=== PATIENT | male | born 1995 | race African-American/Black ===

== ENCOUNTER → 2017-01-27 | Outpatient (CLI) | payer MEDICAID ==
[~2017-01-27] MED LIST: ALBU8I INH; CLOZ100 PO; CLOZ100T3 PO; CLOZ200T PO; DEPA500T3 PO; DIVA250T PO; DIVA500 PO; FLOV44AE IN; PALI234P IM; VENTAER INH
--- NOTE | 2017-01-27 13:49 | EKG ---
Date Performed: 01/27/2017 Time Performed: 13:16:06 PTAGE: 21 years EKG: Normal Sinus rhythm Normal EKG Compared to the PREVIOUS TRACING rate has decreased. PREVIOUS TRACIN09/20/2015 12.04 DOCTOR: Roderick Diehl Interpretating Date/Time 01/27/2017 13:48:35
== END ==
LOC: HCAV 13:01 → EDBD 13:01
PROVIDERS: ATTEND Psychiatry & Neurology Child & Adolescent Psychiatry
DX: F20.3 Undifferentiated schizophrenia (principal)
CPT/HCPCS: 93005

== ENCOUNTER 2017-02-27 02:04 | Emergency (ER) | payer MEDICAID, OTHER ==
[~2017-02-27] VITALS: Ht 170.2 cm; Wt 72.7 kg
[~2017-02-27 02:04] MED LIST changes: -CLOZ200T PO; -DIVA250T PO
[2017-02-27 02:13] VITALS: BP 140/78; PULSE 112; RESP 20; O2SAT 98
[2017-02-27] MEDS ORDERED: LORazepam 2 MG/ML VIAL IM ONE (02:30)
[2017-02-27] MEDS ORDERED: HALOPERIDOL LACTATE 5 MG/ML AMP IM ONE (02:30)
--- NOTE | 2017-02-27 02:35 | PD ---
HPI Chief Complaint: Psychiatric Symptoms Time Seen by Provider: 02:31 Travel History International Travel<30 days: No Contact w/Intl Traveler<30days: No Traveled to known affect area: No History of Present Illness HPI 22-year-old black male presents to emergency department under [place] act by PD. Family had called police notifying them that he had been leaving the house and they were concerned that he had been doing drugs and he has been noncompliant with his medications. He has a history of developmental delay. They state that he has the intelligence of a 10-year-old. The patient here denies any suicidal or homicidal ideation. Patient babbles incoherently at times. PFSH Past Medical History Medical History: Unable to Obtain ADHD: No Asthma: Yes Anxiety: Yes Depression: Yes Cancer: No (See EMR) Cardiovascular Problems: No (See EMR) Diabetes: No (See EMR) Diminished Hearing: No Headaches: No (See EMR) Neurologic: No Psychiatric: Yes Respiratory: Yes (ASTHMA) Immunizations Current: Yes Migraines: No Schizophrenia: Yes Seizures: No (See EMR) Thyroid Disease: No Ulcer: No Tetanus Vaccination: Unknown Influenza Vaccination: No PNEUMOCCOCAL Vaccine (Year): 1 Past Surgical History Surgical History: Unable to Obtain Social History Alcohol Use: No Tobacco Use: Yes (4 CIGS A DAY) Substance Use: Yes (PT STATES " OCCASIONAL POT") Allergies-Medications (Allergen,Severity, Reaction): Coded Allergies: aspirin (Unverified Allergy, Severe, TACHYCARDIA, 01/28/17) Reported Meds & Prescriptions Reported Meds & Active Scripts Active Review of Systems ROS Limitations: Psychotic, Poor Historian Except as stated in HPI: all other systems reviewed are Neg Physical Exam Narrative GENERAL: Well-nourished, well-developed patient. SKIN: Warm and dry. HEAD: Normocephalic and atraumatic. EYES: No scleral icterus. No injection or drainage. ENT: Positive nasal congestion noted. Mucous membranes pink. Airway patent. NECK: Supple, trachea midline. Moves head freely without obvious discomfort. CARDIOVASCULAR: Regular rate and rhythm without murmurs, gallops, or rubs. RESPIRATORY: Few rhonchi. No wheezes. GASTROINTESTINAL: Abdomen soft, non-tender, nondistended. EXTREMITIES: No cyanosis or edema. BACK: Nontender without obvious deformity. No CVA tenderness. NEURO: Patient is alert and oriented. no sensorimotor deficits. Nonfocal. Normal speech. PSYCH: Poor insight and judgment. No auditory or visual hallucinations. Babbles incoherently at times. Data Data Last Documented VS Vital Signs Date Time Temp Pulse Resp B/P (MAP) Pulse Ox O2 Delivery O2 Flow Rate FiO2 02/27/17 02:13 112 20 140/78 (98) 98 Orders Orders Complete Blood Count With Diff (02/27/17 02:17) Comprehensive Metabolic Panel (02/27/17 02:17) Valproic Acid (Depakene) (02/27/17 02:17) Psych Screen (02/27/17 02:17) Drug Screen, Random Urine (02/27/17 02:17) Haloperidol Inj (Haldol Inj) (02/27/17 02:30) Lorazepam Inj (Ativan Inj) (02/27/17 02:30) Chest, Single Ap (02/27/17 03:14) Labs Laboratory Tests Test 02/27/17 02:23 02/27/17 04:38 White Blood Count 22.1 TH/MM3 Red Blood Count 5.45 MIL/MM3 Hemoglobin 14.5 GM/DL Hematocrit 43.2 % Mean Corpuscular Volume 79.3 FL Mean Corpuscular Hemoglobin 26.7 PG Mean Corpuscular Hemoglobin Concent 33.7 % Red Cell Distribution Width 13.1 % Platelet Count 260 TH/MM3 Mean Platelet Volume 8.1 FL Neutrophils (%) (Auto) 79.2 % Lymphocytes (%) (Auto) 14.1 % Monocytes (%) (Auto) 5.4 % Eosinophils (%) (Auto) 0.6 % Basophils (%) (Auto) 0.7 % Neutrophils # (Auto) 17.5 TH/MM3 Lymphocytes # (Auto) 3.1 TH/MM3 Monocytes # (Auto) 1.2 TH/MM3 Eosinophils # (Auto) 0.1 TH/MM3 Basophils # (Auto) 0.1 TH/MM3 CBC Comment DIFF FINAL Differential Comment Blood Urea Nitrogen 12 MG/DL Creatinine 1.17 MG/DL Random Glucose 94 MG/DL Total Protein 8.2 GM/DL Albumin 4.4 GM/DL Calcium Level 8.7 MG/DL Alkaline Phosphatase 80 U/L Aspartate Amino Transf (AST/SGOT) 18 U/L Alanine Aminotransferase (ALT/SGPT) 18 U/L Total Bilirubin 0.9 MG/DL Sodium Level 138 MEQ/L Potassium Level 3.5 MEQ/L Chloride Level 107 MEQ/L Carbon Dioxide Level 20.8 MEQ/L Anion Gap 10 MEQ/L Estimat Glomerular Filtration Rate 94 ML/MIN Valproic Acid (Depakene) Level 36 MCG/ML [facility] Medical Decision Making Medical Screen Exam Complete: Yes Emergency Medical Condition: Yes Medical Record Reviewed: Yes Interpretation(s) Laboratory Tests Test 02/27/17 02:23 02/27/17 04:38 White Blood Count 22.1 TH/MM3 Red Blood Count 5.45 MIL/MM3 Hemoglobin 14.5 GM/DL Hematocrit 43.2 % Mean Corpuscular Volume 79.3 FL Mean Corpuscular Hemoglobin 26.7 PG Mean Corpuscular Hemoglobin Concent 33.7 % Red Cell Distribution Width 13.1 % Platelet Count 260 TH/MM3 Mean Platelet Volume 8.1 FL Neutrophils (%) (Auto) 79.2 % Lymphocytes (%) (Auto) 14.1 % Monocytes (%) (Auto) 5.4 % Eosinophils (%) (Auto) 0.6 % Basophils (%) (Auto) 0.7 % Neutrophils # (Auto) 17.5 TH/MM3 Lymphocytes # (Auto) 3.1 TH/MM3 Monocytes # (Auto) 1.2 TH/MM3 Eosinophils # (Auto) 0.1 TH/MM3 Basophils # (Auto) 0.1 TH/MM3 CBC Comment DIFF FINAL Differential Comment Blood Urea Nitrogen 12 MG/DL Creatinine 1.17 MG/DL Random Glucose 94 MG/DL Total Protein 8.2 GM/DL Albumin 4.4 GM/DL Calcium Level 8.7 MG/DL Alkaline Phosphatase 80 U/L Aspartate Amino Transf (AST/SGOT) 18 U/L Alanine Aminotransferase (ALT/SGPT) 18 U/L Total Bilirubin 0.9 MG/DL Sodium Level 138 MEQ/L Potassium Level 3.5 MEQ/L Chloride Level 107 MEQ/L Carbon Dioxide Level 20.8 MEQ/L Anion Gap 10 MEQ/L Estimat Glomerular Filtration Rate 94 ML/MIN Valproic Acid (Depakene) Level 36 MCG/ML Last 24 hours Impressions Chest X-Ray 02/27/17 0314 Signed Impressions: Service Date/Time: February 03:50 - CONCLUSION: No acute cardiopulmonary process. Emiliano Mata MD Differential Diagnosis MDM: High Differential diagnoses: Schizophrenia, schizoaffective disorder, bipolar, anxiety, depression, adjustment reaction, mood disorder NOS, ODD, depressive disorder NOS, dementia, dementia with agitation, psychosis NOS, substance induced mood disorder, intermittent explosive disorder, Asperger syndrome, infection,electrolyte abnormality, malingering. Narrative Course Mental health screening discussed with the patient. Psychiatric screen ordered. The patient is medicated with Haldol 5 mg and Ativan 2 mg IM for his agitation. Patient is a flight risk. He appears to be unreliable. Diagnosis Primary Impression: Medical clearance for psychiatric admission Additional Impression: Schizophrenia, paranoid type Condition: Stable Edilberto Romano Feb 27, 2017 02:35
[2017-02-27 02:50] LABS: AUTOMATED NEUTROPHIL # 17.5 TH/MM3 (1.8-7.7); BASOPHIL # 0.1 TH/MM3 (0-0.2); BASOPHIL % 0.7 % (0.0-2.0); EOSINOPHIL # 0.1 TH/MM3 (0-0.4); EOSINOPHIL % 0.6 % (0.0-4.0); HEMATOCRIT 43.2 % (39.0-51.0); HEMO FLAGS DIFF FINAL; LYMPH % 14.1 % (9.0-44.0); LYMPHOCYTE # 3.1 TH/MM3 (1.0-4.8); MEAN CELL VOLUME 79.3 FL (80.0-100.0); MEAN CORPUSCULAR HEMOGLOBIN 26.7 PG (27.0-34.0); MEAN CORPUSCULAR HGB CONC 33.7 % (32.0-36.0); MONO % 5.4 % (0.0-8.0); NEUT % 79.2 % (16.0-70.0); PLATELET COUNT 260 TH/MM3 (150-450); RED BLOOD COUNT 5.45 MIL/MM3 (4.50-5.90); RED CELL DISTRIBUTION WIDTH 13.1 % (11.6-17.2); WHITE BLOOD COUNT 22.1 TH/MM3 (4.0-11.0)
[2017-02-27 03:00] LABS: ALT (GPT) 18 U/L (12-78); ANION GAP 10 MEQ/L (5-15); AST (GOT) 18 U/L (15-37); BICARBONATE 20.8 MEQ/L (21.0-32.0); BLOOD UREA NITROGEN 12 MG/DL (7-18); CHLORIDE 107 MEQ/L (98-107); GLOMERULAR FILTRATION RATE 94 ML/MIN (>89); POTASSIUM 3.5 MEQ/L (3.5-5.1); SODIUM (NA) 138 MEQ/L (136-145)
[2017-02-27 03:02] LABS: ALKALINE PHOSPHATASE 80 U/L (45-117); TOTAL BILIRUBIN ADULT 0.9 MG/DL (0.2-1.0)
--- NOTE | 2017-02-27 04:28 | RADRPT ---
EXAM DATE/TIME: 02/27/2017 03:50 [facility] COMPARISON: No previous studies available for comparison. INDICATIONS : Congestion. Cough. MEDICAL HISTORY : None. SURGICAL HISTORY : None. ENCOUNTER: Initial ACUITY: 1 day PAIN SCORE: 6/10 LOCATION: Bilateral chest FINDINGS: A single view of the chest demonstrates the lungs to be symmetrically aerated without evidence of mas s, infiltrate or effusion. The cardiomediastinal contours are unremarkable. Osseous structures are intact. CONCLUSION: No acute cardiopulmonary process. Emiliano Mata MD on February 27, 2017 at 4:27 Board Certified Radiologist. This report was verified electronically.
[2017-02-27 08:19] VITALS: BP 124/65; PULSE 87; RESP 18; TEMP 98; O2SAT 100
[2017-02-27 17:31] VITALS: BP 134/74; PULSE 68; RESP 16; TEMP 97.8; O2SAT 98
[2017-02-27] MEDS ORDERED: cloZAPine 100 MG TAB PO ONE (17:45)
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
[2017-02-27] MEDS ORDERED: CLOZ200T PO (17:56)
== END 2017-02-27 18:35 | disposition home or self-care (01) ==
LOC: NEPD 02:04 → NEPJ 18:35
DX: F20.0 Paranoid schizophrenia (principal); J45.909 Unspecified asthma, uncomplicated; F41.9 Anxiety disorder, unspecified; F32.9 Major depressive disorder, single episode, unspecified; F17.210 Nicotine dependence, cigarettes, uncomplicated; Z88.6 Allergy status to analgesic agent
CPT/HCPCS: 71010; 80053; 80164; 80307; 85025; 96372; J1630; J2060

== ENCOUNTER 2017-03-01 14:36 | Emergency (ER) | payer MEDICAID, OTHER ==
[~2017-03-01 14:36] MED LIST changes: -ALBU8I INH; -CLOZ100 PO; -CLOZ100T3 PO; +CLOZ200T PO; -DEPA500T3 PO; -DIVA500 PO; -FLOV44AE IN; -PALI234P IM; -VENTAER INH
[2017-03-01 14:38] VITALS: BP 119/82; PULSE 97; RESP 18; TEMP 98.1; O2SAT 100
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
[2017-03-01 16:06] LABS: AUTOMATED NEUTROPHIL # 6.4 TH/MM3 (1.8-7.7); BASOPHIL # 0.1 TH/MM3 (0-0.2); BASOPHIL % 0.6 % (0.0-2.0); EOSINOPHIL # 0.2 TH/MM3 (0-0.4); EOSINOPHIL % 1.8 % (0.0-4.0); HEMATOCRIT 41.1 % (39.0-51.0); HEMO FLAGS DIFF FINAL; LYMPH % 26.5 % (9.0-44.0); LYMPHOCYTE # 2.8 TH/MM3 (1.0-4.8); MEAN CELL VOLUME 80.5 FL (80.0-100.0); MEAN CORPUSCULAR HEMOGLOBIN 26.6 PG (27.0-34.0); MONO % 10.3 % (0.0-8.0); NEUT % 60.8 % (16.0-70.0); PLATELET COUNT 228 TH/MM3 (150-450); RED BLOOD COUNT 5.11 MIL/MM3 (4.50-5.90); RED CELL DISTRIBUTION WIDTH 13.1 % (11.6-17.2); WHITE BLOOD COUNT 10.5 TH/MM3 (4.0-11.0)
[2017-03-01 16:40] LABS: BLOOD, URINE NEG (NEG); COMMENT (UR) CULT NOT INDICATED; CULTURE IF INDICATED CULT NOT INDICATED; GLUCOSE,URINE NEG (NEG); KETONE, URINE 10 mg/dL (NEG); MUCUS URINE FEW /lpf (OCC); NITRITE,URINE NEG (NEG); URINE COLOR YELLOW (YELLW/STRAW)
[2017-03-01 16:57] LABS: ALKALINE PHOSPHATASE 79 U/L (45-117); ALT (GPT) 19 U/L (12-78); ANION GAP 8 MEQ/L (5-15); AST (GOT) 22 U/L (15-37); BICARBONATE 25.2 MEQ/L (21.0-32.0); BLOOD UREA NITROGEN 11 MG/DL (7-18); CHLORIDE 105 MEQ/L (98-107); GLOMERULAR FILTRATION RATE 132 ML/MIN (>89); POTASSIUM 3.9 MEQ/L (3.5-5.1); SODIUM (NA) 138 MEQ/L (136-145); TOTAL BILIRUBIN ADULT 0.9 MG/DL (0.2-1.0)
[2017-03-05 06:20] LABS: CLOZAPINE/NORCLOZAPINE TOTAL Unable to calculate ng/mL (>450); NORCLOZAPINE <25 ng/mL
== END 2017-03-01 17:33 | disposition home or self-care (01) ==
LOC: NEPD 14:36
DX: F29 Unspecified psychosis not due to a substance or known physiological condition (principal); F39 Unspecified mood [affective] disorder; J45.909 Unspecified asthma, uncomplicated; F41.9 Anxiety disorder, unspecified; F20.9 Schizophrenia, unspecified; F17.210 Nicotine dependence, cigarettes, uncomplicated
CPT/HCPCS: 80053; 80159; 80307; 81001; 85025; 99284; G0480

== ENCOUNTER 2017-03-01 18:15 | Inpatient (IN) | payer MEDICAID, OTHER ==
[~2017-03-01] VITALS: Ht 167.6 cm; Wt 60.2 kg
[2017-03-01 18:20] VITALS: BP 137/80; PULSE 113; RESP 20; TEMP 98; O2SAT 98
[2017-03-01] MEDS ORDERED: cloZAPine 100 MG TAB PO ONE (20:00)
--- NOTE | 2017-03-01 20:06 | PD ---
HPI Chief Complaint: Psychiatric Symptoms Time Seen by Provider: 19:50 Travel History International Travel<30 days: No Contact w/Intl Traveler<30days: No Traveled to known affect area: No History of Present Illness HPI 22-year-old male with history of schizophrenia presents to emergency department acutely psychotic. Patient offers no history. He is rambling with mumbled speech. He is demonstrating very bizarre behavior. He appears without distress. PFSH Past Medical History ADHD: No Asthma: Yes Anxiety: Yes Depression: Yes Cancer: No (See EMR) Diabetes: No (See EMR) Diminished Hearing: No Neurologic: No Psychiatric: Yes Respiratory: Yes (ASTHMA) Immunizations Current: Yes Migraines: No Schizophrenia: Yes Thyroid Disease: No Ulcer: No PNEUMOCCOCAL Vaccine (Year): 1 Social History Alcohol Use: No Tobacco Use: Yes (4 CIGS A DAY) Substance Use: No Allergies-Medications (Allergen,Severity, Reaction): Coded Allergies: aspirin (Unverified Allergy, Severe, TACHYCARDIA, 01/28/17) Reported Meds & Prescriptions Reported Meds & Active Scripts Active Clozapine 200 Mg Tab 400 Mg PO DAILY 5 Days Clozapine 200 Mg Tab 200 Mg PO DAILY 5 Days Review of Systems Except as stated in HPI: all other systems reviewed are Neg Physical Exam Narrative GENERAL: Well-nourished, well-developed male patient, ambulatory, pacing, rambling but in no acute distress SKIN: Focused skin assessment warm/dry. HEAD: Normocephalic. EYES: No scleral icterus. No injection or drainage. NECK: Supple, trachea midline. No JVD or lymphadenopathy. CARDIOVASCULAR: Regular rate and rhythm without murmurs, gallops, or rubs. RESPIRATORY: Breath sounds equal bilaterally. No accessory muscle use. GASTROINTESTINAL: Abdomen soft, non-tender, nondistended. MUSCULOSKELETAL: No cyanosis, or edema. BACK: Nontender without obvious deformity. No CVA tenderness. Data Data Last Documented VS Vital Signs Date Time Temp Pulse Resp B/P (MAP) Pulse Ox O2 Delivery O2 Flow Rate FiO2 03/01/17 18:20 98.0 113 20 137/80 (99) 98 Room Air Orders Orders Clozapine (Clozaril) (03/01/17 20:00) Psych Screen (03/01/17 20:12) Admit Order (Ed Use Only) (03/01/17 22:06) Admit To Inpatient Psych (03/01/17 ) Vital Signs (Adult) [id number].Q12H.E (03/01/17 22:06) Activity Oob Ad Julissa (03/01/17 22:06) Level Of Observation (Psych) (03/01/17 22:06) Diet Regular Basic (03/02/17 Breakfast) Basic Metabolic Panel (Bmp) (03/02/17 06:00) Lipid Profile (03/02/17 06:00) Hemoglobin (Hgb) A1c (03/02/17 06:00) MDM Medical Decision Making Medical Screen Exam Complete: Yes Emergency Medical Condition: Yes Medical Record Reviewed: Yes Differential Diagnosis Acute psychosis versus mood disorder versus personality disorder discusses adjustment reaction disorder versus substance abuse Narrative Course 22-year-old male returns to the emergency department for evaluation of acute psychosis. Patient's history of schizophrenia. Patient was just discharged. Lab work will not be repeated. He is medically cleared to undergo psychiatric screening for further evaluation and disposition. Mental health screening discussed with the patient. Psychiatric screen ordered. Diagnosis Primary Impression: Acute psychosis Additional Impression: Medical clearance for psychiatric admission Condition: Kalyani Gibbs Mar 01, 2017 20:06
[2017-03-01 22:45] VITALS: BP 155/75; PULSE 98; RESP 20; O2SAT 100
[2017-03-01] MEDS ORDERED: MAGNESIUM HYDROXIDE SUSP 30 ML CUP PO PRN (23:45)
[2017-03-01] MEDS ORDERED: LORazepam 1 MG TAB PO PRN (23:45)
[2017-03-01] MEDS ORDERED: LORazepam 2 MG/ML VIAL IM PRN (23:45)
[2017-03-01] MEDS ORDERED: ALUMINUM/MAGNESIUM/SIMETH 30 ML CUP PO PRN (23:45)
[2017-03-01] MEDS ORDERED: ACETAMINOPHEN 325 MG TAB PO PRN (23:45)
[2017-03-02 05:34] VITALS: BP 112/59; PULSE 63; RESP 15; TEMP 98.6; O2SAT 96
[2017-03-02] MEDS: NICOTINE 21 MG/24 HR PATCH T-DERMAL SCH (09:00)
[2017-03-02] MEDS: OLANZapine 5 MG TAB PO SCH ×2 (11:18→20:59)
--- NOTE | 2017-03-02 11:53 | HHI.HP ---
Provisional Diagnosis Admission Date Mar 01, 2017 at 22:09 [place] I. Chronic paranoid schizophrenia [place] II. Deferred [place] III. No significant medical history [place] IV. Multiple psychiatric hospitalizations [place] V. 40 Certification of Person's Competence To Provide Express and Informed Consent I have personally examined Divine Gay , a person being served at [facility] on, Mar 02, 2017 11:34. Express and informed consent means consent voluntarily given in writing, by a competent person, after sufficient explanation and disclosure of the subject matter involved to enable the person to make a knowing and willful decision without any element of force, fraud, deceit, duress, or other form of constraint or coercion. This person is 18 years of age or older, is not now known to be incompetent to consent to treatment with a guardian advocate, and does not have a health care surrogate or proxy currently making medical treatment decisions. I have found this person to be one of the following: [] Competent to provide express and informed consent, as defined above, for voluntary admission to this facility and is competent to provide express and informed consent for treatment. He/she has the consistent capacity to make well reasoned, willful, and knowing decisions concerning his or her medical or mental health treatment. The person fully and consistently understands the purpose of the admission for examination/placement and is fully capable of personally exercising all rights assured under [place] [] Incompetent to provide express and informed consent to voluntary admission, and this is incompetent to provide express and informed consent to treatment. The person must be transferred to involuntary status and a petition for a guardian advocate filed with the Circuit Court. [x] Refusing to provide express and informed consent to voluntary admission but is competent to provide express and informed consent for treatment. The person must be discharged or transferred to involuntary status. Form shall be completed within 24 hours of a person's arrival at the receiving facility and filed in the clinical record of each person: 1. Admitted on a voluntary basis 2. Permitted to provide express and informed consent to his/her own treatment 3. Allowed to transfer from involuntary to voluntary status 4. Prior to permitting a person to consent to his or her own treatment after having been previously found incompetent to consent to treatment. History of Present Illness Capacity: Has Capacity HPI The patient is a 22-year-old man, domicile with his mother, unemployed, single, with psychiatric history of schizophrenia paranoid type, multiple psychiatric hospitalizations, last hospitalization was here at [place] in 2016, he was seen by me that 2 days ago in [place] for medication refill, but as per mother pharmacy did not fill up his medication because the patient did not have a current CBC, patient is supposed to be in Clozaril 400 mg at bedtime and 200 mg a.m., Depakote 500 g twice a day. He does not have any medical history, he was brought to the ER this time because patient has been decompensating of his psychosis. On psychiatric evaluation today patient is oppositional, not answering my questions, he keeps rambling disorganized, internally preoccupied. Collateral information from his Mother, Nadege Valencia : He has not been taking his medication for a bout three days and he had decompensated since yesterday. He ran out of medication and he could not go to psychiatrist due to [place]ric[place]. He is supposed to be taking Clozaril 200 mg am 400 mg hs, not taking int for about 3 days. Depakote 500 mg bid. When he was taking his medication he was stable. She does not have any problem taking the patient back once his is stable. She does not have any safety complaining of this moment. She reports that the patient occasionally uses marijuana. Review of Systems ROS Limitations: Uncooperative Past Psych History Violence risk - self (6 mos) Elevated Substance Abuse History Drugs/Alcohol past 12 months Patient uses marijuana occasionally Past Family Social History Coded Allergies: aspirin (Unverified Allergy, Severe, TACHYCARDIA, 01/28/17) Active Scripts Clozapine (Clozapine) 200 Mg Tab, 400 MG PO DAILY for Schizophrenia for 5 Days, #10 TAB 0 Refills Prov:Cruz,Zoraida Henny Cornell VESSEL LINER 02/27/17 Clozapine (Clozapine) 200 Mg Tab, 200 MG PO DAILY for Schizophrenia for 5 Days, #5 TAB 0 Refills Prov:Cruz,Zoraida Henny Cornell VESSEL LINER 02/27/17 Current Medications Medications (Trade) Dose Ordered Sig/Harvey Route Start Time Stop Time Status Last Admin (Ativan) 1 mg Q6H PRN PO 03/01/17 23:45 (Ativan Inj) 1 mg Q6H PRN IM 03/01/17 23:45 (Tylenol) 650 mg Q4H PRN PO 03/01/17 23:45 (Milk Of Magnesia Liq) 30 ml DAILY PRN PO 03/01/17 23:45 (Mag-Al Plus Susp Liq) 30 ml Q6H PRN PO 03/01/17 23:45 (Habitrol 21 Mg Patch.24 Hr) 1 patch DAILY T-DERMAL 03/02/17 09:00 Miscellaneous Information 1 HS T-DERMAL 03/02/17 21:00 (ZyPREXA) 5 mg BID PO 03/02/17 09:00 03/02/17 11:18 Family History No family psychiatric history Social History Patient was born and raised in [place], he lives with his mother and [facility], he is unemployed, single Patient's Strengths (min. 2) Family support Physical Exam No EPS, no tremors, no psychomotor agitation or retardation, no stiffness present Vital Signs Vital Signs Date Time Temp Pulse Resp B/P (MAP) Pulse Ox O2 Delivery O2 Flow Rate FiO2 03/02/17 05:34 98.6 63 15 112/59 (76) 96 03/01/17 18:20 Room Air Lab Results Depakote levels 36 Mental Status Examination Mental status is limited at this time due to his lack of cooperation Appearance man, [facility], fair hygiene, uncooperative, Speech: Hesitant, Other (selectively mute) Thought Process: Other (disorganized) Assessment & Plan Problem List: (1) schizophrenic disorder chronic paranoid type Status: Acute Assessment & Plan: On psychiatric evaluation today patient seems to be disorganized, refusing to cooperate, selectively mute, but definitely internally stimulated, rambling. His mother reported that he has been disorganized, not sleeping at all, talking to himself since he has been running out of his medication for about 3 days. Patient will be admitted in psychiatry for stabilization. Will start Clozaril 25 mg bid and will titrate as patient can tolerate to his outpatient stable dose. We will restart Depakote 500 mg twice a day. Monitor closely mood and behavior. We'll order olanzapine 10 mg IM every 8 hours when necessary aggressive behavior and agitation. Labs reviewed. Patient will be admitted in the 2700 unit. direct service worker intervention for psychosocial assessment and coordination of safe discharge planning. Assessment & Plan Estimated LOS: Bear Duque MD Mar 02, 2017 11:52
[2017-03-02 17:11] VITALS: BP 114/61; PULSE 86; RESP 18; TEMP 98.5; O2SAT 99
[2017-03-02] MEDS: REMOVE OLD NICOTINE PATCH T-DERMAL SCH (21:00)
[2017-03-03] MEDS ORDERED: OLANZapine IM 10 MG VIAL IM ONE (00:14)
[2017-03-03] MEDS ORDERED: OLANZapine IM 10 MG VIAL IM SCH (00:15)
[2017-03-03 06:06] VITALS: BP 124/66; PULSE 80; RESP 17; TEMP 97.7; O2SAT 100
--- NOTE | 2017-03-03 08:38 | PD.PSY.CON ---
Provisional Diagnosis Admission Date Mar 01, 2017 at 22:09 [place] I. 1. Schizophrenia, paranoid type, acute exacerbation [place] II. Deferred History of Present Illness Service Psychiatry Consult Requested By Dr. Lopez Reason for Consult Second opinion for involuntary psychiatric hospitalization Primary Care Physician Unknown HPI From Dr. Lopez's H&P: The patient is a 22-year-old man, domicile with his mother, unemployed, single, with psychiatric history of schizophrenia paranoid type, multiple psychiatric hospitalizations, last hospitalization was here at [place] in 2016, he was seen by me that 2 days ago [place] for medication refill, but as per mother pharmacy did not fill up his medication because the patient did not have a current CBC, patient is supposed to be in Clozaril 400 mg at bedtime and 200 mg a.m., Depakote 500 g twice a day. He does not have any medical history, he was brought to the ER this time because patient has been decompensating of his psychosis. On psychiatric evaluation today patient is oppositional, not answering my questions, he keeps rambling disorganized, internally preoccupied. Collateral information from his Mother, Nadege Valencia : He has not been taking his medication for a bout three days and he had decompensated since yesterday. He ran out of medication and he could not go to psychiatrist due to [place]ric[place]. He is supposed to be taking Clozaril 200 mg am 400 mg hs, not taking int for about 3 days. Depakote 500 mg bid. When he was taking his medication he was stable. She does not have any problem taking the patient back once his is stable. She does not have any safety complaining of this moment. She reports that the patient occasionally uses marijuana. On my examination today: Patient seen and examined with nurse. Chart reviewed. Case discussed with nursing staff. On my exam today, patient appears frankly internally stimulated. He is muttering to himself and displaying odd facial expressions. He is delayed with respect to his thought process and appears to be experiencing thought blocking. He cocks his head to one side suddenly and tells me that this is because a demon has stabbed him in the head. Affect is flat. He is unable to tell me whether he is suicidal or homicidal and appears unreliable to contract for safety presently. Psychiatric interview was quite limited because of his degree of thought disorder. Called by the nurse shortly after making rounds: patient agitated, yelling and hitting the wall in his room. I have ordered patient medicated with Zyprexa ETO. Unable to obtain meaningful past psychiatric, family, chemical dependency or social history from this patient because of his degree of psychiatric decompensation at present. Charge nurse has obtained a medication list from the patient's mother, and this is: Depakote 250 mg twice daily, Clozaril 100 mg in the morning and 200 mg at bedtime, and hydroxyzine 25 mg 3 times daily. Review of Systems ROS Limitations: Psychotic, Poor Historian Except as stated in HPI: all other systems reviewed are Neg Past Family Social History Coded Allergies: aspirin (Unverified Allergy, Severe, TACHYCARDIA, 01/28/17) Past Medical History See electronic medical record Active Scripts Clozapine (Clozapine) 200 Mg Tab, 400 MG PO DAILY for Schizophrenia for 5 Days, #10 TAB 0 Refills Prov:Cruz,Zoraida Henny Cornell PROJECTION TECHNICIAN 02/27/17 Clozapine (Clozapine) 200 Mg Tab, 200 MG PO DAILY for Schizophrenia for 5 Days, #5 TAB 0 Refills Prov:Cruz,Zoraida Henny Cornell PROJECTION TECHNICIAN 02/27/17 Current Medications Medications (Trade) Dose Ordered Sig/Harvey Route Start Time Stop Time Status Last Admin (Tylenol) 650 mg Q4H PRN PO 03/01/17 23:45 (Milk Of Magnesia Liq) 30 ml DAILY PRN PO 03/01/17 23:45 (Mag-Al Plus Susp Liq) 30 ml Q6H PRN PO 03/01/17 23:45 (Habitrol 21 Mg Patch.24 Hr) 1 patch DAILY T-DERMAL 03/02/17 09:00 Miscellaneous Information 1 HS T-DERMAL 03/02/17 21:00 (ZyPREXA) 5 mg BID PO 03/02/17 09:00 03/02/17 20:59 Family History Unable to obtain because of patient's degree of psychiatric decompensation Social History Unable to obtain because of patient's degree of psychiatric decompensation Patient's Strengths (min. 2) In a monitored setting. Verbally fluent. Physical Exam Physical exam completed by ED provider. On my examination today, the patient appears to be in no acute physical distress. No motor abnormalities noted. Labs and vitals reviewed: Vital Signs Vital Signs Date Time Temp Pulse Resp B/P (MAP) Pulse Ox O2 Delivery O2 Flow Rate FiO2 03/03/17 06:06 97.7 80 17 124/66 (85) 100 03/01/17 18:20 Room Air Lab Results Item Value Date Time Sodium Level 138 MEQ/L 03/03/17 1015 Potassium Level 4.1 MEQ/L 03/03/17 1015 Chloride Level 107 MEQ/L 03/03/17 1015 Carbon Dioxide Level 23.6 MEQ/L 03/03/17 1015 Blood Urea Nitrogen 10 MG/DL 03/03/17 1015 Creatinine 0.83 MG/DL 03/03/17 1015 Random Glucose 89 MG/DL 03/03/17 1015 Hemoglobin A1c is listed as in process. No CBC or LFTs obtain this admission, although they were recently obtained on and I have reviewed these. Mental Status Examination No motor abnormalities noted except for the odd facial expressions. Appearance In hospital gown. Fairly disheveled. Speech: Other (rambling, somewhat hesitant) Orientation: Person Memory: Impaired (describe) (difficult to assess, psychosis interferes) Thought Process: Other (delayed with thought blocking) Thought Content: Paranoid Language Limited sample but seems fairly unremarkable Fund of Knowledge Suspect somewhat decreased but limited sample Hallucination Type: Auditory, Visual, Tactile Attention and Concentration: Easily Distracted Suicidal Ideation: No (none voiced but unreliable to contract for safety) Homicidal Ideation: No (none voiced but unreliable to contract for safety) Insight: Poor Judgment: Poor Affect if Inappropriate: Flat Mood: Other (no reported issues with mood) Motor Activity: Normal gait Assessment & Plan Problem List: (1) Schizophrenia, paranoid type ICD Codes: F20.0 - Paranoid schizophrenia Status: Acute Assessment & Plan Given the circumstances of the patient's presentation here, and his presentation on my examination today, I concur with Dr. Lopez that the patient meets criteria for involuntary psychiatric hospitalization under the [place] act. I've completed the second opinion paperwork. I am covering for Dr. Lopez today, and this note serves as my progress note. I will check a stat CBC (needed for clozapine) and LFTs and restart patient's home meds clozapine, Depakote, and hydroxyzine at doses listed above as it appears that psychotic decompensation was driven by unintended med non-adherence. Plan to check a Depakote level after the appropriate interval. Continue to monitor on the high acuity unit in the meantime. Continue other medications and care as ordered. Discharge Planning Per Dr. Lopez Request HC Surrog/Guard Advoc?: Yes (I have additionally completed a healthcare surrogate and guardian advocate request as I desktop support engineer the patient incapacitated to consent for medications on my assessment.) Viktor Maria MD Mar 03, 2017 08:38
[2017-03-03] MEDS: OLANZapine 5 MG TAB PO SCH (09:00)
[2017-03-03] MEDS: NICOTINE 21 MG/24 HR PATCH T-DERMAL SCH (09:11)
[2017-03-03] MEDS ORDERED: OLANZapine IM 10 MG VIAL IM STA (10:06)
[2017-03-03 11:07] LABS: ANION GAP 7 MEQ/L (5-15); BICARBONATE 23.6 MEQ/L (21.0-32.0); BLOOD UREA NITROGEN 10 MG/DL (7-18); CHLORIDE 107 MEQ/L (98-107); GLOMERULAR FILTRATION RATE 139 ML/MIN (>89); POTASSIUM 4.1 MEQ/L (3.5-5.1); SODIUM (NA) 138 MEQ/L (136-145)
[2017-03-03 11:09] LABS: HDL CHOLESTEROL 48.5 MG/DL (40.0-60.0); LDL CHOLESTEROL 74 MG/DL (0-99)
[2017-03-03] MEDS: hydrOXYzine HCL 25 MG TAB PO SCH ×2 (13:00→18:06)
[2017-03-03] MEDS ORDERED: LORazepam 2 MG TAB PO PRN (13:15)
[2017-03-03] MEDS ORDERED: LORazepam 2 MG/ML VIAL IM PRN (13:15)
[2017-03-03] MEDS ORDERED: diphenhydrAMINE HCL 50 MG/ML VIAL IM PRN (13:15)
[2017-03-03] MEDS ORDERED: diphenhydrAMINE HCL 50 MG CAP PO PRN (13:15)
[2017-03-03 14:31] LABS: HEMOGLOBIN A1a 1.2 %; HEMOGLOBIN A1b 1.7 %; HEMOGLOBIN Ao 85.6 %; HEMOGLOBIN LA1C 1.9 %; HEMOGLOBIN P3 3.5 %
[2017-03-03] MEDS: DIVALPROEX SODIUM DELAYED RELEASE 250 MG TAB PO SCH (21:00)
[2017-03-03] MEDS ORDERED: cloZAPine 100 MG TAB PO SCH (21:00)
[2017-03-03] MEDS: REMOVE OLD NICOTINE PATCH T-DERMAL SCH (21:00)
[2017-03-03 23:21] LABS: INDIRECT BILIRUBIN 0.3 MG/DL (0.0-0.8); TOTAL BILIRUBIN ADULT 0.4 MG/DL (0.2-1.0)
[2017-03-04] MEDS: NICOTINE 21 MG/24 HR PATCH T-DERMAL SCH (09:00)
[2017-03-04] MEDS ORDERED: cloZAPine 100 MG TAB PO SCH (09:00)
[2017-03-04] MEDS: DIVALPROEX SODIUM DELAYED RELEASE 250 MG TAB PO SCH (09:07)
[2017-03-04] MEDS: hydrOXYzine HCL 25 MG TAB PO SCH ×2 (09:07→13:17)
[2017-03-04 09:43] LABS: AUTOMATED NEUTROPHIL # 3.2 TH/MM3 (1.8-7.7); BASOPHIL % 0.5 % (0.0-2.0); EOSINOPHIL # 0.3 TH/MM3 (0-0.4); EOSINOPHIL % 4.1 % (0.0-4.0); HEMATOCRIT 42.2 % (39.0-51.0); HEMO FLAGS DIFF FINAL; LYMPH % 40.3 % (9.0-44.0); LYMPHOCYTE # 2.8 TH/MM3 (1.0-4.8); MEAN CELL VOLUME 80.6 FL (80.0-100.0); MEAN CORPUSCULAR HEMOGLOBIN 26.9 PG (27.0-34.0); MEAN CORPUSCULAR HGB CONC 33.3 % (32.0-36.0); NEUT % 46.1 % (16.0-70.0); PLATELET COUNT 216 TH/MM3 (150-450); RED BLOOD COUNT 5.23 MIL/MM3 (4.50-5.90); RED CELL DISTRIBUTION WIDTH 13.3 % (11.6-17.2); WHITE BLOOD COUNT 6.9 TH/MM3 (4.0-11.0)
[2017-03-04] MEDS ORDERED: CLOZ200T PO (11:05)
[2017-03-04] MEDS ORDERED: DIVA250T PO (11:05)
--- NOTE | 2017-03-04 11:11 | HHI.DS ---
Psychiatry Discharge Summary Inpatient Psychiatric care?: Yes Advance Directive: No Reason Not Provided: Due to Patient Condition Mental Health AdvanceDirective: No Health Care Proxy: Yes Admission Admission Date Mar 01, 2017 at 22:09 Admission Diagnosis: (1) Schizophrenia, paranoid type ICD Code: F20.0 - Paranoid schizophrenia Brief History From Dr. Lopez's H&P: The patient is a 22-year-old man, domicile with his mother, unemployed, single, with psychiatric history of schizophrenia paranoid type, multiple psychiatric hospitalizations, last hospitalization was here at [facility] in 2016, he was seen by me that 2 days ago in [facility] for medication refill, but as per mother pharmacy did not fill up his medication because the patient did not have a current CBC, patient is supposed to be in Clozaril 400 mg at bedtime and 200 mg a.m., Depakote 500 g twice a day. He does not have any medical history, he was brought to the ER this time because patient has been decompensating of his psychosis. On psychiatric evaluation today patient is oppositional, not answering my questions, he keeps rambling disorganized, internally preoccupied. Collateral information from his Mother, Nadege Valencia : He has not been taking his medication for a bout three days and he had decompensated since yesterday. He ran out of medication and he could not go to psychiatrist due to [place]. He is supposed to be taking Clozaril 200 mg am 400 mg hs, not taking int for about 3 days. Depakote 500 mg bid. When he was taking his medication he was stable. She does not have any problem taking the patient back once his is stable. She does not have any safety complaining of this moment. She reports that the patient occasionally uses marijuana. On my examination today: Patient seen and examined with nurse. Chart reviewed. Case discussed with nursing staff. On my exam today, patient appears frankly internally stimulated. He is muttering to himself and displaying odd facial expressions. He is delayed with respect to his thought process and appears to be experiencing thought blocking. He cocks his head to one side suddenly and tells me that this is because a demon has stabbed him in the head. Affect is flat. He is unable to tell me whether he is suicidal or homicidal and appears unreliable to contract for safety presently. Psychiatric interview was quite limited because of his degree of thought disorder. Called by the nurse shortly after making rounds: patient agitated, yelling and hitting the wall in his room. I have ordered patient medicated with Zyprexa ETO. Unable to obtain meaningful past psychiatric, family, chemical dependency or social history from this patient because of his degree of psychiatric decompensation at present. Charge nurse has obtained a medication list from the patient's mother, and this is: Depakote 250 mg twice daily, Clozaril 100 mg in the morning and 200 mg at bedtime, and hydroxyzine 25 mg 3 times daily. Tobacco Use In Past 30 Days: Refused To Answer Alcohol Use: Never Hospital Course Patient was admitted in the psychiatric unit due to decompensation of his psychosis and for medication adjustment. Initial safety measures were taken. Psychosocial psychiatric assessment performed. Patient was restarted in Clozaril the lowest dose, that were titrated out fast to his usual outpatient dose. During the hospitalization the patient did not show any symptomatology of side effects of Clozaril, patient reached baseline days later, he was a little bit disorganized at times internally preoccupied and agitated, which seems to be part of his baseline. Social workers and psychiatric team communicated with his mother who did not share any safety concern about the patient other than going back to his usual medications. In one location the patient became agitated and difficult to redirect verbally the unit and ETO was needed. But at the moment of discharge, patient does not present prominent psychotic symptoms, he denies mood symptoms, he denies suicidal and homicidal ideation, he denies visual and auditory hallucinations. Results Blood Pressure 124 / 66 Vital Signs Date Time Temp Pulse Resp B/P (MAP) Pulse Ox O2 Delivery O2 Flow Rate FiO2 03/03/17 06:06 97.7 80 17 124/66 (85) 100 03/01/17 18:20 Room Air Laboratory Tests Test 03/03/17 10:15 03/04/17 07:35 Mean Corpuscular Hemoglobin 26.9 PG (27.0-34.0) Monocytes (%) (Auto) 9.0 % (0.0-8.0) Eosinophils (%) (Auto) 4.1 % (0.0-4.0) Laboratory Results Test 03/03/17 10:15 Cholesterol Level 141 MG/DL (120-200) HDL Cholesterol 48.5 MG/DL (40.0-60.0) Hemoglobin A1c 5.6 % (4.3-6.0) LDL Cholesterol 74 MG/DL (0-99) Triglycerides Level 95 MG/DL (42-150) Summary of Procedures No procedures done Pending results at discharge: No Medications # of Antipsychotic meds at D/C: 0 Approp Antipsych med options 1 - Minimum of three failed multiple trials of monotherapy. 2 - Documented plan to taper to monotherapy due to previous use of multiple meds OR cross-taper in progress at D/C. 3 - Documentation of augmentation of Clozapine. 4 - Justification other than those listed in allowable values 1-3, document here : Discharge Discharge Date: Mar 04, 2017 Discharge Diagnosis: (1) Schizophrenia, paranoid type ICD Code: F20.0 - Paranoid schizophrenia Status: Acute Mental Status Exam at Disch -Americans young man, fair hygiene, [facility], superficially cooperative, some what guarded. His his speech is hesitant, low volume. His mood is "I am fine", affect is flat. His thought process is logical, linear, somewhat concrete. Thought content is devoid of suicidal ideation, homicidal ideation, visual and auditory hallucinations at this moment. Insight, impulse control, judgment are fair. Cognition is intact. Pt Condition on Discharge: Fair Discharge Disposition: Discharge Home Discharge Instructions Diet Instructions: As Tolerated, No Restrictions Activities you can perform: Regular-No Restrictions Scheduled Appointment: Dr. Ashby Appointment Date: Mar 07, 2017 Appointment Time: 10:45 am Discharge Time > 30 minutes Discharge/Advance Care Plan Health Problems: (1) Schizophrenia, paranoid type Goals to promote your health * To prevent worsening of your condition and complications * To maintain your health at the optimal level Directions to meet your goals Take your medications as prescribed Follow your dietary instruction Follow activity as directed Keep your appointments as scheduled Take your immunizations and boosters as scheduled If your symptoms worsen call your PCP, if no PCP go to Urgent Care Center or Emergency Room For 06/01 questions related to your inpatient stay or results of tests pending at discharge, please contact Dr. Bear Lopez at Smoking is Dangerous to Your Health. Avoid second hand smoking Bear Lopez MD Mar 04, 2017 11:11
== END 2017-03-04 14:05 | disposition home or self-care (01) | DRG 885 ==
LOC: NEPJ 18:15 → NEDA 22:09 → H270 22:49
PROVIDERS: ADMIT Psychiatry & Neurology Psychiatry; ATTEND Psychiatry & Neurology Psychiatry
DX: F20.0 Paranoid schizophrenia (principal); Z91.138 Patient's unintentional underdosing of medication regimen for other reason; F17.210 Nicotine dependence, cigarettes, uncomplicated; F12.90 Cannabis use, unspecified, uncomplicated; T42.4X6A Underdosing of benzodiazepines, initial encounter; T42.6X6A Underdosing of other antiepileptic and sedative-hypnotic drugs, initial encounter; Z88.6 Allergy status to analgesic agent
CPT/HCPCS: 71010; 80048; 80053; 80061; 80076; 80159; 80164; 80307; 81001; 83036; 85025; 96372; 99284; G0480; J1630; J2060; Q0163

== ENCOUNTER 2017-03-29 11:41 | Inpatient (IN) | payer OTHER ==
[~2017-03-29] VITALS: Ht 167.6 cm; Wt 65.8 kg
[~2017-03-29 11:41] MED LIST changes: +DIVA250T PO
[2017-03-29 11:50] VITALS: BP 131/61; PULSE 98; RESP 15; TEMP 98.4; O2SAT 96
--- NOTE | 2017-03-29 12:07 | PD ---
HPI Chief Complaint: Psychiatric Symptoms Time Seen by Provider: 11:56 Travel History International Travel<30 days: No Contact w/Intl Traveler<30days: No Traveled to known affect area: No History of Present Illness HPI 22 yo M arrives as a [place] due to suicidal ideation statements, "maybe I should just ." Auditory hallucinations reported. Patient himself. Patient evidently smoked K2. He has no medical complaint. Location neuropsychiatric. Severity constant. Records show previous compliance with valproic acid. Patient states he does not take it today. PFSH Past Medical History ADHD: No Asthma: Yes Anxiety: Yes Depression: Yes Cancer: No (See EMR) Diabetes: No (See EMR) Diminished Hearing: No Headaches: No Neurologic: No Psychiatric: Yes (Hx of treatment for Schizophrenia) Respiratory: Yes (ASTHMA) Immunizations Current: Yes Migraines: No Schizophrenia: Yes Thyroid Disease: No Ulcer: No PNEUMOCCOCAL Vaccine (Year): 1 Social History Alcohol Use: No Tobacco Use: Yes (4 CIGS A DAY) Substance Use: No Allergies-Medications (Allergen,Severity, Reaction): Coded Allergies: aspirin (Unverified Allergy, Severe, TACHYCARDIA, 01/28/17) Reported Meds & Prescriptions Reported Meds & Active Scripts Active Divalproex DR (Divalproex Sodium) 250 Mg Tabdr 500 Mg PO Q12HR 60 Days Clozapine 200 Mg Tab 400 Mg PO DAILY 30 Days Clozapine 200 Mg Tab 200 Mg PO DAILY 30 Days Review of Systems ROS Limitations: Clinical Condition, Psychotic Physical Exam Narrative GENERAL: 22-year-old male well-nourished well-developed no acute distress appears to be responding to internal stimuli SKIN: Focused skin assessment warm/dry. HEAD: Atraumatic. Normocephalic. EYES: Pupils equal and round. No scleral icterus. No injection or drainage. ENT: No nasal bleeding or discharge. Mucous membranes pink and moist. NECK: Trachea midline. No JVD. CARDIOVASCULAR: Regular rate and rhythm. No murmur appreciated. RESPIRATORY: No accessory muscle use. Clear to auscultation. Breath sounds equal bilaterally. GASTROINTESTINAL: Abdomen soft, non-tender, nondistended. Hepatic and splenic margins not palpable. MUSCULOSKELETAL: No obvious deformities. No clubbing. No cyanosis. No edema. NEUROLOGICAL: Awake and alert. No obvious cranial nerve deficits. Motor grossly within normal limits. Normal speech. PSYCHIATRIC: + reports of SI; appears to be responding to internal stimuli Data Data Last Documented VS Vital Signs Date Time Temp Pulse Resp B/P (MAP) Pulse Ox O2 Delivery O2 Flow Rate FiO2 03/29/17 12:00 15 03/29/17 11:50 98.4 98 131/61 (84) 96 VS reviewed Orders Orders Valproic Acid (Depakene) (03/29/17 11:58) Psych Screen (03/29/17 11:58) Valproic Acid (Depakene) (03/29/17 13:15) Labs Laboratory Tests Test 03/29/17 12:05 Valproic Acid (Depakene) Level 23 MCG/ML MDM Medical Decision Making Medical Screen Exam Complete: Yes Emergency Medical Condition: Yes Medical Record Reviewed: Yes Differential Diagnosis Altered mental status/psychosis due to infection/environmental exposure/ metabolic abnormality, polypharmacy, alcohol abuse/intoxication, illicit or prescribed drug abuse, malingering/secondary gain, non-organic psychiatric disease Narrative Course The patient arrives with auditory hallucinations history of K2 abuse and reported suicidal ideation. Valproic acid 23; 500mg PO given here He is medically clear for psychiatric evaluation. Diagnosis Primary Impression: schizophrenic disorder chronic paranoid type Additional Impression: noncompliance medication Paco Mason MD Mar 29, 2017 12:07
[2017-03-29] MEDS ORDERED: VALPROIC ACID 250 MG CAP PO ONE (13:15)
[2017-03-29 19:13] VITALS: BP 123/66; PULSE 87; RESP 16
[2017-03-29 21:15] VITALS: BP 128/72; PULSE 80; RESP 16; TEMP 97.7; O2SAT 100
[2017-03-29] MEDS ORDERED: MAGNESIUM HYDROXIDE SUSP 30 ML CUP PO PRN (21:30)
[2017-03-29] MEDS ORDERED: ALUMINUM/MAGNESIUM/SIMETH 30 ML CUP PO PRN (21:30)
[2017-03-29] MEDS ORDERED: ACETAMINOPHEN 325 MG TAB PO PRN (21:30)
[2017-03-29] MEDS: diphenhydrAMINE HCL 50 MG CAP PO PRN (22:36)
[2017-03-30] MEDS: LORazepam 2 MG/ML VIAL IM PRN (01:28)
[2017-03-30 05:44] VITALS: BP 135/96; PULSE 88; RESP 16; TEMP 98.5; O2SAT 97
[2017-03-30] MEDS: DIVALPROEX SODIUM DELAYED RELEASE 250 MG TAB PO SCH ×2 (08:58→21:58)
[2017-03-30] MEDS: NICOTINE 21 MG/24 HR PATCH T-DERMAL SCH (08:59)
[2017-03-30] MEDS ORDERED: cloZAPine 25 MG TAB PO SCH (09:00)
--- NOTE | 2017-03-30 14:35 | HHI.HP ---
Provisional Diagnosis Admission Date Mar 29, 2017 at 20:10 [place] I. Schizophrenia, K2 use disorder Certification of Person's Competence To Provide Express and Informed Consent I have personally examined Divine Gay , a person being served at [facility] on, Mar 30, 2017 14:27. Express and informed consent means consent voluntarily given in writing, by a competent person, after sufficient explanation and disclosure of the subject matter involved to enable the person to make a knowing and willful decision without any element of force, fraud, deceit, duress, or other form of constraint or coercion. This person is 18 years of age or older, is not now known to be incompetent to consent to treatment with a guardian advocate, and does not have a health care surrogate or proxy currently making medical treatment decisions. I have found this person to be one of the following: [] Competent to provide express and informed consent, as defined above, for voluntary admission to this facility and is competent to provide express and informed consent for treatment. He/she has the consistent capacity to make well reasoned, willful, and knowing decisions concerning his or her medical or mental health treatment. The person fully and consistently understands the purpose of the admission for examination/placement and is fully capable of personally exercising all rights assured under [place] Incompetent to provide express and informed consent to voluntary admission, and this is incompetent to provide express and informed consent to treatment. The person must be transferred to involuntary status and a petition for a guardian advocate filed with the Circuit Court. [x] Refusing to provide express and informed consent to voluntary admission but is competent to provide express and informed consent for treatment. The person must be discharged or transferred to involuntary status. Form shall be completed within 24 hours of a person's arrival at the receiving facility and filed in the clinical record of each person: 1. Admitted on a voluntary basis 2. Permitted to provide express and informed consent to his/her own treatment 3. Allowed to transfer from involuntary to voluntary status 4. Prior to permitting a person to consent to his or her own treatment after having been previously found incompetent to consent to treatment. History of Present Illness Capacity: Has Capacity HPI The patient is a 22-year-old man, domicile with his mother, unemployed, single, with psychiatric history of schizophrenia paranoid type, multiple psychiatric hospitalizations, last hospitalization was here at [facility] last month , patient is supposed to be in Clozaril 400 mg at bedtime and 200 mg a.m., Depakote 500 g twice a day. He does not have any medical history, brought to ER due to suicidal ideation statements, "maybe I should just . " Auditory hallucinations reported. Patient himself. Patient evidently smoked K2. He has no medical complaint. Location neuropsychiatric. Severity constant. Records show previous compliance with valproic acid. Patient states he does not take it today. Lyn leves are 22. On psychiatric evaluation today patient is oppositional, not answering my questions, he keeps rambling disorganized, internally preoccupied. As per nursing report, last night patient was aggressive, internally preoccupied stating that Demons were attacking him. He was difficult to redirect verbally, has to be giving ETO to calm him down. Review of Systems Except as stated in HPI: all other systems reviewed are Neg Substance Abuse History Drugs/Alcohol past 12 months Patient reports the use of K2 Past Family Social History Coded Allergies: aspirin (Unverified Allergy, Severe, TACHYCARDIA, 01/28/17) Active Scripts Divalproex DR (Divalproex DR) 250 Mg Tabdr, 500 MG PO Q12HR for health for 60 Days, TAB Prov:Bear Lopez MD 03/04/17 Clozapine (Clozapine) 200 Mg Tab, 400 MG PO DAILY for Schizophrenia for 30 Days , #60 TAB 0 Refills Prov:Bear Lopez MD 03/04/17 Clozapine (Clozapine) 200 Mg Tab, 200 MG PO DAILY for Schizophrenia for 30 Days , #30 TAB 0 Refills Prov:Bear Lopez MD 03/04/17 Current Medications Medications (Trade) Dose Ordered Sig/Harvey Route Start Time Stop Time Status Last Admin (Ativan) 1 mg Q6H PRN PO 03/29/17 21:30 (Ativan Inj) 1 mg Q6H PRN IM 03/29/17 21:30 03/30/17 01:28 (Benadryl) 50 mg Q6H PRN PO 03/29/17 21:30 03/29/17 22:36 (Benadryl Inj) 50 mg Q6H PRN IM 03/29/17 21:30 (Desyrel) 50 mg HS PRN PO 03/29/17 21:30 (Tylenol) 650 mg Q4H PRN PO 03/29/17 21:30 (Milk Of Magnesia Liq) 30 ml DAILY PRN PO 03/29/17 21:30 (Mag-Al Plus Susp Liq) 30 ml Q6H PRN PO 03/29/17 21:30 (Habitrol 21 Mg Patch.24 Hr) 1 patch DAILY T-DERMAL 03/30/17 09:00 03/30/17 08:59 Miscellaneous Information 1 HS T-DERMAL 03/30/17 21:00 (Depakote Dr) 250 mg BID PO 03/30/17 09:00 03/30/17 08:58 (Clozaril) 25 mg BID PO 03/30/17 21:00 UNV Social History Patient was born and raised in [place], he lives with his mother and [facility], he is unemployed, single Physical Exam Vital Signs Vital Signs Date Time Temp Pulse Resp B/P (MAP) Pulse Ox O2 Delivery O2 Flow Rate FiO2 03/30/17 05:44 98.5 88 16 135/96 (109) 97 Mental Status Examination Appearance: Dirty, Disheveled, Malodorous Consciousness: Alert Orientation: Person, Place Speech: Hesitant Language: Adequate Fund of Knowledge: Poor Attention and Concentration: Adequate Memory: Unremarkable Mood: Angry Affect: Irritable Thought Process & Associations: Goal directed Thought Content: Thought blocking Suicidal Ideation: No Suicidal Plan: No Suicidal Intention: No Homicidal Ideation: No Homicidal Plan: No Homicidal Intention: No Insight: Poor Judgment: Poor Assessment & Plan Problem List: (1) Schizophrenia, paranoid type ICD Codes: F20.0 - Paranoid schizophrenia Status: Acute Assessment & Plan: On psychiatric evaluation today patient seems to be disorganized, refusing to cooperate, selectively mute, but definitely internally stimulated, rambling. His mother reported that he has been disorganized, not sleeping at all, talking to himself since, verbally aggressive , in the context of noncompliance with medications and K2 use. Patient will be admitted in psychiatry for stabilization and safety. Will start Clozaril 25 mg bid and will titrate rapidly as patient can tolerate to his outpatient stable dose. We will restart Depakote 500 mg twice a day. Monitor closely mood and behavior. We'll order Thorazine 50 mg IM every 8 hours when necessary aggressive behavior and agitation. Will order CBC, CMP, TSH, Depakote and Clozaril levels also an EKG. Patient will be admitted in the 2700 unit. color drum worker intervention for psychosocial assessment and coordination of safe discharge planning. We'll communicate with outpatient psychiatrist to discuss the benefit of Depot medications. Assessment & Plan Estimated LOS: Bear Lopez MD Mar 30, 2017 14:35
--- NOTE | 2017-03-30 15:05 | HHI.PYPN ---
Subjective Remarks Patient was seen and case discussed with nursing. Patient has not needed any ETO's or restraints. He has not had any outbursts. He remains with an angry, irritable affect and bizarre fixed delusions concerning various circumstances. Patient is focused on his company and to watch his [employer] videos. We watched the videos and patient is showing off his gun collection. Mental Status Examination Appearance: Dirty, Disheveled, Malodorous Consciousness: Alert Orientation: Person, Place Speech: Hesitant Language: Adequate Fund of Knowledge: Poor Attention and Concentration: Adequate Memory: Unremarkable Mood: Angry Affect: Irritable Thought Process & Associations: Disorganized Thought Content: Bizarre thinking, Thought blocking Suicidal Ideation: No Suicidal Plan: No Suicidal Intention: No Homicidal Ideation: No Homicidal Plan: No Homicidal Intention: No Insight: Poor Judgment: Poor Results Vitals/IOs Vital Signs Date Time Temp Pulse Resp B/P (MAP) Pulse Ox O2 Delivery O2 Flow Rate FiO2 03/30/17 05:44 98.5 88 16 135/96 (109) 97 Assessment & Plan Problem List: (1) Schizophrenia, paranoid type ICD Codes: F20.0 - Paranoid schizophrenia Status: Acute Assessment & Plan Continue to investigate that all firearms have been removed and patient has no access next week Justification for Cont. Inpt. Patient will decompensate in a less restrictive setting Hema Pearl DO Mar 30, 2017 15:05
[2017-03-30 17:12] VITALS: BP 130/89; PULSE 87; RESP 17; TEMP 98.2; O2SAT 97
[2017-03-30] MEDS ORDERED: LORazepam 2 MG/ML VIAL IM ONE (21:00)
[2017-03-30] MEDS: REMOVE OLD NICOTINE PATCH T-DERMAL SCH (21:00)
--- NOTE | 2017-03-30 21:37 | RADRPT ---
EXAM DATE/TIME: 03/30/2017 21:02 [facility] COMPARISON: No previous studies available for comparison. INDICATIONS : Pain in right hand, patient states no known injury. MEDICAL HISTORY : None. SURGICAL HISTORY : None. ENCOUNTER: Initial ACUITY: 1 day PAIN SCORE: 0/10 LOCATION: Right hand FINDINGS: Two view examination of the right hand demonstrates soft tissue swelling across the dorsum of the campo d overlying the metacarpophalangeal joints. Bony structures are intact without evidence of fracture or dislocation. There is no significant arthr opathy. CONCLUSION: Soft tissue swelling without evidence of acute bony abnormality or significant arthropathy. Delfino Das MD on March 30, 2017 at 21:35 Board Certified Radiologist. This report was verified electronically.
[2017-03-30] MEDS: cloZAPine 25 MG TAB PO SCH (21:58)
[2017-03-31 05:55] VITALS: BP 137/63; PULSE 72; RESP 16; TEMP 97.8; O2SAT 95
[2017-03-31] MEDS: cloZAPine 25 MG TAB PO SCH (08:58)
[2017-03-31] MEDS: DIVALPROEX SODIUM DELAYED RELEASE 250 MG TAB PO SCH ×2 (08:58→20:14)
[2017-03-31] MEDS: NICOTINE 21 MG/24 HR PATCH T-DERMAL SCH (09:00)
[2017-03-31 10:23] LABS: HEMATOCRIT 41.6 % (39.0-51.0); MEAN CELL VOLUME 79.9 FL (80.0-100.0); MEAN CORPUSCULAR HEMOGLOBIN 26.6 PG (27.0-34.0); MEAN CORPUSCULAR HGB CONC 33.3 % (32.0-36.0); PLATELET COUNT 222 TH/MM3 (150-450); RED BLOOD COUNT 5.21 MIL/MM3 (4.50-5.90); RED CELL DISTRIBUTION WIDTH 13.6 % (11.6-17.2); REVIEW FLAG FINAL
[2017-03-31 10:56] LABS: ANION GAP 8 MEQ/L (5-15); AST (GOT) 25 U/L (15-37); BICARBONATE 25.2 MEQ/L (21.0-32.0); BLOOD UREA NITROGEN 7 MG/DL (7-18); CHLORIDE 107 MEQ/L (98-107); GLOMERULAR FILTRATION RATE 143 ML/MIN (>89); POTASSIUM 3.7 MEQ/L (3.5-5.1); SODIUM (NA) 140 MEQ/L (136-145)
[2017-03-31 10:57] LABS: ALT (GPT) 18 U/L (12-78)
[2017-03-31 10:59] LABS: ALKALINE PHOSPHATASE 71 U/L (45-117); HDL CHOLESTEROL 46.8 MG/DL (40.0-60.0); LDL CHOLESTEROL 66 MG/DL (0-99); TOTAL BILIRUBIN ADULT 0.5 MG/DL (0.2-1.0)
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
[2017-03-31 15:13] LABS: HEMOGLOBIN A1a 1.2 %; HEMOGLOBIN A1b 0.9 %; HEMOGLOBIN Ao 86.1 %; HEMOGLOBIN F 0.8 %; HEMOGLOBIN LA1C 1.7 %; HEMOGLOBIN P3 3.3 %
[2017-03-31] MEDS ORDERED: HALOPERIDOL LACTATE 5 MG/ML AMP IM PRN (17:15)
[2017-03-31 18:00] VITALS: BP 121/56; PULSE 108; RESP 20; TEMP 98; O2SAT 100
[2017-03-31 19:25] LABS: AUTOMATED NEUTROPHIL # 7.1 TH/MM3 (1.8-7.7); BASOPHIL # 0.1 TH/MM3 (0-0.2); BASOPHIL % 0.5 % (0.0-2.0); EOSINOPHIL # 0.2 TH/MM3 (0-0.4); EOSINOPHIL % 1.9 % (0.0-4.0); HEMATOCRIT 40.5 % (39.0-51.0); HEMO FLAGS DIFF FINAL; LYMPH % 20.2 % (9.0-44.0); LYMPHOCYTE # 2.1 TH/MM3 (1.0-4.8); MEAN CELL VOLUME 80.5 FL (80.0-100.0); MEAN CORPUSCULAR HEMOGLOBIN 26.7 PG (27.0-34.0); MEAN CORPUSCULAR HGB CONC 33.2 % (32.0-36.0); MONO % 9.2 % (0.0-8.0); NEUT % 68.2 % (16.0-70.0); PLATELET COUNT 201 TH/MM3 (150-450); RED BLOOD COUNT 5.03 MIL/MM3 (4.50-5.90); RED CELL DISTRIBUTION WIDTH 13.3 % (11.6-17.2); WHITE BLOOD COUNT 10.4 TH/MM3 (4.0-11.0)
[2017-03-31] MEDS: HALOPERIDOL 5 MG TAB PO SCH (20:14)
[2017-03-31] MEDS: REMOVE OLD NICOTINE PATCH T-DERMAL SCH (20:28)
[2017-03-31] MEDS ORDERED: cloZAPine 25 MG TAB PO SCH (21:00)
--- NOTE | 2017-03-31 22:57 | EKG ---
Date Performed: 03/30/2017 Time Performed: 15:06:20 PTAGE: 22 years EKG: Sinus rhythm NORMAL ECG PREVIOUS TRACING : 01/27/2017 13.16 Compared to prior tracing no significant change DOCTOR: Deborah Murillo Interpretating Date/Time 03/31/2017 22:52:42
[2017-04-01] MEDS: LORazepam 1 MG TAB PO PRN ×2 (01:50→23:21)
[2017-04-01] MEDS: diphenhydrAMINE HCL 50 MG CAP PO PRN ×2 (01:50→23:21)
[2017-04-01 06:02] VITALS: BP 125/71; PULSE 87; RESP 18; TEMP 98.1; O2SAT 98
[2017-04-01] MEDS: HALOPERIDOL 5 MG TAB PO SCH ×2 (08:30→20:50)
[2017-04-01] MEDS: NICOTINE 21 MG/24 HR PATCH T-DERMAL SCH (08:30)
[2017-04-01] MEDS: DIVALPROEX SODIUM DELAYED RELEASE 250 MG TAB PO SCH ×2 (08:30→20:50)
[2017-04-01 15:52] VITALS: BP 150/89; PULSE 91; RESP 18; TEMP 97.9; O2SAT 99
--- NOTE | 2017-04-01 16:42 | HHI.PYPN ---
Subjective Remarks Patient seen and examined with nurse. Chart reviewed. Case discussed in treatment team. Per nursing staff, the patient has been no behavioral problem. Nurse observes that the patient seems improved with Haldol and notes that he asked to shower this morning. On my examination today, the patient does indeed seem more organized in his thought process. He is better able to convey his mental status. He says that he is experiencing visual hallucinations of "demons " with some associated vague auditory hallucinations. He denies any command auditory hallucinations to hurt self or others. Denies any suicidal or homicidal ideations. Says that hallucinations are quite distracting and make it difficult for him to read, one of his favored avocations. Affect fairly flat. Denies side effects from medications. No physical complaints. I did place a call to patient's mother to try to complete our conversation from yesterday; this went directly to [employer] and I left a message requesting a call back. Review of Systems ROS Limitations: Psychotic Except as stated in HPI: all other systems reviewed are Neg Mental Status Examination Appearance: Other (grooming somewhat improved today) Consciousness: Alert Orientation: Person, Place (at least) Motor Activity: Other (no hand tremor, no cogwheeling, no dystonias, no dyskinesias, no other motoric abnormalities noted) Speech: Slow Language: Adequate Fund of Knowledge: Poor Attention and Concentration: Easily Distracted Mood: Other (no reported issues with mood) Affect: Flat (remains quite flat) Thought Process & Associations: Other (more organized today) Thought Content: Thought blocking (less) Hallucination Type: Auditory, Visual Delusion Type: None (no delusions elicited today) Suicidal Ideation: No Suicidal Plan: No Suicidal Intention: No Homicidal Ideation: No Homicidal Plan: No Homicidal Intention: No Insight: Poor Judgment: Poor Results Labs Test 03/31/17 19:02 White Blood Count 10.4 TH/MM3 Red Blood Count 5.03 MIL/MM3 Hemoglobin 13.5 GM/DL Hematocrit 40.5 % Mean Corpuscular Volume 80.5 FL Mean Corpuscular Hemoglobin 26.7 PG Mean Corpuscular Hemoglobin Concent 33.2 % Red Cell Distribution Width 13.3 % Platelet Count 201 TH/MM3 Mean Platelet Volume 8.6 FL Neutrophils (%) (Auto) 68.2 % Lymphocytes (%) (Auto) 20.2 % Monocytes (%) (Auto) 9.2 % Eosinophils (%) (Auto) 1.9 % Basophils (%) (Auto) 0.5 % Neutrophils # (Auto) 7.1 TH/MM3 Lymphocytes # (Auto) 2.1 TH/MM3 Monocytes # (Auto) 1.0 TH/MM3 Eosinophils # (Auto) 0.2 TH/MM3 Basophils # (Auto) 0.1 TH/MM3 CBC Comment DIFF FINAL Differential Comment Labs reviewed. Clozapine level pending, although we have discontinued this medication. Vitals/IOs Vital Signs Date Time Temp Pulse Resp B/P (MAP) Pulse Ox O2 Delivery O2 Flow Rate FiO2 04/01/17 15:52 97.9 91 18 150/89 (109) 99 Assessment & Plan Problem List: (1) Schizophrenia, paranoid type ICD Codes: F20.0 - Paranoid schizophrenia Status: Acute Assessment & Plan Possible early favorable response to Haldol, although the patient does remain severely decompensated with respect to his psychosis. Titrate Haldol 7.5 mg twice daily to target psychosis. To consider long-acting injectable antipsychotic. Continue Depakote as ordered. Plan to check a Depakote level later in the week. Continue to monitor on the high acuity unit. Continue other medications and care as ordered. Justification for Cont. Inpt. Med changes. Impairment in reality construction. High risk for decompensation in less restrictive environment. Discharge Planning Pending psychiatric stabilization. Estimated length of stay unchanged from my initial consultation. Case discussed with counselor. Request HC Surrog/Guard Advoc?: Yes Viktor Maria MD Apr 01, 2017 16:42
[2017-04-01] MEDS ORDERED: HALOPERIDOL LACTATE 5 MG/ML AMP IM PRN (16:45)
[2017-04-01] MEDS: REMOVE OLD NICOTINE PATCH T-DERMAL SCH (20:50)
[2017-04-02 06:05] VITALS: BP 111/55; PULSE 88; RESP 16; TEMP 98; O2SAT 100
[2017-04-02] MEDS: NICOTINE 21 MG/24 HR PATCH T-DERMAL SCH (08:24)
[2017-04-02] MEDS: HALOPERIDOL 5 MG TAB PO SCH ×2 (08:24→20:42)
[2017-04-02] MEDS: DIVALPROEX SODIUM DELAYED RELEASE 250 MG TAB PO SCH ×2 (08:24→20:42)
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
[2017-04-02 17:00] VITALS: BP 120/63; PULSE 83; RESP 18; TEMP 98.1; O2SAT 99
[2017-04-02] MEDS: LORazepam 2 MG/ML VIAL IM PRN (19:03)
[2017-04-02] MEDS: diphenhydrAMINE HCL 50 MG/ML VIAL IM PRN (19:19)
[2017-04-02] MEDS: REMOVE OLD NICOTINE PATCH T-DERMAL SCH (20:42)
[2017-04-03 01:29] LABS: CLOZAPINE/NORCLOZAPINE TOTAL Unable to calculate ng/mL (>450); NORCLOZAPINE <25 ng/mL
[2017-04-03 05:57] VITALS: BP 107/56; PULSE 86; RESP 16; TEMP 97.9; O2SAT 97
[2017-04-03] MEDS: HALOPERIDOL 5 MG TAB PO SCH ×2 (08:41→20:40)
[2017-04-03] MEDS: DIVALPROEX SODIUM DELAYED RELEASE 250 MG TAB PO SCH ×2 (08:41→20:40)
[2017-04-03] MEDS: NICOTINE 21 MG/24 HR PATCH T-DERMAL SCH (08:43)
[2017-04-03] MEDS ORDERED: HALOPERIDOL DECANOATE 50 MG/ML VIAL IM SCH (12:00)
--- NOTE | 2017-04-03 13:21 | HHI.PYPN ---
Subjective Remarks Patient seen and examined. Chart reviewed. Patient refused x-ray of the facial bones yesterday. Case discussed with nursing staff. Patient had an episode of yelling out yesterday evening and received Thorazine IM. On my examination today, the patient is calm, perhaps a little sleepier than usual as a consequence of the Thorazine. He is mildly irritable. He endorses ongoing hallucinations of demons. No SI or HI voiced. Denies side effects from medications. Continues to decline x-ray of the facial bones. Denies any ongoing pain or discomfort in this area. No other physical complaints. Review of Systems ROS Limitations: Psychotic, Poor Historian Except as stated in HPI: all other systems reviewed are Neg Mental Status Examination Appearance: Disheveled (mild) Consciousness: Alert Orientation: Person (at least) Motor Activity: Other (no motoric abnormalities noted) Speech: Slow Language: Adequate Fund of Knowledge: Poor Attention and Concentration: Other (fair) Mood: Other (mildly dysphoric) Affect: Irritable (mild) Thought Process & Associations: Other (remains more organized versus admission , although not much changed yesterday to today) Thought Content: Thought blocking (mild) Hallucination Type: Visual (as above) Delusion Type: None Suicidal Ideation: No Suicidal Plan: No Suicidal Intention: No Homicidal Ideation: No Homicidal Plan: No Homicidal Intention: No Insight: Poor Judgment: Poor Results Labs Test 04/03/17 10:25 Ammonia 72 MCMOL/L Valproic Acid (Depakene) Level 35 MCG/ML labs reviewed. Depakote level subtherapeutic. Ammonia level elevated. No signs of hyperammonemic encephalopathy. Vitals/IOs Vital Signs Date Time Temp Pulse Resp B/P (MAP) Pulse Ox O2 Delivery O2 Flow Rate FiO2 04/03/17 05:57 97.9 86 16 107/56 (73) 97 Assessment & Plan Problem List: (1) Schizophrenia, paranoid type ICD Codes: F20.0 - Paranoid schizophrenia Status: Acute Assessment & Plan Initiate Haldol decanoate 100 mg IM. Continue oral Haldol to supplement Haldol decanoate. To consider administering additional Haldol decanoate to bring the total dose to 10-20 times the total oral daily dose. Titrate Depakote to 500 mg twice daily to manage irritability. Add lactulose for hyperammonemia. Check an interval ammonia level over the weekend to ensure that this is not significantly worsened by titration of Depakote. Check a follow-up Depakote and ammonia level Friday morning. Continue to monitor on the high acuity unit. Continue other medications and care as ordered. Patient's case was presented to the [place] act court, and he was retained on the unit by the court. Justification for Cont. Inpt. Medication changes. Impairment in reality construction. High risk for decompensation in less restrictive environment. Discharge Planning Pending psychiatric stabilization. Request HC Surrog/Guard Advoc?: Yes Viktor Maria MD Apr 03, 2017 13:21
[2017-04-03] MEDS: LORazepam 1 MG TAB PO PRN (17:54)
[2017-04-03 18:06] VITALS: BP 114/70; PULSE 100; RESP 18; TEMP 97.6; O2SAT 100
[2017-04-03] MEDS: diphenhydrAMINE HCL 50 MG/ML VIAL IM PRN (19:54)
[2017-04-03] MEDS: REMOVE OLD NICOTINE PATCH T-DERMAL SCH (20:40)
[2017-04-03] MEDS: LACTULOSE SYRUP 20 GM/30 ML CUP PO SCH (20:40)
[2017-04-03] MEDS: LORazepam 2 MG/ML VIAL IM PRN (21:22)
[2017-04-04 05:50] VITALS: BP 105/55; PULSE 63; RESP 18; TEMP 98.2; O2SAT 98
[2017-04-04] MEDS: HALOPERIDOL 5 MG TAB PO SCH ×2 (08:36→20:17)
[2017-04-04] MEDS: DIVALPROEX SODIUM DELAYED RELEASE 250 MG TAB PO SCH ×2 (08:37→20:17)
[2017-04-04] MEDS: LACTULOSE SYRUP 20 GM/30 ML CUP PO SCH ×2 (08:39→20:16)
[2017-04-04] MEDS: NICOTINE 21 MG/24 HR PATCH T-DERMAL SCH (09:00)
--- NOTE | 2017-04-04 10:03 | HHI.PYPN ---
Subjective Remarks Patient seen and examined with nurse. Chart reviewed. Case discussed with nursing staff who reports that the patient refused his lactulose this morning and was screaming and yelling last night and received Thorazine p.r.n.. On my examination today, the patient is calm, if a little bit sedated, presumably because of the medications that he received last evening. He is oriented to person, place (and he is even able to say that he is in a [place] act receiving facility), and date/year although he does give the month of February. He remains internally stimulated. Denies suicidal or homicidal ideation. No side effects from scheduled medications. I did provide education regarding the purpose of the lactulose and the need to be adherent with all medications. No physical complaints. Review of Systems ROS Limitations: Psychotic, Poor Historian Except as stated in HPI: all other systems reviewed are Neg Mental Status Examination Appearance: Disheveled Consciousness: Alert Orientation: Person, Place, Date/Time (date/year) Motor Activity: Other (no abnormal motor movements noted) Speech: Slow Language: Adequate Fund of Knowledge: Poor Attention and Concentration: Other (fair) Mood: Other (remains a little dysphoric) Affect: Flat Thought Process & Associations: Linear Thought Content: Thought blocking (mild) Hallucination Type: Visual (demons) Delusion Type: None Suicidal Ideation: No Homicidal Ideation: No Insight: Poor Judgment: Poor Results Labs Test 04/03/17 10:25 Ammonia 72 MCMOL/L Valproic Acid (Depakene) Level 35 MCG/ML Labs reviewed Vitals/IOs Vital Signs Date Time Temp Pulse Resp B/P (MAP) Pulse Ox O2 Delivery O2 Flow Rate FiO2 04/04/17 05:50 98.2 63 18 105/55 (72) 98 Assessment & Plan Problem List: (1) Schizophrenia, paranoid type ICD Codes: F20.0 - Paranoid schizophrenia Status: Acute Assessment & Plan Titrate Haldol to 10 mg twice daily to target agitation and ongoing psychotic symptoms. To consider additional Haldol Decanoate. Continue Depakote and lactulose as ordered. Check an ammonia level tomorrow morning and check and updated ammonia level and Depakote level on Friday. Continue to monitor on the high acuity unit. Continue other medications and care as ordered. Justification for Cont. Inpt. Impairment in reality construction. Medication changes in process. High risk for decompensation in less restrictive environment. Discharge Planning Pending psychiatric stabilization. It is my suspicion that the patient does have some chronic psychotic symptoms, but I am hopeful that we will be able to attenuate these prior to discharge, presently anticipated for sometime next week. Request HC Surrog/Guard Advoc?: Yes Viktor Maria MD Apr 04, 2017 10:03
[2017-04-04] MEDS ORDERED: HALOPERIDOL LACTATE 5 MG/ML AMP IM PRN (14:45)
[2017-04-04 18:02] VITALS: BP 118/64; PULSE 99; RESP 19; TEMP 98.7; O2SAT 98
[2017-04-04] MEDS: REMOVE OLD NICOTINE PATCH T-DERMAL SCH (20:20)
[2017-04-05 05:38] VITALS: BP 121/81; PULSE 93; RESP 18; TEMP 97.9; O2SAT 99
[2017-04-05] MEDS: DIVALPROEX SODIUM DELAYED RELEASE 250 MG TAB PO SCH ×2 (09:09→21:09)
[2017-04-05] MEDS: HALOPERIDOL 5 MG TAB PO SCH ×2 (09:10→21:09)
[2017-04-05] MEDS: NICOTINE 21 MG/24 HR PATCH T-DERMAL SCH (09:10)
[2017-04-05] MEDS: LACTULOSE SYRUP 20 GM/30 ML CUP PO SCH ×2 (09:10→21:09)
--- NOTE | 2017-04-05 13:44 | HHI.PYPN ---
Subjective Remarks Pt seen and discussed with staff. Yesterday, pt c/o of significant internal stimulation and today appears to be experiencing hallucinations. He states that a "bee sting is trying to eat me dog!"He is compliant with medications but mostly stays to his room. No behavioral problems. Mental Status Examination Appearance: Disheveled Consciousness: Alert Orientation: Person, Place, Date/Time (date/year) Motor Activity: Other (no abnormal motor movements noted) Speech: Slow Language: Adequate Fund of Knowledge: Poor Attention and Concentration: Other (fair) Mood: Other (remains a little dysphoric) Affect: Flat Thought Process & Associations: Linear Thought Content: Bizarre thinking, Thought blocking (mild) Hallucination Type: Visual (demons) Delusion Type: Bizarre Suicidal Ideation: No Suicidal Plan: No Suicidal Intention: No Homicidal Ideation: No Homicidal Plan: No Homicidal Intention: No Insight: Poor Judgment: Poor Results Labs Test 04/05/17 07:49 Ammonia 18 MCMOL/L Vitals/IOs Vital Signs Date Time Temp Pulse Resp B/P (MAP) Pulse Ox O2 Delivery O2 Flow Rate FiO2 04/05/17 05:38 97.9 93 18 121/81 (94) 99 Assessment & Plan Problem List: (1) Schizophrenia, paranoid type ICD Codes: F20.0 - Paranoid schizophrenia Status: Acute Assessment & Plan continue current tx plan. Estimated LOS: days Justification for Cont. Inpt. impairments in reality testing Request HC Surrog/Guard Advoc?: Yes Delfina Roper MD Apr 05, 2017 13:43
[2017-04-05] MEDS: LORazepam 1 MG TAB PO PRN (16:18)
[2017-04-05 17:27] VITALS: BP 122/85; PULSE 91; RESP 18; TEMP 98.1; O2SAT 100
[2017-04-05] MEDS: REMOVE OLD NICOTINE PATCH T-DERMAL SCH (21:00)
[2017-04-05] MEDS ORDERED: FLUTICASONE PROPIONATE 44 MCG/ACT 10.6 GM INHALER INH PRN (21:00)
[2017-04-05] MEDS: diphenhydrAMINE HCL 50 MG CAP PO PRN (21:09)
[2017-04-05] MEDS: traZODone HCL 50 MG TAB PO PRN (21:09)
[2017-04-06 05:11] VITALS: BP 90/54; PULSE 106; RESP 18; TEMP 98.1; O2SAT 97
[2017-04-06] MEDS: LACTULOSE SYRUP 20 GM/30 ML CUP PO SCH ×2 (08:17→21:00)
[2017-04-06] MEDS: HALOPERIDOL 5 MG TAB PO SCH ×2 (08:17→21:00)
[2017-04-06] MEDS: DIVALPROEX SODIUM DELAYED RELEASE 250 MG TAB PO SCH ×2 (08:17→21:00)
[2017-04-06] MEDS: NICOTINE 21 MG/24 HR PATCH T-DERMAL SCH (08:18)
--- NOTE | 2017-04-06 13:44 | HHI.PYPN ---
Subjective Remarks Pt seen and discussed with staff. He remains internally preoccupied with bizarre behavior. He is compliant with medications. No aggression or behavioral problems today Mental Status Examination Appearance: Disheveled Consciousness: Alert Orientation: Person, Place, Date/Time (date/year) Motor Activity: Other (no abnormal motor movements noted) Speech: Slow Language: Adequate Fund of Knowledge: Poor Attention and Concentration: Other (fair) Mood: Other (remains a little dysphoric) Affect: Flat Thought Process & Associations: Linear Thought Content: Bizarre thinking, Thought blocking (mild) Hallucination Type: Visual (demons) Delusion Type: Bizarre Suicidal Ideation: No Suicidal Plan: No Suicidal Intention: No Homicidal Ideation: No Homicidal Plan: No Homicidal Intention: No Insight: Poor Judgment: Poor Results Vitals/IOs Vital Signs Date Time Temp Pulse Resp B/P (MAP) Pulse Ox O2 Delivery O2 Flow Rate FiO2 04/06/17 05:11 98.1 106 18 90/54 (66) 97 Assessment & Plan Problem List: (1) Schizophrenia, paranoid type ICD Codes: F20.0 - Paranoid schizophrenia Status: Acute Assessment & Plan Continue current tx plan Estimated LOS: days Justification for Cont. Inpt. impairments in reality testing and self care Request HC Surrog/Guard Advoc?: Yes Delfina Roper MD Apr 06, 2017 13:44
[2017-04-06] MEDS: LORazepam 1 MG TAB PO PRN (14:49)
[2017-04-06 17:04] VITALS: BP 119/71; PULSE 91; RESP 17; TEMP 98.3; O2SAT 99
[2017-04-06] MEDS: REMOVE OLD NICOTINE PATCH T-DERMAL SCH (21:00)
[2017-04-07 05:56] VITALS: BP 110/58; PULSE 73; RESP 15; TEMP 97.9
[2017-04-07] MEDS: HALOPERIDOL 5 MG TAB PO SCH ×2 (08:12→20:20)
[2017-04-07] MEDS: BENZTROPINE MESYLATE 1 MG TAB PO SCH ×2 (08:12→20:20)
[2017-04-07] MEDS: DIVALPROEX SODIUM DELAYED RELEASE 250 MG TAB PO SCH ×2 (08:12→20:21)
[2017-04-07] MEDS: LACTULOSE SYRUP 20 GM/30 ML CUP PO SCH ×2 (08:13→17:50)
[2017-04-07] MEDS: NICOTINE 21 MG/24 HR PATCH T-DERMAL SCH (08:13)
--- NOTE | 2017-04-07 14:07 | HHI.PYPN ---
Subjective Remarks Patient seen and examined with nurse. Chart reviewed. Case discussed with nursing staff. Patient noted to be shadowboxing, responding to internal stimuli. He is redirectable per nursing staff. On my examination today, patient reports of his hallucinations "they're ok." He remains somewhat internally stimulated. He denies suicidal or homicidal ideation. Denies side effects from medications but display some mild resting tremor and some cogwheeling. I have added Cogentin. No physical complaints. Review of Systems ROS Limitations: Psychotic, Poor Historian Except as stated in HPI: all other systems reviewed are Neg Mental Status Examination Appearance: Disheveled Consciousness: Alert Orientation: Person, Place Motor Activity: Other (resting tremor noted. Cogwheeling noted. No dystonias or dyskinesias. No other motoric abnormalities noted.) Speech: Slow Language: Adequate Fund of Knowledge: Poor Attention and Concentration: Other (fair) Mood: Other (gives thumbs up) Affect: Flat Thought Process & Associations: Other (somewhat slowed) Thought Content: Bizarre thinking Hallucination Type: Auditory (internally preoccupied) Delusion Type: Bizarre Suicidal Ideation: No Suicidal Plan: No Suicidal Intention: No Homicidal Ideation: No Homicidal Plan: No Homicidal Intention: No Insight: Poor Judgment: Poor Results Labs Test 04/07/17 11:00 Ammonia 57 MCMOL/L Valproic Acid (Depakene) Level 59 MCG/ML Labs reviewed. Ammonia level decreased over the weekend but somewhat elevated now. Depakote level within the therapeutic range. Vitals/IOs Vital Signs Date Time Temp Pulse Resp B/P (MAP) Pulse Ox O2 Delivery O2 Flow Rate FiO2 04/07/17 05:56 97.9 73 15 110/58 (75) 04/06/17 17:04 99 Assessment & Plan Problem List: (1) Schizophrenia, paranoid type ICD Codes: F20.0 - Paranoid schizophrenia Status: Acute Assessment & Plan Titrate Haldol to 12.5 mg twice daily to target psychosis. To consider additional Haldol Decanoate. Add Cogentin 1 mg twice daily for EPS. Titrate lactulose for hyperammonemia and plan to check an ammonia level middle of the week. Continue to monitor on the high acuity unit. Continue other medications and care as ordered. Justification for Cont. Inpt. Med changes. Impairment in reality construction. High risk for decompensation in less restrictive environment. Discharge Planning Pending psychiatric stabilization. I have asked the counselor to reach out the patient's mother to ascertain how far the patient remains from his chronic baseline. Request HC Surrog/Guard Advoc?: Yes Viktor Maria MD Apr 07, 2017 14:07
[2017-04-07 17:12] VITALS: BP 118/61; PULSE 85; RESP 16; TEMP 98.5; O2SAT 99
[2017-04-07] MEDS: traZODone HCL 50 MG TAB PO PRN (20:22)
[2017-04-07] MEDS: REMOVE OLD NICOTINE PATCH T-DERMAL SCH (21:00)
[2017-04-07] MEDS: LORazepam 1 MG TAB PO PRN (23:34)
[2017-04-08 05:47] VITALS: BP 103/68; PULSE 70; RESP 16; TEMP 97.8; O2SAT 99
--- NOTE | 2017-04-08 09:08 | HHI.PYPN ---
Subjective Remarks Patient seen and examined. Chart reviewed. Case discussed with nursing staff. On my examination today, the patient denies seeing any demons. When asked about voices he says "they're not so there really." He denies any SI or HI. Affect remains fairly flat. No side effects from medications. No physical complaints. Hopeful for discharge soon. Review of Systems ROS Limitations: Poor Historian Mental Status Examination Appearance: Disheveled Consciousness: Alert Orientation: Person (at least) Motor Activity: Other (tremor considerably reduced. No other motor abnormalities noted.) Speech: Slow Language: Adequate Fund of Knowledge: Poor Attention and Concentration: Other (fair) Mood: Other (fair) Affect: Flat Thought Process & Associations: Other (somewhat slowed) Thought Content: Appropriate Hallucination Type: None (denies AVH) Delusion Type: None Suicidal Ideation: No Suicidal Plan: No Suicidal Intention: No Homicidal Ideation: No Homicidal Plan: No Homicidal Intention: No Insight: Poor Judgment: Poor Results Labs Labs reviewed. Vitals/IOs Vital Signs Date Time Temp Pulse Resp B/P (MAP) Pulse Ox O2 Delivery O2 Flow Rate FiO2 04/08/17 05:47 97.8 70 16 103/68 (80) 99 Assessment & Plan Problem List: (1) Schizophrenia, paranoid type ICD Codes: F20.0 - Paranoid schizophrenia Status: Acute Assessment & Plan Administer additional Haldol decanoate to bring dose to 10 times oral daily dose. Haldol decanoate 150 mg IM today. Continue oral Haldol supplementation. Continue Depakote and lactulose. Continue to monitor on the inpatient unit. Continue other medications and care as ordered. Justification for Cont. Inpt. Med changes Discharge Planning I suspect that the patient is approaching his chronic baseline. I have asked the counselor to reach out the patient's mother to discuss a home-going plan. Request HC Surrog/Guard Advoc?: Yes Viktor Maria MD Apr 08, 2017 09:08
[2017-04-08] MEDS: LACTULOSE SYRUP 20 GM/30 ML CUP PO SCH ×3 (09:18→18:00)
[2017-04-08] MEDS: NICOTINE 21 MG/24 HR PATCH T-DERMAL SCH (09:19)
[2017-04-08] MEDS: HALOPERIDOL 5 MG TAB PO SCH ×2 (09:19→21:09)
[2017-04-08] MEDS: DIVALPROEX SODIUM DELAYED RELEASE 250 MG TAB PO SCH ×2 (09:19→21:10)
[2017-04-08] MEDS: BENZTROPINE MESYLATE 1 MG TAB PO SCH ×2 (09:19→21:10)
--- NOTE | 2017-04-08 13:45 | PD.TTN ---
Patient Problems 1. Discharge planning 2. Medication compliance 3. Knowledge deficit 4. Lack of coping skills Progress Toward Goals Provider Present: Dr. Godwin Durant, Dr. Miky Maria Provider Input: Dr. Maria's treatment team met to discuss treatment plan, discharge planning, and medication. Patient continues to present with internal stimulation. Mother will be called to see if patient is at baseline. Patient is medication complant. Nurse(s) Input: Patient's nurse Emma reports that patient only slept 1 hour last night. Preoccupied, complaint with medication, no behavioral disturbances. Psychiatric Counselors Present: Deb Roberts [facility] Psych Therapist Input: Patient seen on unit. Patient was pacing the hallways. Patient presented childlike, cooperative but constricted, affect flat. Patient denies having auditory hallucinations,however patient was seen talking to himself. Patient once discharged will go home with his mother. Patient is not sleeping well. Group Spec/RT/OT/SERRANO Present: Jose Glover OT Group Spec/RT/OT/SERRANO Input: Patient is not able to tolerate groups Deb Roberts [facility] Apr 08, 2017 13:45
[2017-04-08] MEDS ORDERED: HALOPERIDOL DECANOATE 50 MG/ML VIAL IM SCH (14:15)
[2017-04-08 18:15] VITALS: BP 118/65; PULSE 82; RESP 18; TEMP 97.8; O2SAT 100
[2017-04-08] MEDS: REMOVE OLD NICOTINE PATCH T-DERMAL SCH (21:00)
[2017-04-09] MEDS: ZOLPIDEM TARTRATE 5 MG TAB PO PRN ×2 (00:35→20:20)
[2017-04-09 05:32] VITALS: BP 104/62; PULSE 70; RESP 18; TEMP 97.2; O2SAT 100
[2017-04-09] MEDS: NICOTINE 21 MG/24 HR PATCH T-DERMAL SCH ×2 (09:00→09:53)
[2017-04-09] MEDS: BENZTROPINE MESYLATE 1 MG TAB PO SCH ×2 (09:52→20:20)
[2017-04-09] MEDS: LACTULOSE SYRUP 20 GM/30 ML CUP PO SCH ×3 (09:52→17:15)
[2017-04-09] MEDS: DIVALPROEX SODIUM DELAYED RELEASE 250 MG TAB PO SCH ×2 (09:52→20:20)
[2017-04-09] MEDS: HALOPERIDOL 5 MG TAB PO SCH ×2 (09:52→20:21)
--- NOTE | 2017-04-09 12:04 | HHI.PYPN ---
Subjective Remarks Patient seen and examined. Chart reviewed. Case discussed with nursing staff. No behavioral issues noted overnight. I note that the Haldol decanoate that I ordered yesterday was not administered, and nurse today has confirmed with nurse from yesterday that this was not in fact administered yesterday. On my examination today, the patient reports mood is "okay." He denies any suicidal or homicidal ideation. Denies any audiovisual hallucinations. Denies side effects from medications besides some mild subjective tremor. No physical complaints. Case discussed with counselor who has reached out the patient's mother who reportedly wishes to come to see the patient this evening to evaluate him for return to the home. Review of Systems ROS Limitations: Poor Historian Except as stated in HPI: all other systems reviewed are Neg Mental Status Examination Appearance: Appropriate (fair grooming and hygiene) Consciousness: Alert Orientation: Person, Place Motor Activity: Other (I do not appreciate and objective hand tremor, no cogwheeling, no other abnormal motor movements noted.) Speech: Slow Language: Adequate Fund of Knowledge: Adequate Attention and Concentration: Adequate (fair) Mood: Other ("okay") Affect: Flat Thought Process & Associations: Other (fairly linear but somewhat slowed) Thought Content: Appropriate Hallucination Type: None Delusion Type: None Suicidal Ideation: No Suicidal Plan: No Suicidal Intention: No Homicidal Ideation: No Homicidal Plan: No Homicidal Intention: No Insight: Poor Judgment: Poor Results Labs Labs reviewed. No new labs. Vitals/IOs Vital Signs Date Time Temp Pulse Resp B/P (MAP) Pulse Ox O2 Delivery O2 Flow Rate FiO2 04/09/17 05:32 97.2 70 18 104/62 (76) 100 Assessment & Plan Problem List: (1) Schizophrenia, paranoid type ICD Codes: F20.0 - Paranoid schizophrenia Status: Acute Assessment & Plan Administer Haldol Decanoate 150 mg IM today. Continue other scheduled psychotropics as ordered. I will titrate patient's Cogentin for subjective tremor. Sleep remains difficult for the patient, and I will place an order for the patient's Ambien to be repeated once in 60 minutes if needed. Ammonia level ordered for tomorrow. Continue to monitor on the inpatient unit. Continue other medications and care as ordered. Justification for Cont. Inpt. Med changes Discharge Planning Suspect patient is approaching baseline if he has not they're already. Anticipate discharge tomorrow. Request HC Surrog/Guard Advoc?: Yes Viktor Maria MD Apr 09, 2017 12:04
[2017-04-09] MEDS ORDERED: PILL SPLITTER OTHER PRN (16:15)
[2017-04-09] MEDS ORDERED: HALOPERIDOL DECANOATE 50 MG/ML VIAL IM SCH (16:30)
[2017-04-09 20:00] VITALS: BP 115/55; PULSE 81; RESP 18; TEMP 98.6; O2SAT 98
[2017-04-09] MEDS: REMOVE OLD NICOTINE PATCH T-DERMAL SCH (20:21)
[2017-04-10] MEDS: LORazepam 1 MG TAB PO PRN (00:11)
[2017-04-10 05:50] VITALS: BP 109/55; PULSE 69; RESP 16; TEMP 97.9; O2SAT 99
[2017-04-10] MEDS: BENZTROPINE MESYLATE 1 MG TAB PO SCH (08:12)
[2017-04-10] MEDS: DIVALPROEX SODIUM DELAYED RELEASE 250 MG TAB PO SCH (08:12)
[2017-04-10] MEDS: HALOPERIDOL 5 MG TAB PO SCH (08:12)
[2017-04-10] MEDS: LACTULOSE SYRUP 20 GM/30 ML CUP PO SCH ×2 (08:12→13:13)
[2017-04-10] MEDS: NICOTINE 21 MG/24 HR PATCH T-DERMAL SCH (08:14)
[2017-04-10] MEDS ORDERED: HALO100P IM (11:35)
[2017-04-10] MEDS ORDERED: Lactulose Liq PO (11:35)
[2017-04-10] MEDS ORDERED: DIVA250T PO (11:35)
[2017-04-10] MEDS ORDERED: AMBI5TAB PO (11:35)
[2017-04-10] MEDS ORDERED: Benztropine PO (11:35)
[2017-04-10] MEDS ORDERED: HALO5TAB PO (11:35)
--- NOTE | 2017-04-10 11:35 | HHI.DS ---
Psychiatry Discharge Summary Inpatient Psychiatric care?: Yes Advance Directive: No Reason Not Provided: Pt has none Mental Health AdvanceDirective: No Health Care Proxy: No Admission Admission Date Mar 29, 2017 at 20:10 Admission Diagnosis: (1) Schizophrenia, paranoid type ICD Code: F20.0 - Paranoid schizophrenia Brief History The patient is a 22-year-old man, domicile with his mother, unemployed, single, with psychiatric history of schizophrenia paranoid type, multiple psychiatric hospitalizations, last hospitalization was here at [facility] last month , patient is supposed to be in Clozaril 400 mg at bedtime and 200 mg a.m., Depakote 500 g twice a day. He does not have any medical history, brought to ER due to suicidal ideation statements, "maybe I should just . " Auditory hallucinations reported. Patient himself. Patient evidently smoked K2. He has no medical complaint. Location neuropsychiatric. Severity constant. Records show previous compliance with valproic acid. Patient states he does not take it today. Lyn leves are 23. On psychiatric evaluation today patient is oppositional, not answering my questions, he keeps rambling disorganized, internally preoccupied. As per nursing report, last night patient was aggressive, internally preoccupied stating that Demons were attacking him. He was difficult to redirect verbally, has to be giving ETO to calm him down. Tobacco Use In Past 30 Days: No Tobacco Past 30 Days Alcohol Use: Never Hospital Course Patient was admitted to a locked, inpatient psychiatric unit. Appropriate precautions were in place throughout patient's hospital stay. Patient was seen and examined daily on the unit by psychiatry and also visited by counselor. Psychotropic medications were adjusted. Patient was started on long-acting injectable Haldol Decanoate. Patient tolerated medication changes well without side effects. Patient had improvement in presenting psychiatric symptomatology. There was no evidence of any suicidality or homicidality on the inpatient unit. Patient's behavior improved with the benefit of psychopharmacologic treatment. Counselor Mr. Hamlin reports that he has reached out to patient's mother, and she is reportedly comfortable with accepting the patient home today. On the day of discharge: Patient seen and examined. Chart reviewed. Case discussed with nursing staff. Slept better overnight with Ambien. On my examination today, the patient is eager for discharge home. He denies any suicidal or homicidal ideation, intent or plan on direct questioning and contracts for safety. He denies any audiovisual hallucinations. No delusional material. He denies issues with mood and observes that people often think that he is feeling sad because his affect is quite flat, but in fact his mood is good. We discuss how negative symptoms of schizophrenia and medication side effects can cause affective flattening, although I do suspect that the former are at play in the present case. Patient denies side effects from medications. I have reviewed his discharge psychotropic and other medications with him and discussed the need to follow-up for Haldol Decanoate injection. No physical complaints. Weighing the acute, chronic, and protective factors and based on the available evidence, I product safety specialist to a reasonable degree of medical certainty that the patient is at low imminent risk of harm to self or others from a mental illness as defined under the [place] act and his level of function is adequate for outpatient care. Patient has maximized benefit from this inpatient psychiatric hospital stay will be discharged today into mother's care with psychiatric follow-up as arranged by counselor. Patient is also to follow-up with primary care. Patient to return to psychiatric emergency room for any concerning psychiatric symptoms. Results Blood Pressure 109 / 55 Vital Signs Date Time Temp Pulse Resp B/P (MAP) Pulse Ox O2 Delivery O2 Flow Rate FiO2 04/10/17 05:50 97.9 69 16 109/55 (73) 99 Laboratory Results Test 03/31/17 10:02 04/07/17 11:00 Cholesterol Level 153 MG/DL (120-200) HDL Cholesterol 46.8 MG/DL (40.0-60.0) Hemoglobin A1c 5.5 % (4.3-6.0) LDL Cholesterol 66 MG/DL (0-99) Triglycerides Level 200 MG/DL (42-150) Valproic Acid (Depakene) Level 59 MCG/ML (50-100) Summary of Major Lab Results I did request that a follow up ammonia level be drawn this morning 04/10, but this was not done. I called down to the lab and asked them to send a mainframe software developer to draw the lab and run it stat as the patient is for discharge today and was told this would be done. I left a nursing order not to discharge the patient until I had a chance to review the ammonia level. Unfortunately, the lab was not drawn despite my call and the patient has been discharged and is gone from the unit contrary to my nursing order. I did order for the patient to have a follow up ammonia level drawn on an outpatient basis to monitor patient's hyperammonemia. He had no signs of hyperammonemic encephalopathy at the time of my evaluation this morning. Summary of Procedures None done Imaging Last Impressions Hand X-Ray 03/30/17 0000 Signed Impressions: Service Date/Time: Thursday, March 30, 2017 21:02 - CONCLUSION: Soft tissue swelling without evidence of acute bony abnormality or significant arthropathy. Delfino Das MD Pending results at discharge: No Medications # of Antipsychotic meds at D/C: 1 Approp Antipsych med options 1 - Minimum of three failed multiple trials of monotherapy. 2 - Documented plan to taper to monotherapy due to previous use of multiple meds OR cross-taper in progress at D/C. 3 - Documentation of augmentation of Clozapine. 4 - Justification other than those listed in allowable values 1-3, document here : Discharge Discharge Date: Apr 10, 2017 Discharge Diagnosis: (1) Schizophrenia, paranoid type Diagnosis: Principal (improved versus admission) ICD Code: F20.0 - Paranoid schizophrenia Status: Acute Pt Condition on Discharge: Stable Discharge Disposition: Discharge Home Discharge Instructions Diet Instructions: As Tolerated, No Restrictions Activities you can perform: Weight Bearing as Maged Scheduled Appointment: [facility] Appointment Date: Apr 15, 2017 Appointment Time: 2:30 pm New Orders: AMMONIA - 1 Week New Medications: Haloperidol Decanoate Inj (Haldol Decanoate Inj) 100 Mg/Ml Inj 250 MG IM Q28D for Mental Health, #3 VIAL 0 Refills This dose of Haldol decanoate is due on 05/01/2017. Haloperidol (Haloperidol) 5 Mg Tab 12.5 MG PO BID for Mental Health for 15 Days, #75 TAB 1 Refill Discuss with your outpatient provider how best to taper off of oral Haldol now that you are on Haldol decanoate. Be sure to get your next Haldol decanoate injection. Zolpidem (Ambien) 5 Mg Tab 5 MG PO HS PRN for INSOMNIA, #20 TAB 1 Refill May repeat dose x 1 in 60 minutes if needed. [Benztropine] () 1 MG TAB 1.5 MG PO Q12HR for Side effect management for 15 Days, TAB 1 Refill [Lactulose Liq] () 30 ML SYRP 30 ML PO TID for Hyperammonemia for 15 Days, BOTTLE 1 Refill Continued Medications: Divalproex DR (Divalproex DR) 250 Mg Tabdr 500 MG PO Q12HR for Mental Health for 15 Days, TAB 1 Refill (This prescription has been renewed) Discontinued Medications: Clozapine (Clozapine) 200 Mg Tab 200 MG PO DAILY for Schizophrenia for 30 Days, #30 TAB 0 Refills Clozapine (Clozapine) 200 Mg Tab 400 MG PO DAILY for Schizophrenia for 30 Days, #60 TAB 0 Refills Discharge Time <= 30 minutes Mental Status Examination Appearance: Appropriate (grooming and hygiene improved versus admission) Consciousness: Alert Orientation: Person, Place Motor Activity: Other (I do not appreciate and objective hand tremor, no cogwheeling, no other abnormal motor movements noted.) Speech: Slow Language: Adequate Fund of Knowledge: Adequate Attention and Concentration: Adequate Mood: Other (denies issues with mood) Affect: Flat Thought Process & Associations: Logical, Linear, Other (a little slowed) Thought Content: Appropriate Hallucination Type: None Delusion Type: None Suicidal Ideation: No Suicidal Plan: No Suicidal Intention: No Homicidal Ideation: No Homicidal Plan: No Homicidal Intention: No Insight: Fair Judgment: Adequate (fair at best, likely chronic condition) Discharge/Advance Care Plan Health Problems: (1) Schizophrenia, paranoid type Goals to promote your health * To prevent worsening of your condition and complications * To maintain your health at the optimal level Directions to meet your goals Take your medications as prescribed Follow your dietary instruction Follow activity as directed Keep your appointments as scheduled Take your immunizations and boosters as scheduled If your symptoms worsen call your PCP, if no PCP go to Urgent Care Center or Emergency Room For 06/01 questions related to your inpatient stay or results of tests pending at discharge, please contact Dr. Viktor Maria at Smoking is Dangerous to Your Health. Avoid second hand smoking Viktor Maria MD Apr 10, 2017 11:35
== END 2017-04-10 14:25 | disposition home or self-care (01) | DRG 885 ==
LOC: NEPD 11:41 → NEDA 20:10 → H270 21:13 → UNDODISIN 04-10 10:30
PROVIDERS: ADMIT Psychiatry & Neurology Psychiatry; ATTEND Psychiatry & Neurology Psychiatry
DX: F20.0 Paranoid schizophrenia (principal); E72.20 Disorder of urea cycle metabolism, unspecified; Z91.14 Patient's other noncompliance with medication regimen; F16.90 Hallucinogen use, unspecified, uncomplicated; F17.210 Nicotine dependence, cigarettes, uncomplicated; R25.1 Tremor, unspecified; M79.641 Pain in right hand
CPT/HCPCS: 73120; 80053; 80061; 80159; 80164; 82140; 83036; 85025; 85027; 93005; G0480; J1200; J1630; J1631; J2060; J3230; Q0163

== ENCOUNTER 2017-07-02 17:24 | Inpatient (IN) | payer MEDICAID, OTHER ==
[~2017-07-02] VITALS: Ht 167.6 cm; Wt 66.6 kg
[~2017-07-02 17:24] MED LIST changes: +AMBI5TAB PO; +Benztropine PO; -CLOZ200T PO; +HALO100P IM; +HALO5TAB PO; +Lactulose Liq PO
[2017-07-02 17:26] VITALS: BP 137/70; PULSE 90; RESP 18; TEMP 98.4; O2SAT 98
--- NOTE | 2017-07-02 19:09 | PD ---
HPI Chief Complaint: Psychiatric Symptoms Time Seen by Provider: 19:05 Travel History International Travel<30 days: No Contact w/Intl Traveler<30days: No Traveled to known affect area: No History of Present Illness HPI 22-year-old male with history of paranoid schizophrenia here voluntarily for psychiatric evaluation. The patient reports that he hears voices, and this has been worsening recently. The voices tell him to hurt himself. He has not done anything to hurt himself. He takes Depakote and does not believe the medication is helping. He smokes cigarettes. He denies illicit drug use. He denies any toxic ingestions. No physical complaints. PFSH Past Medical History ADHD: No Asthma: Yes Bipolar Disorder: Yes Anxiety: Yes Depression: Yes Cancer: No (See EMR) Cardiovascular Problems: No (See EMR) Cerebrovascular Accident: No Diabetes: No (See EMR) Diminished Hearing: No Genitourinary: No Headaches: No Musculoskeletal: No Neurologic: No Psychiatric: Yes Reproductive: No Respiratory: Yes Immunizations Current: Yes Migraines: No Schizophrenia: Yes Sleep Apnea: No Thyroid Disease: No Ulcer: No PNEUMOCCOCAL Vaccine (Year): 1 Social History Alcohol Use: No (DENIES) Tobacco Use: Yes (4 CIGS A DAY) Substance Use: No (K2 5 1/2 YRS AGO PER MOM) Allergies-Medications (Allergen,Severity, Reaction): Coded Allergies: aspirin (Unverified Allergy, Severe, TACHYCARDIA, 01/28/17) Reported Meds & Prescriptions Reported Meds & Active Scripts Active Haldol Decanoate Inj (Haloperidol Decanoate) 100 Mg/Ml Inj 250 Mg IM Q28D This dose of Haldol decanoate is due on 05/01/2017. [Lactulose Liq] 30 ML Syrp 30 Ml PO TID 15 Days [Benztropine] 1 MG Tab 1.5 Mg PO Q12HR 15 Days Ambien (Zolpidem Tartrate) 5 Mg Tab 5 Mg PO HS PRN May repeat dose x 1 in 60 minutes if needed. Haloperidol 5 Mg Tab 12.5 Mg PO BID 15 Days Discuss with your outpatient provider how best to taper off of oral Haldol now that you are on Haldol decanoate. Be sure to get your next Haldol decanoate injection. Divalproex DR (Divalproex Sodium) 250 Mg Tabdr 500 Mg PO Q12HR 15 Days Review of Systems Except as stated in HPI: all other systems reviewed are Neg Physical Exam Narrative GENERAL: Well-developed, well-nourished, calm, comfortable, no apparent distress. SKIN: Focused skin assessment warm/dry. HEAD: Atraumatic. Normocephalic. EYES: Pupils equal and round. No scleral icterus. No injection or drainage. ENT: No nasal bleeding or discharge. Mucous membranes pink and moist. NECK: Trachea midline. No JVD. CARDIOVASCULAR: Regular rate and rhythm. No murmur appreciated. RESPIRATORY: No accessory muscle use. Clear to auscultation. Breath sounds equal bilaterally. GASTROINTESTINAL: Abdomen soft, non-tender, nondistended. MUSCULOSKELETAL: No obvious deformities. No clubbing. No cyanosis. No edema. NEUROLOGICAL: Awake and alert. No obvious cranial nerve deficits. Motor grossly within normal limits. Normal speech. PSYCHIATRIC: Calm, flat affect, poor eye contact. Data Data Last Documented VS Vital Signs Date Time Temp Pulse Resp B/P (MAP) Pulse Ox O2 Delivery O2 Flow Rate FiO2 07/02/17 17:26 98.4 90 18 137/70 (92) 98 Orders Orders Complete Blood Count With Diff (07/02/17 17:47) Comprehensive Metabolic Panel (07/02/17 17:47) Valproic Acid (Depakene) (07/02/17 17:47) Psych Screen (07/02/17 17:47) Drug Screen, Random Urine (07/02/17 17:47) Alcohol (Ethanol) (07/02/17 17:47) Labs Laboratory Tests Test 07/02/17 18:50 07/02/17 19:14 Urine Opiates Screen NEG Urine Barbiturates Screen NEG Urine Amphetamines Screen NEG Urine Benzodiazepines Screen POS Urine Cocaine Screen NEG Urine Cannabinoids Screen NEG White Blood Count 9.2 TH/MM3 Red Blood Count 5.37 MIL/MM3 Hemoglobin 14.3 GM/DL Hematocrit 44.1 % Mean Corpuscular Volume 82.1 FL Mean Corpuscular Hemoglobin 26.6 PG Mean Corpuscular Hemoglobin Concent 32.4 % Red Cell Distribution Width 14.6 % Platelet Count 252 TH/MM3 Mean Platelet Volume 8.6 FL Neutrophils (%) (Auto) 51.8 % Lymphocytes (%) (Auto) 35.0 % Monocytes (%) (Auto) 7.5 % Eosinophils (%) (Auto) 4.9 % Basophils (%) (Auto) 0.8 % Neutrophils # (Auto) 4.7 TH/MM3 Lymphocytes # (Auto) 3.2 TH/MM3 Monocytes # (Auto) 0.7 TH/MM3 Eosinophils # (Auto) 0.5 TH/MM3 Basophils # (Auto) 0.1 TH/MM3 CBC Comment DIFF FINAL Differential Comment Blood Urea Nitrogen 11 MG/DL Creatinine 0.97 MG/DL Random Glucose 86 MG/DL Total Protein 7.4 GM/DL Albumin 3.8 GM/DL Calcium Level 8.4 MG/DL Alkaline Phosphatase 70 U/L Aspartate Amino Transf (AST/SGOT) 10 U/L Alanine Aminotransferase (ALT/SGPT) 15 U/L Total Bilirubin 0.5 MG/DL Sodium Level 141 MEQ/L Potassium Level 4.0 MEQ/L Chloride Level 107 MEQ/L Carbon Dioxide Level 29.6 MEQ/L Anion Gap 4 MEQ/L Estimat Glomerular Filtration Rate 116 ML/MIN Valproic Acid (Depakene) Level 38 MCG/ML Ethyl Alcohol Level LESS THAN 3 MG/DL MDM Medical Decision Making Medical Screen Exam Complete: Yes Emergency Medical Condition: Yes Medical Record Reviewed: Yes Differential Diagnosis Paranoid schizophrenia with worsening hallucinations, acute psychosis, depression, metabolic abnormality, medication noncompliance Narrative Course Vitals and labs reviewed. The patient is medically cleared for psychiatric evaluation and disposition by them. Diagnosis Primary Impression: Schizophrenia, paranoid type Chago Anderson MD Jul 02, 2017 19:09
[2017-07-02 20:20] LABS: AUTOMATED NEUTROPHIL # 4.7 TH/MM3 (1.8-7.7); BASOPHIL # 0.1 TH/MM3 (0-0.2); BASOPHIL % 0.8 % (0.0-2.0); EOSINOPHIL # 0.5 TH/MM3 (0-0.4); EOSINOPHIL % 4.9 % (0.0-4.0); HEMATOCRIT 44.1 % (39.0-51.0); HEMOGLOBIN 14.3 GM/DL (13.0-17.0); LYMPHOCYTE # 3.2 TH/MM3 (1.0-4.8); MEAN CELL VOLUME 82.1 FL (80.0-100.0); MEAN CORPUSCULAR HEMOGLOBIN 26.6 PG (27.0-34.0); MEAN CORPUSCULAR HGB CONC 32.4 % (32.0-36.0); MEAN PLATELET VOLUME 8.6 FL (7.0-11.0); MONO % 7.5 % (0.0-8.0); MONOCYTE # 0.7 TH/MM3 (0-0.9); NEUT % 51.8 % (16.0-70.0); PLATELET COUNT 252 TH/MM3 (150-450); RED BLOOD COUNT 5.37 MIL/MM3 (4.50-5.90); RED CELL DISTRIBUTION WIDTH 14.6 % (11.6-17.2); WHITE BLOOD COUNT 9.2 TH/MM3 (4.0-11.0)
[2017-07-02 20:44] LABS: ALBUMIN 3.8 GM/DL (3.4-5.0); AST (GOT) 10 U/L (15-37); BICARBONATE 29.6 MEQ/L (21.0-32.0); BLOOD UREA NITROGEN 11 MG/DL (7-18); CALCIUM 8.4 MG/DL (8.5-10.1); CHLORIDE 107 MEQ/L (98-107); CREATININE 0.97 MG/DL (0.60-1.30); GLOMERULAR FILTRATION RATE 116 ML/MIN (>89); GLUCOSE,RANDOM 86 MG/DL (74-106); SODIUM (NA) 141 MEQ/L (136-145)
[2017-07-02 20:45] LABS: ALT (GPT) 15 U/L (12-78)
[2017-07-02 20:47] LABS: ALKALINE PHOSPHATASE 70 U/L (45-117); TOTAL BILIRUBIN ADULT 0.5 MG/DL (0.2-1.0); TOTAL PROTEIN 7.4 GM/DL (6.4-8.2)
[2017-07-03 01:40] VITALS: BP 136/85; PULSE 78; RESP 18; TEMP 97.1; O2SAT 100
[2017-07-03] MEDS ORDERED: diphenhydrAMINE HCL 50 MG/ML VIAL IM ONE (02:30)
[2017-07-03] MEDS ORDERED: HALOPERIDOL LACTATE 5 MG/ML AMP IM ONE (02:30)
[2017-07-03 05:53] VITALS: BP 119/66; PULSE 71; RESP 18; TEMP 98.2; O2SAT 98
[2017-07-03 12:33] VITALS: BP 126/72; PULSE 80; RESP 18; O2SAT 100
--- NOTE | 2017-07-03 14:52 | PD ---
History of Present Illness Chief Complaint: Psychiatric Symptoms Time Seen by Provider: 14:45 Travel History International Travel<30 Days: No Contact w/Intl Traveler<30days: No Known affected area: No Legal Status Legal Status: Pendleton Act Pend[place] Act Signed By: JULIA Santos History of Present Illness: History of Present Illness HPI 22-year-old male with history of paranoid schizophrenia who originally presented to the ED on a voluntary basis for psychiatric evaluation. ED documentation is reviewed and included in part in this report. " The patient reports that he hears voices, and this has been worsening recently. The voices tell him to hurt himself. He takes Depakote and does not believe the medication is helping. He smokes cigarettes. He denies illicit drug use. ". The patient upon arrival to the emergency department required ETO of Haldol and Benadryl due to aggressive behavior after punching a wall in [place]. Patient has been monitored here in [place] and has been observed responding to internal stimuli. Electronic medical record is reviewed. His last psychiatric admission was in March of this year. Current toxicology is negative except for benzos which are prescribed. Current Depakote level is 38 Patient is seen with nurse, Reyes. He is alert, oriented male who appears internally preoccupied. He denies that he is hearing voices right now. He does admit that he came to the hospital because he was feeling depressed and was hearing voices telling him to do various things. The patient reports medication compliance. He denies suicidal or homicidal ideation, intent or plan. Telephone call to patient's mother Isabel Valencia and presumptive healthcare surrogate at [phone]. She reports that for the past 2 weeks he has been shouting at nighttime, walking out into the streets, talking that the devil is after him to kill him. She also informs me that he has not been receiving his Haldol Decanoate injection after his release from the hospital in March. She is concerned that he will be hurt when he goes out of the house at night due to his continuing screaming and yelling. She is advocating for him to be back on an injectable medication. [facility]. [facility] Past Medical History ADHD: No Asthma: Yes Bipolar Disorder: Yes Anxiety: Yes Depression: Yes Cancer: No Cardiovascular Problems: No (See EMR) Cerebrovascular Accident: No Diabetes: No (See EMR) Diminished Hearing: No Genitourinary: No Headaches: No Musculoskeletal: No Neurologic: No Psychiatric: Yes Reproductive: No Respiratory: Yes Immunizations Current: Yes Migraines: No Schizophrenia: Yes Sleep Apnea: No Thyroid Disease: No Ulcer: No Influenza Vaccination: No PNEUMOCCOCAL Vaccine (Year): 1 Past Surgical History Surgical History: No Previous Surgery Psychiatric History Psychiatric History Hx Psychiatric Treatment: Pt has an extensive history of inpatient psychiatric services through [facility]. He currently receives outpatient psychiatric services through . Patient has been on Clozaril in the past. History of Inpatient Treatment: Yes (last admission March 2017) Social History Single, never , lives with his mother. Has completed 11th grade. Hx Alcohol Use: No (DENIES) Hx Tobacco Use: Yes (4 CIGS A DAY) Hx Substance Use: No (K2 5 1/2 YRS AGO PER MOM) Substance Use Type: Marijuana, Nicotine/Cigarettes Other Substances Used: few cigs a day Hx of Substance Use Treatment: No Family Psychiatric History Brother with mental illness. Allergies-Medications (Allergen,Severity, Reaction): Coded Allergies: aspirin (Unverified Allergy, Severe, TACHYCARDIA, 01/28/17) Reported Meds & Prescriptions Reported Meds & Active Scripts Active Haldol Decanoate Inj (Haloperidol Decanoate) 100 Mg/Ml Inj 250 Mg IM Q28D This dose of Haldol decanoate is due on 05/01/2017. [Lactulose Liq] 30 ML Syrp 30 Ml PO TID 15 Days [Benztropine] 1 MG Tab 1.5 Mg PO Q12HR 15 Days Ambien (Zolpidem Tartrate) 5 Mg Tab 5 Mg PO HS PRN May repeat dose x 1 in 60 minutes if needed. Haloperidol 5 Mg Tab 12.5 Mg PO BID 15 Days Discuss with your outpatient provider how best to taper off of oral Haldol now that you are on Haldol decanoate. Be sure to get your next Haldol decanoate injection. Divalproex DR (Divalproex Sodium) 250 Mg Tabdr 500 Mg PO Q12HR 15 Days Review of Systems Psychiatric: COMPLAINS OF: Depression, Hallucinations Mental Status Examination Appearance: Appropriate Consciousness: Alert Orientation: x4 Motor Activity: Normal gait Speech: Hesitant, Slow Language: Adequate Fund of Knowledge: Adequate Attention and Concentration: Easily Distracted Memory: Unremarkable Mood: Sad (withdrawn) Affect: Blunt Thought Process & Associations: Intact Thought Content: Hallucinations, Delusional Hallucination Type: Auditory Delusion Type: Paranoid, Other (believes the devil is after him) Suicidal Ideation: No Suicidal Plan: No Suicidal Intention: No Homicidal Ideation: No Homicidal Plan: No Homicidal Intention: No Insight: Poor Judgment: Poor MDM Medical Decision Making Medical Record Reviewed: Yes Assessment/Plan 22-year-old single male with history of schizophrenia, paranoid who is under a Pendleton act. The patient presented to the ED reporting that he was feeling depressed, hearing voices" that come and go out of my mouth and go into my ears, " as well as telling him to get aggressive and violent. It is also reported that the patient has been going out of his home and nighttime screaming and yelling. The patient has not received his Haldol Decanoate injection since his discharge from the inpatient psychiatric unit in March. At this time the patient meets criteria for inpatient psychiatric hospitalization for further observation, maintain safety, and to stabilize. Orders Orders Complete Blood Count With Diff (07/02/17 17:47) Comprehensive Metabolic Panel (07/02/17 17:47) Valproic Acid (Depakene) (07/02/17 17:47) Psych Screen (07/02/17 17:47) Drug Screen, Random Urine (07/02/17 17:47) Alcohol (Ethanol) (07/02/17 17:47) Haloperidol Inj (Haldol Inj) (07/03/17 02:30) Diphenhydramine Inj (Benadryl Inj) (07/03/17 02:30) Diet Regular Basic (07/03/17 Breakfast) Diet Regular Basic (07/03/17 Lunch) Results Vital Signs Date Time Temp Pulse Resp B/P (MAP) Pulse Ox O2 Delivery O2 Flow Rate FiO2 07/03/17 12:33 80 18 126/72 (90) 100 Room Air 07/03/17 05:53 98.2 71 18 119/66 (83) 98 Room Air 07/03/17 01:40 97.1 78 18 136/85 (102) 100 Room Air 07/02/17 17:26 98.4 90 18 137/70 (92) 98 Laboratory Tests Test 07/02/17 18:50 07/02/17 19:14 Urine Opiates Screen NEG Urine Barbiturates Screen NEG Urine Amphetamines Screen NEG Urine Benzodiazepines Screen POS Urine Cocaine Screen NEG Urine Cannabinoids Screen NEG White Blood Count 9.2 Red Blood Count 5.37 Hemoglobin 14.3 Hematocrit 44.1 Mean Corpuscular Volume 82.1 Mean Corpuscular Hemoglobin 26.6 Mean Corpuscular Hemoglobin Concent 32.4 Red Cell Distribution Width 14.6 Platelet Count 252 Mean Platelet Volume 8.6 Neutrophils (%) (Auto) 51.8 Lymphocytes (%) (Auto) 35.0 Monocytes (%) (Auto) 7.5 Eosinophils (%) (Auto) 4.9 Basophils (%) (Auto) 0.8 Neutrophils # (Auto) 4.7 Lymphocytes # (Auto) 3.2 Monocytes # (Auto) 0.7 Eosinophils # (Auto) 0.5 Basophils # (Auto) 0.1 CBC Comment DIFF FINAL Differential Comment Blood Urea Nitrogen 11 Creatinine 0.97 Random Glucose 86 Total Protein 7.4 Albumin 3.8 Calcium Level 8.4 Alkaline Phosphatase 70 Aspartate Amino Transf (AST/SGOT) 10 Alanine Aminotransferase (ALT/SGPT) 15 Total Bilirubin 0.5 Sodium Level 141 Potassium Level 4.0 Chloride Level 107 Carbon Dioxide Level 29.6 Anion Gap 4 Estimat Glomerular Filtration Rate 116 Valproic Acid (Depakene) Level 38 Ethyl Alcohol Level LESS THAN 3 Diagnosis Primary Impression: Schizophrenia, paranoid type Admitting Information Admitting Physician Requests: Admit Disposition: DISCHARGE HOME Condition: Stable Zoraida Cruz Kraig DUMONT Jul 03, 2017 14:52
[2017-07-03] MEDS ORDERED: ALUMINUM/MAGNESIUM/SIMETH 30 ML CUP PO PRN (15:30)
[2017-07-03] MEDS ORDERED: ACETAMINOPHEN 325 MG TAB PO PRN (15:30)
[2017-07-03] MEDS ORDERED: MAGNESIUM HYDROXIDE SUSP 30 ML CUP PO PRN (15:30)
[2017-07-03 17:22] VITALS: BP 131/79; PULSE 79; RESP 18; TEMP 98; O2SAT 100
[2017-07-03] MEDS: NICOTINE 21 MG/24 HR PATCH T-DERMAL SCH (17:53)
[2017-07-03] MEDS: DIVALPROEX SODIUM DELAYED RELEASE 250 MG TAB PO SCH (20:40)
[2017-07-04] MEDS ORDERED: HALOPERIDOL LACTATE 5 MG/ML AMP ONE (04:58)
[2017-07-04] MEDS ORDERED: LORazepam 2 MG/ML VIAL ONE (04:58)
[2017-07-04] MEDS ORDERED: HALOPERIDOL LACTATE 5 MG/ML AMP IM ONE (05:00)
[2017-07-04] MEDS ORDERED: LORazepam 2 MG/ML VIAL IM ONE (05:00)
[2017-07-04 05:50] VITALS: BP 120/92; PULSE 71; RESP 18; TEMP 97.3; O2SAT 98
[2017-07-04] MEDS: NICOTINE 21 MG/24 HR PATCH T-DERMAL SCH (08:22)
[2017-07-04] MEDS: REMOVE OLD PATCH T-DERMAL SCH (08:22)
[2017-07-04] MEDS: DIVALPROEX SODIUM DELAYED RELEASE 250 MG TAB PO SCH ×2 (08:22→20:55)
--- NOTE | 2017-07-04 11:13 | EKG ---
Date Performed: 07/04/2017 Time Performed: 09:02:35 PTAGE: 22 years EKG: Sinus rhythm WITH SINUS ARRHYTHMIA NORMAL ECG No significant change from prior electrocardiogram. PREVIOUS TRACING : 03/30/2017 15.06 DOCTOR: Roderick Diehl Interpretating Date/Time 07/04/2017 11:12:04
--- NOTE | 2017-07-04 11:38 | HHI.HP ---
Provisional Diagnosis Admission Date Jul 03, 2017 at 15:31 Eckerman I. 1. Schizophrenia, paranoid type, acute exacerbation Eckerman II. Deferred Certification of Person's Competence To Provide Express and Informed Consent I have personally examined Divine Gay , a person being served at [facility] on, Jul 04, 2017 11:21. Express and informed consent means consent voluntarily given in writing, by a competent person, after sufficient explanation and disclosure of the subject matter involved to enable the person to make a knowing and willful decision without any element of force, fraud, deceit, duress, or other form of constraint or coercion. This person is 18 years of age or older, is not now known to be incompetent to consent to treatment with a guardian advocate, and does not have a health care surrogate or proxy currently making medical treatment decisions. I have found this person to be one of the following: [x] Competent to provide express and informed consent, as defined above, for voluntary admission to this facility and is competent to provide express and informed consent for treatment. He/she has the consistent capacity to make well reasoned, willful, and knowing decisions concerning his or her medical or mental health treatment. The person fully and consistently understands the purpose of the admission for examination/placement and is fully capable of personally exercising all rights [place] Incompetent to provide express and informed consent to voluntary admission, and this is incompetent to provide express and informed consent to treatment. The person must be transferred to involuntary status and a petition for a guardian advocate filed with the Circuit Court. [] Refusing to provide express and informed consent to voluntary admission but is competent to provide express and informed consent for treatment. The person must be discharged or transferred to involuntary status. Form shall be completed within 24 hours of a person's arrival at the receiving facility and filed in the clinical record of each person: 1. Admitted on a voluntary basis 2. Permitted to provide express and informed consent to his/her own treatment 3. Allowed to transfer from involuntary to voluntary status 4. Prior to permitting a person to consent to his or her own treatment after having been previously found incompetent to consent to treatment. History of Present Illness Capacity: Has Capacity Psych Chief Complaint: Psychosis HPI Mr. Gay is a 22-year-old male with a history of schizophrenia who presented to the ED voluntarily with complaints of command auditory hallucinations to self injure per the ED provider's note. The patient was evaluated by the psychiatric nurse practitioner in the emergency department and placed on a [place] act. Collateral was obtained from patient's mother by the psychiatric nurse practitioner. Patient is well known to the psychiatric service here from previous psychiatric admissions and was admitted most recently under my care in March of last year, at which time he was stabilized on Haldol Decanoate 250 mg IM as well as Depakote 500 mg twice daily. Electronic medical record reviewed. Patient seen and examined with nurse and nursing students. Chart reviewed. Case discussed with nursing staff. Patient was apparently agitated and screaming overnight and was medicated at around 5 AM this morning with Haldol and Ativan IM. On my examination today, the patient is consequently somewhat sedated. He is able to awaken for a brief interview. He tells me that he is hearing "voices and hearing the devil." He says that this has been going on for "a long time" apparently several months. He has apparently been nonadherent with his psychotropic medications since leaving the hospital last time. He says that the devil was telling him "I'm possessed of some kind of demon." He does not describe any command auditory hallucinations to self injure at this time. He denies any suicidal or homicidal ideation. He also endorses visual hallucinations of "red devils." Sleep and appetite are reportedly fair. Personal hygiene is somewhat impaired, and the patient is fairly disheveled and malodorous. Affect is somewhat dysphoric. No depressive or hypomanic/manic symptoms reported. He denies any substance use prior to admission. Psychiatric interview is limited because the patient is presently fairly sleepy following medication this morning. No physical complaints. Unable to obtain any past psychiatric, family, poor social history from the patient because of current mental status. I did endeavor to place a call to the patient's mother at the number listed in the nurse practitioner's note. I left a generic voicemail requesting a call back. Returned to see patient in the afternoon. He is much more alert and conversant. He is able to comprehend the purpose of admission and also is able to engage in a discussion regarding medications. Treatment plan discussed with patient, and he is in agreement. Review of Systems ROS Limitations: Psychotic, Poor Historian, Other (somewhat sedated from medications) Other Limited ROS Past Psych History Psychological trauma history None reported Violence risk - others (6 mos) Indeterminate. Psychotic and unpredictable Violence risk - self (6 mos) Indeterminate. Psychotic and unpredictable Substance Abuse History Drugs/Alcohol past 12 months See above Past Family Social History Coded Allergies: aspirin (Unverified Allergy, Severe, TACHYCARDIA, 01/28/17) Past Medical History See electronic medical record Active Scripts [Lactulose Liq] 30 ML SYRP No Conflict Check, 30 ML PO TID for Hyperammonemia for 15 Days, BOTTLE 1 Refill Prov:Viktor Maria MD 04/10/17 [Benztropine] 1 MG TAB No Conflict Check, 1.5 MG PO Q12HR for Side effect management for 15 Days, TAB 1 Refill Prov:Viktor Maria MD 04/10/17 Zolpidem (Ambien) 5 Mg Tab, 5 MG PO HS Y for INSOMNIA, #20 TAB 1 Refill May repeat dose x 1 in 60 minutes if needed. Prov:Viktor Maria MD 04/10/17 Haloperidol (Haloperidol) 5 Mg Tab, 12.5 MG PO BID for Mental Health for 15 Days , #75 TAB 1 Refill Discuss with your outpatient provider how best to taper off of oral Haldol now that you are on Haldol decanoate. Be sure to get your next Haldol decanoate injection. Prov:Viktor Maria MD 04/10/[address] (Divalproex DR) 250 Mg Tabdr, 500 MG PO Q12HR for Mental Health for 15 Days, TAB 1 Refill Prov:Viktor Maria MD 04/10/17 Discontinued Scripts Haloperidol Decanoate Inj (Haldol Decanoate Inj) 100 Mg/Ml Inj, 250 MG IM Q28D for Mental Health, #3 VIAL 0 Refills This dose of Haldol decanoate is due on 05/01/2017. Prov:Viktor Maria MD 04/10/17 Current Medications Medications (Trade) Dose Ordered Sig/Harvey Route Start Time Stop Time Status Last Admin (Tylenol) 650 mg Q4H PRN PO 07/03/17 15:30 (Milk Of Magnesia Liq) 30 ml DAILY PRN PO 07/03/17 15:30 (Mag-Al Plus Susp Liq) 30 ml Q6H PRN PO 07/03/17 15:30 (Habitrol 21 Mg Patch.24 Hr) 1 patch DAILY T-DERMAL 07/03/17 16:00 07/04/17 08:22 Miscellaneous Information 1 DAILY T-DERMAL 07/04/17 09:00 07/04/17 08:22 (Depakote Dr) 500 mg Q12HR PO 07/03/17 21:00 07/04/17 08:22 Family Psych History See above Social History See above Patient's Strengths (min. 2) In a monitored setting. Verbally fluent. Physical Exam Physical exam completed by ED provider. On my examination today, the patient appears to be in no acute physical distress. No motor abnormalities noted. Labs and vitals reviewed: Vital Signs Vital Signs Date Time Temp Pulse Resp B/P (MAP) Pulse Ox O2 Delivery O2 Flow Rate FiO2 07/04/17 05:50 97.3 71 18 120/92 (101) 98 07/03/17 12:33 Room Air Lab Results Item Value Date Time White Blood Count 9.2 TH/MM3 07/02/171913 Hemoglobin 14.3 GM/DL 07/02/171913 Platelet Count 252 TH/MM3 07/02/171913 Sodium Level 141 MEQ/L 07/02/171913 Chloride Level 107 MEQ/L 07/02/171913 Potassium Level 4.0 MEQ/L 07/02/171913 Carbon Dioxide Level 29.6 MEQ/L 07/02/171913 Blood Urea Nitrogen 11 MG/DL 07/02/171913 Creatinine 0.97 MG/DL 07/02/171913 Estimat Glomerular Filtration Rate 116 ML/MIN 07/02/171913 Random Glucose 86 MG/DL 07/02/171913 Aspartate Amino Transf (AST/SGOT) 10 U/L L 07/02/171913 Alanine Aminotransferase (ALT/SGPT) 15 U/L 07/02/171913 Alkaline Phosphatase 70 U/L 07/02/171913 Valproic Acid (Depakene) Level 38 MCG/ML L 07/02/171913 Urine Benzodiazepines Screen POS H 07/02/17 1850 Ethyl Alcohol Level LESS THAN 3 MG/DL 07/02/171913 EKG sinus rhythm with QTcH 375ms, not prolonged. Depakote level subtherapeutic (previously had been in therapeutic range on current dose, suggesting possible nonadherence) Mental Status Examination Appearance: Appropriate Consciousness: Other (Sleepy but arouseable) Orientation: x4 Motor Activity: Other (no motor abnormalities noted) Speech: Slow Language: Adequate Fund of Knowledge: Adequate Attention and Concentration: Easily Distracted Memory: Unremarkable Mood: Other (mildly dysphoric) Affect: Other (restricted) Thought Process & Associations: Intact Thought Content: Hallucinations, Delusional Hallucination Type: Auditory, Visual Delusion Type: Paranoid, Other (believes the devil is after him) Suicidal Ideation: No Suicidal Plan: No Suicidal Intention: No Homicidal Ideation: No Homicidal Plan: No Homicidal Intention: No Insight: Poor Judgment: Poor Assessment & Plan Problem List: (1) Schizophrenia, paranoid type ICD Codes: F20.0 - Paranoid schizophrenia Status: Acute (2) Noncompliance with medication regimen ICD Codes: Z91.14 - Patient's other noncompliance with medication regimen Assessment & Plan 22-year-old male with psychiatric history as detailed above who is presently admitted to the inpatient psychiatric unit under a P[place] act. On my examination today, the patient reports medication nonadherence with subsequent psychotic decompensation. He is presently experiencing audiovisual hallucinations of devils and demons and was apparently experiencing command auditory hallucinations earlier. Patient requires psychiatric admission at this time for safety, observation and stabilization. Admit inpatient. Voluntary status. Resume Haldol 12.5 mg twice daily. Initiate Haldol Decanoate given history of good tolerability of this agent and need for long-acting injectable given medication nonadherence issues. I will administer 100 mg IM tomorrow with plans to administer the balance of the dose in 4-7 days after that. Resume Cogentin 1.5 mg twice daily. Continue Depakote as ordered with plans to check a Depakote and ammonia level middle of next week. Resume lactulose for hyperammonemia associated with Depakote therapy. R/ B/A for meds discussed with patient. Haldol as needed for severe agitation, Ativan as needed for anxiety, Benadryl as needed for EPS, Ambien as needed for sleep. Vitals every shift. Counselor to see and obtain collateral. Disposition planning. Estimated length of stay: 7-9 days. To consider petition for outpatient commitment to try to improve medication adherence in the community. Discharge Planning Pending psychiatric stabilization Request HC Surrog/Guard Advoc?: Yes Viktor Maria MD Jul 04, 2017 11:38
[2017-07-04 11:43] LABS: BICARBONATE 27.1 MEQ/L (21.0-32.0); BLOOD UREA NITROGEN 10 MG/DL (7-18); CALCIUM 8.7 MG/DL (8.5-10.1); CHLORIDE 103 MEQ/L (98-107); CREATININE 0.86 MG/DL (0.60-1.30); GLOMERULAR FILTRATION RATE 134 ML/MIN (>89); GLUCOSE,RANDOM 80 MG/DL (74-106); SODIUM (NA) 141 MEQ/L (136-145)
[2017-07-04 11:44] LABS: CHOLESTEROL 152 MG/DL (120-200); TRIGLYCERIDES 80 MG/DL (42-150)
[2017-07-04] MEDS ORDERED: HALOPERIDOL 5 MG TAB PO PRN (11:45)
[2017-07-04] MEDS ORDERED: LORazepam 2 MG/ML VIAL IM PRN (11:45)
[2017-07-04] MEDS ORDERED: HALOPERIDOL LACTATE 5 MG/ML AMP IM PRN (11:45)
[2017-07-04] MEDS ORDERED: diphenhydrAMINE HCL 50 MG/ML VIAL IM PRN (11:45)
[2017-07-04 12:10] LABS: CHOLESTEROL/ HDL RATIO 2.66 RATIO; LDL CHOLESTEROL 79 MG/DL (0-99)
[2017-07-04] MEDS ORDERED: PILL SPLITTER OTHER PRN (13:45)
[2017-07-04 14:25] LABS: HEMOGLOBIN A1C 5.4 % (4.3-6.0)
[2017-07-04] MEDS: BENZTROPINE MESYLATE 1 MG TAB PO SCH ×2 (15:41→20:55)
[2017-07-04] MEDS: HALOPERIDOL 5 MG TAB PO SCH ×2 (15:41→20:56)
[2017-07-04] MEDS: LACTULOSE SYRUP 20 GM/30 ML CUP PO SCH ×2 (15:41→18:00)
[2017-07-04 17:58] VITALS: BP 120/73; PULSE 73; RESP 18; TEMP 97.6; O2SAT 98
[2017-07-04] MEDS: ZOLPIDEM TARTRATE 5 MG TAB PO PRN (21:04)
[2017-07-05 06:06] VITALS: BP 90/53; PULSE 58; RESP 16; TEMP 98.3; O2SAT 100
[2017-07-05] MEDS: HALOPERIDOL 5 MG TAB PO SCH ×2 (08:14→20:09)
[2017-07-05] MEDS: DIVALPROEX SODIUM DELAYED RELEASE 250 MG TAB PO SCH ×2 (08:14→20:09)
[2017-07-05] MEDS: LACTULOSE SYRUP 20 GM/30 ML CUP PO SCH ×3 (08:14→17:10)
[2017-07-05] MEDS: BENZTROPINE MESYLATE 1 MG TAB PO SCH ×2 (08:14→20:09)
[2017-07-05] MEDS: REMOVE OLD PATCH T-DERMAL SCH (08:15)
[2017-07-05] MEDS: NICOTINE 21 MG/24 HR PATCH T-DERMAL SCH (08:15)
[2017-07-05] MEDS ORDERED: HALOPERIDOL DECANOATE 50 MG/ML VIAL IM SCH (12:00)
--- NOTE | 2017-07-05 13:18 | HHI.PYPN ---
Subjective Chief Complaint: Psychosis Remarks Patient was seen and case discussed with nursing. Patient remains acutely psychotic. Says he is haunted by angels that are talking to him throughout the day. Affect is quite blunted. He is compliant with his medications and behaving well on the unit. Denies suicidal or homicidal ideation intent or plan Mental Status Examination Appearance: Appropriate Consciousness: Other (Sleepy but arouseable) Orientation: x4 Motor Activity: Other (no motor abnormalities noted) Speech: Slow Language: Adequate Fund of Knowledge: Adequate Attention and Concentration: Easily Distracted Memory: Unremarkable Mood: Other (mildly dysphoric) Affect: Other (restricted) Thought Process & Associations: Intact Thought Content: Hallucinations, Delusional Hallucination Type: Auditory (angels), Visual Delusion Type: Paranoid, Other (believes the devil is after him) Suicidal Ideation: No Suicidal Plan: No Suicidal Intention: No Homicidal Ideation: No Homicidal Plan: No Homicidal Intention: No Insight: Poor Judgment: Poor Results Vitals/IOs Vital Signs Date Time Temp Pulse Resp B/P (MAP) Pulse Ox O2 Delivery O2 Flow Rate FiO2 07/05/17 06:06 98.3 58 16 90/53 (65) 100 07/03/17 12:33 Room Air Assessment & Plan Problem List: (1) Schizophrenia, paranoid type ICD Codes: F20.0 - Paranoid schizophrenia Status: Acute (2) Noncompliance with medication regimen ICD Codes: Z91.14 - Patient's other noncompliance with medication regimen Assessment & Plan Continue current treatment plan Justification for Cont. Inpt. Patient will decompensate in a less restrictive setting Request HC Surrog/Guard Advoc?: Yes Hema Pearl DO Jul 05, 2017 13:18
[2017-07-05 18:20] VITALS: BP 133/73; PULSE 86; RESP 17; TEMP 98.3; O2SAT 100
[2017-07-05] MEDS: diphenhydrAMINE HCL 50 MG CAP PO PRN (20:09)
[2017-07-05] MEDS: ZOLPIDEM TARTRATE 5 MG TAB PO PRN (20:09)
[2017-07-06 05:51] VITALS: BP 119/77; PULSE 68; RESP 17; TEMP 97.2; O2SAT 99
[2017-07-06] MEDS: NICOTINE 21 MG/24 HR PATCH T-DERMAL SCH (09:00)
[2017-07-06] MEDS: REMOVE OLD PATCH T-DERMAL SCH (09:00)
[2017-07-06] MEDS: LACTULOSE SYRUP 20 GM/30 ML CUP PO SCH ×3 (09:38→18:11)
[2017-07-06] MEDS: DIVALPROEX SODIUM DELAYED RELEASE 250 MG TAB PO SCH ×2 (09:39→21:02)
[2017-07-06] MEDS: BENZTROPINE MESYLATE 1 MG TAB PO SCH ×2 (09:39→21:03)
[2017-07-06] MEDS: HALOPERIDOL 5 MG TAB PO SCH ×2 (09:40→21:02)
--- NOTE | 2017-07-06 14:44 | HHI.PYPN ---
Subjective Chief Complaint: Psychosis Remarks Patient was seen and case discussed with nursing. Patient continues to be troubled by bizarre nondenominational delusions. Patient believes that the devil wants his life. He is also hearing angels. Affect is flat and at times anxious. His compliant with his medications and tolerating them well. Behaving well on the unit. Denies suicidal or homicidal ideation intent or plan Mental Status Examination Appearance: Appropriate Consciousness: Other (Sleepy but arouseable) Orientation: x4 Motor Activity: Other (no motor abnormalities noted) Speech: Slow Language: Adequate Fund of Knowledge: Adequate Attention and Concentration: Easily Distracted Memory: Unremarkable Mood: Other (mildly dysphoric) Affect: Other (restricted) Thought Process & Associations: Intact Thought Content: Hallucinations, Preoccupations, Delusional Hallucination Type: Auditory (angels) Delusion Type: Paranoid, Other (believes the devil is after him) Suicidal Ideation: No Suicidal Plan: No Suicidal Intention: No Homicidal Ideation: No Homicidal Plan: No Homicidal Intention: No Insight: Poor Judgment: Poor Results Vitals/IOs Vital Signs Date Time Temp Pulse Resp B/P (MAP) Pulse Ox O2 Delivery O2 Flow Rate FiO2 07/06/17 05:51 97.2 68 17 119/77 (91) 99 07/03/17 12:33 Room Air Assessment & Plan Problem List: (1) Schizophrenia, paranoid type ICD Codes: F20.0 - Paranoid schizophrenia Status: Acute (2) Noncompliance with medication regimen ICD Codes: Z91.14 - Patient's other noncompliance with medication regimen Assessment & Plan Continue current treatment plan Justification for Cont. Inpt. Patient would decompensate in a less restrictive setting Request HC Surrog/Guard Advoc?: Yes Hema Pearl DO Jul 06, 2017 14:44
[2017-07-06 18:12] VITALS: BP 120/68; PULSE 70; RESP 17; TEMP 98.8; O2SAT 100
[2017-07-06] MEDS: diphenhydrAMINE HCL 50 MG CAP PO PRN (21:02)
[2017-07-06] MEDS: ZOLPIDEM TARTRATE 5 MG TAB PO PRN (21:03)
[2017-07-06] MEDS: LORazepam 1 MG TAB PO PRN (23:42)
[2017-07-07 05:45] VITALS: BP 120/54; PULSE 60; RESP 17; TEMP 97.7; O2SAT 99
[2017-07-07] MEDS: LACTULOSE SYRUP 20 GM/30 ML CUP PO SCH ×3 (08:07→17:24)
[2017-07-07] MEDS: REMOVE OLD PATCH T-DERMAL SCH (08:07)
[2017-07-07] MEDS: HALOPERIDOL 5 MG TAB PO SCH ×2 (08:07→20:08)
[2017-07-07] MEDS: DIVALPROEX SODIUM DELAYED RELEASE 250 MG TAB PO SCH ×2 (08:07→20:07)
[2017-07-07] MEDS: BENZTROPINE MESYLATE 1 MG TAB PO SCH ×2 (08:07→20:08)
[2017-07-07] MEDS: NICOTINE 21 MG/24 HR PATCH T-DERMAL SCH (08:08)
--- NOTE | 2017-07-07 12:02 | HHI.PYPN ---
Subjective Chief Complaint: Psychosis Remarks Patient seen and examined. Chart reviewed. Case discussed with nursing staff. No behavioral problems on the unit. Noted to be somewhat seclusive to room. On my examination today, the patient is calm. He reports some decrease in hallucinations, possibly approaching chronic baseline. No SI or HI. No delusional material elicited. He does ask me to "lower some of my meds for me" although it is unclear why. He denies any side effects from medications. No physical complaints. Review of Systems ROS Limitations: Psychotic, Poor Historian Except as stated in HPI: all other systems reviewed are Neg Mental Status Examination Appearance: Appropriate Consciousness: Alert Orientation: x4 Motor Activity: Other (no abnormal motor movements noted. No EPS noted.) Speech: Slow Language: Adequate Fund of Knowledge: Adequate Attention and Concentration: Other (fair) Memory: Unremarkable Mood: Other (calm) Affect: Blunt Thought Process & Associations: Intact, Linear Thought Content: Hallucinations Hallucination Type: Auditory (decreasing) Delusion Type: None Suicidal Ideation: No Suicidal Plan: No Suicidal Intention: No Homicidal Ideation: No Homicidal Plan: No Homicidal Intention: No Insight: Poor Judgment: Poor Results Labs Labs reviewed. Low vitamin D noted. Vitals/IOs Vital Signs Date Time Temp Pulse Resp B/P (MAP) Pulse Ox O2 Delivery O2 Flow Rate FiO2 07/07/17 05:45 97.7 60 17 120/54 (76) 99 07/03/17 12:33 Room Air Assessment & Plan Problem List: (1) Schizophrenia, paranoid type ICD Codes: F20.0 - Paranoid schizophrenia Status: Acute (2) Noncompliance with medication regimen ICD Codes: Z91.14 - Patient's other noncompliance with medication regimen Assessment & Plan Continue oral Haldol supplementing Haldol Decanoate. Plan for additional Haldol Decanoate to bring total IM dose to 10-20 times the oral dose. Continue Cogentin. Continue Depakote with lactulose. Check a Depakote and ammonia level tomorrow morning. Continue to monitor on the inpatient unit. Continue other medications and care as ordered. I have ongoing concerns about patient's adherence with psychotropic medications in the outpatient setting. I will initiate a petition for involuntary outpatient commitment and consult for a second opinion. Justification for Cont. Inpt. Risk for decompensation in less restrictive environment. Discharge Planning Possible discharge later this week after booster dose of Haldol Decanoate. Petition for outpatient commitment initiated. Request HC Surrog/Guard Advoc?: No Viktor Maria MD Jul 07, 2017 12:02
[2017-07-07 17:07] VITALS: BP 111/69; PULSE 64; RESP 17; TEMP 97.9; O2SAT 99
[2017-07-07 17:45] VITALS: BP 111/69; PULSE 64; RESP 17; TEMP 97.9; O2SAT 99
[2017-07-07] MEDS: LORazepam 1 MG TAB PO PRN (20:11)
[2017-07-07] MEDS: ZOLPIDEM TARTRATE 5 MG TAB PO PRN (22:36)
[2017-07-08 05:54] VITALS: BP 115/75; PULSE 60; RESP 18; TEMP 97.4; O2SAT 99
[2017-07-08] MEDS: DIVALPROEX SODIUM DELAYED RELEASE 250 MG TAB PO SCH ×2 (09:00→21:38)
[2017-07-08] MEDS: REMOVE OLD PATCH T-DERMAL SCH (09:00)
[2017-07-08] MEDS: BENZTROPINE MESYLATE 1 MG TAB PO SCH ×2 (09:00→21:38)
[2017-07-08] MEDS: LACTULOSE SYRUP 20 GM/30 ML CUP PO SCH ×3 (09:00→16:50)
[2017-07-08] MEDS: HALOPERIDOL 5 MG TAB PO SCH ×2 (09:00→21:38)
[2017-07-08] MEDS: NICOTINE 21 MG/24 HR PATCH T-DERMAL SCH (09:00)
--- NOTE | 2017-07-08 11:52 | PD.TTN ---
Patient Problems 1. Discharge planning 2. Medication compliance 3. Knowledge deficit 4. Lack of coping skills Progress Toward Goals Provider Present: Dr. Miky Maria Provider Input: 07/08/2017 - Dr. Maria has re-started the patient on his medications, and that he will file for out-patient committment program. Patient will attend [place] act hearing this . Psychiatric Counselors Present: JUAN Bates Psych Therapist Input: 07/08/2017 - Patient appeared to be responding to internal stimuli yesterday as evidenced by him pacing the halls with his hands covering his ears. Patient refused to engage with this counselor. Group Spec/RT/OT/SERRANO Present: JOVANNI Bocanegra Group Spec/RT/OT/SERRANO Input: 07/08/2017 - Patient attends select groups and activities. Discharge Plan [facility] Patient will follow-up with [facility] and Dr. Maria has filed a request for patient to become a participant in the out-patient commitment program. Documentation Scribe: JUAN Bates Date Resolved: Jul 08, 2017 Kinjal Sousa Jul 08, 2017 11:52
--- NOTE | 2017-07-08 12:16 | PD.PSY.CON ---
Provisional Diagnosis Admission Date Jul 03, 2017 at 15:31 [place] I. 1. Schizophrenia, paranoid type, acute exacerbation [place] II. Deferred History of Present Illness Service Psychiatry Consult Requested By Dr. Maria Reason for Consult Second opinion of outpatient mandatory care Primary Care Physician Unknown HPI Mr. Gay is a 22-year-old male with a history of schizophrenia who presented to the ED voluntarily with complaints of command auditory hallucinations to self injure per the ED provider's note. The patient was evaluated by the psychiatric nurse practitioner in the emergency department and placed on a [place] act. Collateral was obtained from patient's mother by the psychiatric nurse practitioner. Patient is well known to the psychiatric service here from previous psychiatric admissions and was admitted most recently under my care in March of last year, at which time he was stabilized on Haldol Decanoate 250 mg IM as well as Depakote 500 mg twice daily. Electronic medical record reviewed.Patient seen and examined with nurse and nursing students. Chart reviewed. Case discussed with nursing staff. Patient was apparently agitated and screaming overnight and was medicated at around 5 AM this morning with Haldol and Ativan IM. On my examination today, the patient is consequently somewhat sedated. He is able to awaken for a brief interview. He tells me that he is hearing "voices and hearing the devil." He says that this has been going on for "a long time" apparently several months. He has apparently been nonadherent with his psychotropic medications since leaving the hospital last time. He says that the devil was telling him "I'm possessed of some kind of demon." He does not describe any command auditory hallucinations to self injure at this time. He denies any suicidal or homicidal ideation. He also endorses visual hallucinations of "red devils." Sleep and appetite are reportedly fair. Personal hygiene is somewhat impaired, and the patient is fairly disheveled and malodorous. Affect is somewhat dysphoric. No depressive or hypomanic/manic symptoms reported. He denies any substance use prior to admission. Psychiatric interview is limited because the patient is presently fairly sleepy following medication this morning. No physical complaints. Unable to obtain any past psychiatric, family, poor social history from the patient because of current mental status. The patient is a 22 years old man, domicile with his mother, unemployed, single, with psychiatric history of schizophrenia, multiple psychiatric hospitalizations, he is well known by the psychiatric service, he has history of noncompliance with his medications, who came to the ED voluntarily requesting help with increased psychosis consistent in auditory hallucinations of voices "of demos and evil in my head". He reports that he has been waking up at night and running out of his house trying to get away from these voices. Patient says that he has been experiencing these psychosis for a long time now. At the moment of this evaluation patient is guarded, has been isolated in his room, he seems to be internally preoccupied. Review of Systems Constitutional: DENIES: Diaphoretic episodes, Fatigue, Fever, Weight gain, Weight loss, Chills, Dizziness, Change in appetite, Night Sweats Endocrine: DENIES: Heat/cold intolerance, Polydipsia, Polyuria, Polyphagia Eyes: DENIES: Blurred vision, Diplopia, Eye inflammation, Eye pain, Vision loss , Photosensitivity, Double Vision Ears, nose, mouth, throat: DENIES: Tinnitus, Hearing loss, Vertigo, Nasal discharge, Oral lesions, Throat pain, Hoarseness, Ear Pain, Running Nose, Epistaxis, Sinus Pain, Toothache, Odynophagia Respiratory: DENIES: Apneas, Cough, Snoring, Wheezing, Hemoptysis, Sputum production, Shortness of breath Cardiovascular: DENIES: Chest pain, Palpitations, Syncope, Dyspnea on Exertion , PND, Lower Extremity Edema, Orthopnea, Claudication Gastrointestinal: DENIES: Abdominal pain, Black stools, Bloody stools, Constipation, Diarrhea, Nausea, Vomiting, Difficulty Swallowing, Anorexia Genitourinary: DENIES: Sexual dysfunction, Urinary frequency, Urinary incontinence, Urgency, Hematuria, Dysuria, Nocturia, Penile Discharge, Testicular Pain, Testicular Swelling Musculoskeletal: DENIES: Joint pain, Muscle aches, Stiffness, Joint Swelling, Back pain, Neck pain Integumentary: DENIES: Abnormal pigmentation, Nail changes, Pruritus, Rash Hematologic/lymphatic: DENIES: Bruising, Lymphadenopathy Immunologic/allergic: DENIES: Eczema, Urticaria Neurologic: DENIES: Abnormal gait, Headache, Localized weakness, Paresthesias, Seizures, Speech Problems, Tremor, Poor Balance Psychiatric: COMPLAINS OF: Hallucinations, Delusions Past Family Social History Coded Allergies: aspirin (Unverified Allergy, Severe, TACHYCARDIA, 01/28/17) Active Scripts [Lactulose Liq] 30 ML SYRP No Conflict Check, 30 ML PO TID for Hyperammonemia for 15 Days, BOTTLE 1 Refill Prov:Viktor Maria MD 04/10/17 [Benztropine] 1 MG TAB No Conflict Check, 1.5 MG PO Q12HR for Side effect management for 15 Days, TAB 1 Refill Prov:Viktor Maria MD 04/10/17 Zolpidem (Ambien) 5 Mg Tab, 5 MG PO HS Y for INSOMNIA, #20 TAB 1 Refill May repeat dose x 1 in 60 minutes if needed. Prov:Viktor Maria MD 04/10/17 Haloperidol (Haloperidol) 5 Mg Tab, 12.5 MG PO BID for Mental Health for 15 Days , #75 TAB 1 Refill Discuss with your outpatient provider how best to taper off of oral Haldol now that you are on Haldol decanoate. Be sure to get your next Haldol decanoate injection. Prov:Viktor Maria MD 04/10/17 Divalproex (Divalproex ) 250 Mg Tabdr, 500 MG PO Q12HR for Mental Health for 15 Days, TAB 1 Refill Prov:Viktor Maria MD 04/10/17 Discontinued Scripts Haloperidol Decanoate Inj (Haldol Decanoate Inj) 100 Mg/Ml Inj, 250 MG IM Q28D for Mental Health, #3 VIAL 0 Refills This dose of Haldol decanoate is due on 05/01/2017. Prov:Viktor Maria MD 04/10/17 Current Medications Medications (Trade) Dose Ordered Sig/Harvey Route Start Time Stop Time Status Last Admin (Tylenol) 650 mg Q4H PRN PO 07/03/17 15:30 (Milk Of Magnesia Liq) 30 ml DAILY PRN PO 07/03/17 15:30 (Mag-Al Plus Susp Liq) 30 ml Q6H PRN PO 07/03/17 15:30 (Habitrol 21 Mg Patch.24 Hr) 1 patch DAILY T-DERMAL 07/03/17 16:00 07/07/17 08:08 Miscellaneous Information 1 DAILY T-DERMAL 07/04/17 09:00 07/07/17 08:07 (Depsolomon Munoz) 500 mg Q12HR PO 07/03/17 21:00 07/08/17 09:00 (Haldol) 12.5 mg BID PO 07/04/17 13:30 07/08/17 09:00 (Ambien) 5 mg HS PRN PO 07/04/17 11:45 07/07/17 22:36 (Cogentin) 1.5 mg Q12HR PO 07/04/17 13:45 07/08/17 09:00 (Lactulose Liq) 30 ml TID PO 07/04/17 13:45 07/08/17 12:08 (Haldol) 5 mg Q6H PRN PO 07/04/17 11:45 (Haldol Inj) 5 mg Q6H PRN IM 07/04/17 11:45 (Benadryl) 50 mg Q6H PRN PO 07/04/17 11:45 07/06/17 21:02 (Benadryl Inj) 50 mg Q6H PRN IM 07/04/17 11:45 (Ativan) 1 mg Q6H PRN PO 07/04/17 11:45 07/07/17 20:11 (Ativan Inj) 1 mg Q6H PRN IM 07/04/17 11:45 (Pill Splitter) 1 ea UNSCH PRN OTHER 07/04/17 13:45 Patient's Strengths (min. 2) In a monitored setting. Verbally fluent. Physical Exam Vital Signs Vital Signs Date Time Temp Pulse Resp B/P (MAP) Pulse Ox O2 Delivery O2 Flow Rate FiO2 07/08/17 05:54 97.4 60 18 115/75 (88) 99 Mental Status Examination Appearance: Appropriate Consciousness: Alert Orientation: x4 Motor Activity: Other (no abnormal motor movements noted. No EPS noted.) Speech: Slow Language: Adequate Fund of Knowledge: Adequate Attention and Concentration: Other (fair) Memory: Unremarkable Mood: Other (calm) Affect: Blunt Thought Process & Associations: Intact, Linear Thought Content: Hallucinations Hallucination Type: Auditory (decreasing) Delusion Type: None Suicidal Ideation: No Suicidal Plan: No Suicidal Intention: No Homicidal Ideation: No Homicidal Plan: No Homicidal Intention: No Insight: Poor Judgment: Poor Assessment & Plan Problem List: (1) Schizophrenia, paranoid type ICD Codes: F20.0 - Paranoid schizophrenia Status: Acute (2) Noncompliance with medication regimen ICD Codes: Z91.14 - Patient's other noncompliance with medication regimen Assessment & Plan: I have seen and examined this patient for involuntary outpatient psychiatric care. Reviewed of documentation. I agree and concur with Dr. Maria assessment and plan. Consult appreciated. Assessment & Plan Estimated LOS: days Request HC Surrog/Guard Advoc?: No Bear Lopez MD Jul 08, 2017 12:16
--- NOTE | 2017-07-08 12:40 | HHI.PYPN ---
Subjective Chief Complaint: Psychosis Remarks Patient seen and examined with nurse. Chart reviewed. I note that the patient is eating all of his meals and slept 6 hours overnight. Case discussed with nursing staff reports the patient is keeping to himself and denying audiovisual hallucinations. Case discussed in treatment team. On my examination today, the patient denies suicidal or homicidal ideation. He endorses hearing a voice saying that the KKK is coming to kill him. No CAH. He complains of feeling "cooped up" on the unit, but nurse tells me that the patient has been refusing activities like fresh air that would take him off the unit. I have recommended titration of antipsychotic to target complaints of AH, but patient declines this. He would like to be discharged and says that he will file an ROR. No side effects from medications. No physical complaints. Review of Systems ROS Limitations: Psychotic, Poor Historian Except as stated in HPI: all other systems reviewed are Neg Mental Status Examination Appearance: Appropriate Consciousness: Alert Orientation: Person, Place (at least) Motor Activity: Other (no motor abnormalities noted) Speech: Unremarkable Language: Adequate Fund of Knowledge: Adequate Attention and Concentration: Other (fair) Memory: Unremarkable Mood: Other (dysphoric) Affect: Blunt Thought Process & Associations: Intact, Linear Thought Content: Hallucinations Hallucination Type: Auditory (as above) Delusion Type: None Suicidal Ideation: No Suicidal Plan: No Suicidal Intention: No Homicidal Ideation: No Homicidal Plan: No Homicidal Intention: No Insight: Poor Judgment: Poor Results Labs Labs reviewed. Lab apparently did not come to draw pre-dose Depakote level, and it got so late in the morning that dose of VPA could no longer be held without significantly disrupting regimen. I will reorder VPA level for tomorrow morning. Vitals/IOs Vital Signs Date Time Temp Pulse Resp B/P (MAP) Pulse Ox O2 Delivery O2 Flow Rate FiO2 07/08/17 05:54 97.4 60 18 115/75 (88) 99 Assessment & Plan Problem List: (1) Schizophrenia, paranoid type ICD Codes: F20.0 - Paranoid schizophrenia Status: Acute (2) Noncompliance with medication regimen ICD Codes: Z91.14 - Patient's other noncompliance with medication regimen Assessment & Plan Patient refusing med change today despite reported AH. I will continue current psychotropics as ordered and revisit this with him tomorrow. Tomorrow is also the earliest patient could receive booster dose of Haldol Dec. Continue to monitor on the inpatient unit. Encouraged participation in groups and unit activities. Continue other medications and care as ordered. Justification for Cont. Inpt. Impairment in reality construction. High risk for decompensation in less restrictive environment. Discharge Planning Pending psychiatric stabilization. Petition for outpatient commitment completed. Request HC Surrog/Guard Advoc?: No Viktor Maria MD Jul 08, 2017 12:40
[2017-07-08 18:32] VITALS: BP 121/77; PULSE 65; RESP 17; TEMP 97.8; O2SAT 98
[2017-07-08] MEDS ORDERED: ERGOCALCIFEROL (VIT D2) 50,000 UNIT CAP PO SCH (21:00)
[2017-07-08] MEDS: ZOLPIDEM TARTRATE 5 MG TAB PO PRN ×2 (21:38→22:05)
[2017-07-09 05:36] VITALS: BP 105/57; PULSE 53; RESP 18; TEMP 97.4; O2SAT 98
[2017-07-09 06:24] VITALS: BP 105/57; PULSE 53; RESP 18; TEMP 97.4; O2SAT 98
[2017-07-09] MEDS: NICOTINE 21 MG/24 HR PATCH T-DERMAL SCH (09:00)
[2017-07-09] MEDS: DIVALPROEX SODIUM DELAYED RELEASE 250 MG TAB PO SCH ×2 (09:00→21:00)
[2017-07-09] MEDS: REMOVE OLD PATCH T-DERMAL SCH (09:00)
[2017-07-09] MEDS: BENZTROPINE MESYLATE 1 MG TAB PO SCH ×2 (09:11→21:00)
[2017-07-09] MEDS: HALOPERIDOL 5 MG TAB PO SCH ×2 (09:12→21:00)
[2017-07-09] MEDS: LACTULOSE SYRUP 20 GM/30 ML CUP PO SCH ×3 (09:13→18:00)
--- NOTE | 2017-07-09 14:02 | HHI.PYPN ---
Subjective Chief Complaint: Psychosis Remarks Patient seen and examined with nurse. Chart reviewed. Patient has completed a right of release set to at 12:44pm. Case discussed with nursing staff. Patient reportedly seclusive to room but denying auditory hallucinations. He has been noted to appear to be internally stimulated per nursing staff. On my examination today, the patient is somewhat irritable. He denies any issues with mood however. He denies any audiovisual hallucinations but remains internally preoccupied. He denies any suicidal or homicidal ideation. He denies side effects from medications. He flatly refuses any further medication adjustment, despite my recommendation to the contrary. He has no physical complaints. He is agreeable to remaining on the inpatient unit for further observation and rescinds the right of release at 12:31pm. Patient's mother is reportedly requesting a call, and I have asked the nurse to obtain as signed SERENE from patient for mother. Review of Systems ROS Limitations: Psychotic Except as stated in HPI: all other systems reviewed are Neg Mental Status Examination Appearance: Appropriate Consciousness: Alert Orientation: Person, Place (at least) Motor Activity: Other (no abnormal motor movements noted) Speech: Unremarkable Language: Adequate Fund of Knowledge: Adequate Attention and Concentration: Other (fair) Memory: Unremarkable Mood: Other (Denies issues with mood) Affect: Irritable Thought Process & Associations: Intact, Linear Thought Content: Hallucinations Hallucination Type: Auditory (remains somewhat internally stimulated) Delusion Type: None Suicidal Ideation: No Suicidal Plan: No Suicidal Intention: No Homicidal Ideation: No Homicidal Plan: No Homicidal Intention: No Insight: Poor Judgment: Poor Results Labs Test 07/09/17 11:07 Ammonia 57 MCMOL/L Valproic Acid (Depakene) Level 60 MCG/ML Labs reviewed. Depakote level within the therapeutic range. Ammonia level slightly elevated without any evidence of hyperammonemic encephalopathy. Vitals/IOs Vital Signs Date Time Temp Pulse Resp B/P (MAP) Pulse Ox O2 Delivery O2 Flow Rate FiO2 07/09/17 06:24 97.4 53 18 105/57 (73) 98 Assessment & Plan Problem List: (1) Schizophrenia, paranoid type ICD Codes: F20.0 - Paranoid schizophrenia Status: Acute (2) Noncompliance with medication regimen ICD Codes: Z91.14 - Patient's other noncompliance with medication regimen Assessment & Plan Add Carnitor for hyperammonemia. Plan to recheck ammonia level within the week , inpatient versus outpatient. Continue current psychotropics as ordered; patient is refusing med adjustment although I have recommended this to him for his ongoing psychiatric symptoms. In particular, patient refuses additional Haldol Dec. Continue to monitor on inpatient unit. Continue other meds and care as ordered. Call to mother once signed SERENE has been obtained. Justification for Cont. Inpt. Impairment in reality construction. Discharge Planning Outpatient commitment hearing tomorrow. Request HC Surrog/Guard Advoc?: No Viktor Maria MD Jul 09, 2017 14:02
[2017-07-09 18:00] VITALS: BP 118/76; PULSE 82; RESP 18; TEMP 97.8; O2SAT 98
[2017-07-09] MEDS: levOCARNitine 10% ORAL SOLN 118 ML BTL PO SCH (21:00)
[2017-07-09] MEDS: ZOLPIDEM TARTRATE 5 MG TAB PO PRN (22:35)
[2017-07-10 05:23] VITALS: BP 106/53; PULSE 55; RESP 16; TEMP 98; O2SAT 98
[2017-07-10] MEDS: REMOVE OLD PATCH T-DERMAL SCH (09:00)
[2017-07-10] MEDS: NICOTINE 21 MG/24 HR PATCH T-DERMAL SCH (09:00)
[2017-07-10] MEDS: levOCARNitine 10% ORAL SOLN 118 ML BTL PO SCH (09:00)
[2017-07-10] MEDS: BENZTROPINE MESYLATE 1 MG TAB PO SCH (09:12)
[2017-07-10] MEDS: DIVALPROEX SODIUM DELAYED RELEASE 250 MG TAB PO SCH (09:13)
[2017-07-10] MEDS: LACTULOSE SYRUP 20 GM/30 ML CUP PO SCH (09:13)
[2017-07-10] MEDS: HALOPERIDOL 5 MG TAB PO SCH (09:13)
[2017-07-10] MEDS ORDERED: Lactulose Liq PO (12:03)
[2017-07-10] MEDS ORDERED: Benztropine PO (12:03)
[2017-07-10] MEDS ORDERED: HALO100P IM (12:03)
[2017-07-10] MEDS ORDERED: VITA500012 PO (12:03)
[2017-07-10] MEDS ORDERED: DIVA250T PO (12:03)
[2017-07-10] MEDS ORDERED: HALO5TAB PO (12:03)
--- NOTE | 2017-07-10 12:03 | HHI.DS ---
Psychiatry Discharge Summary Inpatient Psychiatric care?: Yes Advance Directive: No Reason Not Provided: DEFERRED Mental Health AdvanceDirective: No Health Care Proxy: No Admission Admission Date Jul 03, 2017 at 15:31 Admission Diagnosis: (1) Schizophrenia, paranoid type ICD Code: F20.0 - Paranoid schizophrenia (2) Noncompliance with medication regimen ICD Code: Z91.14 - Patient's other noncompliance with medication regimen Brief History Mr. Gay is a 22-year-old male with a history of schizophrenia who presented to the ED voluntarily with complaints of command auditory hallucinations to self injure per the ED provider's note. The patient was evaluated by the psychiatric nurse practitioner in the emergency department and placed on a [place] act. Collateral was obtained from patient's mother by the psychiatric nurse practitioner. Patient is well known to the psychiatric service here from previous psychiatric admissions and was admitted most recently under my care in March of last year, at which time he was stabilized on Haldol Decanoate 250 mg IM as well as Depakote 500 mg twice daily. Electronic medical record reviewed.Patient seen and examined with nurse and nursing students. Chart reviewed. Case discussed with nursing staff. Patient was apparently agitated and screaming overnight and was medicated at around 5 AM this morning with Haldol and Ativan IM. On my examination today, the patient is consequently somewhat sedated. He is able to awaken for a brief interview. He tells me that he is hearing "voices and hearing the devil." He says that this has been going on for "a long time" apparently several months. He has apparently been nonadherent with his psychotropic medications since leaving the hospital last time. He says that the devil was telling him "I'm possessed of some kind of demon." He does not describe any command auditory hallucinations to self injure at this time. He denies any suicidal or homicidal ideation. He also endorses visual hallucinations of "red devils." Sleep and appetite are reportedly fair. Personal hygiene is somewhat impaired, and the patient is fairly disheveled and malodorous. Affect is somewhat dysphoric. No depressive or hypomanic/manic symptoms reported. He denies any substance use prior to admission. Psychiatric interview is limited because the patient is presently fairly sleepy following medication this morning. No physical complaints. Unable to obtain any past psychiatric, family, poor social history from the patient because of current mental status. Tobacco Use In Past 30 Days: 5 or More Cigarettes/Day Alcohol Use: Never Hospital Course Patient was admitted to a locked, inpatient psychiatric unit. Appropriate precautions were in place throughout patient's hospital stay. Patient was seen and examined on the unit by psychiatry and also visited by counselor. Psychotropic medications were adjusted. Patient was started on long-acting injectable Haldol Decanoate but refused to receive the balance of the dose as I had recommended. He was accepting of oral psychotropics, although I question his commitment to medication adherence outside of the hospital setting. There was no evidence of any suicidality or homicidality on the inpatient unit. The patient's behavior improved with the benefit of pharmacologic treatment, and he was uneventfully transferred from the higher acuity unit to the lower acuity unit. A petition for involuntary outpatient commitment was initiated to try to improve patient's medication adherence in the community, but this petition was unfortunately denied by the digital artist. On the day of discharge: Patient seen and examined with nurse. Chart reviewed. Case discussed with nursing staff. Patient noted to be in good behavioral control. On my examination today, the patient denies any suicidal or homicidal ideation, intent or plan on direct questioning and contracts for safety. He is requesting discharge from the inpatient psychiatric unit today. I can elicit no depressive or hypomanic/ manic symptoms. He denies any audiovisual hallucinations but does appear a little internally preoccupied. No delusions elicited. No side effects from medications. No physical complaints. Weighing the relevant factors and based on the available information, I digital artist that the patient does not presently meet criteria for involuntary psychiatric hospitalization. I have no basis to retain the patient on the inpatient unit over his objection. I have strongly recommended that he remain on the inpatient unit for further medication and stabilization, but he declines any further medication adjustment and insists upon discharge today. I will therefore discharge him AGAINST MEDICAL ADVICE. I have explained to the patient that he is leaving AGAINST MEDICAL ADVICE. Psychiatric follow-up as arranged by counselor. Patient is also to follow-up with primary care. I have counseled the patient regarding warning signs for need to return to the psychiatric emergency room as part of a general safety plan. Results Blood Pressure 106 / 53 Vital Signs Date Time Temp Pulse Resp B/P (MAP) Pulse Ox O2 Delivery O2 Flow Rate FiO2 07/10/17 05:23 98.0 55 16 106/53 (70) 98 Laboratory Tests Test 07/09/17 11:07 Ammonia 57 MCMOL/L (11-32) Laboratory Results Test 07/04/17 09:32 07/09/17 11:07 Cholesterol Level 152 MG/DL (120-200) HDL Cholesterol 57.0 MG/DL (40.0-60.0) Hemoglobin A1c 5.4 % (4.3-6.0) LDL Cholesterol 79 MG/DL (0-99) Triglycerides Level 80 MG/DL (42-150) Valproic Acid (Depakene) Level 60 MCG/ML (50-100) Summary of Procedures None done Imaging None done Pending results at discharge: No Medications # of Antipsychotic meds at D/C: 1 Approp Antipsych med options 1 - Minimum of three failed multiple trials of monotherapy. 2 - Documented plan to taper to monotherapy due to previous use of multiple meds OR cross-taper in progress at D/C. 3 - Documentation of augmentation of Clozapine. 4 - Justification other than those listed in allowable values 1-3, document here : Discharge Discharge Date: Jul 10, 2017 Discharge Diagnosis: (1) Schizophrenia, paranoid type Diagnosis: Principal ICD Code: F20.0 - Paranoid schizophrenia Status: Acute (2) Noncompliance with medication regimen Diagnosis: Secondary ICD Code: Z91.14 - Patient's other noncompliance with medication regimen Pt Condition on Discharge: Guarded (AMA discharge) Discharge Disposition: Discharge Home Discharge Instructions Diet Instructions: As Tolerated, No Restrictions Activities you can perform: Weight Bearing as Maged Scheduled Appointment: Roland Matson Appointment Date: Jul 11, 2017 Appointment Time: 7:30 a.m New Orders: AMMONIA - 2-3 Days VITAMIN D,25-HYDROXY - 2 Months New Medications: Haloperidol Decanoate Inj (Haldol Decanoate Inj) 100 Mg/Ml Inj 100 MG IM Q28D for Schizophrenia, #1 VIAL 0 Refills This dose of Haldol Dec is due on 08/02/17. I have recommended a higher dose, but this is what you were willing to accept. Ergocalciferol (Ergocalciferol) 50,000 Unit Cap 85384 UNITS PO Q7D for Low vitamin D for 7 Days, CAP 0 Refills [Lactulose Liq] () 30 ML SYRP 30 ML PO TID for Hyperammonemia for 10 Days, 2 Refills Changed Medications: Haloperidol (Haloperidol) 5 Mg Tab 12.5 MG PO BID for Mental Health for 10 Days, #50 TAB 2 Refills (Changed from: 75; 15; Refills: 1; Discuss with your outpatient provider how best to taper off of oral Haldol now that you are on Haldol decanoate. Be sure to get your next Haldol decanoate injection.) Be sure to get your next Haldol decanoate injection. [Benztropine] () 1 MG TAB 1.5 MG PO Q12HR for Side effect management for 10 Days, TAB 2 Refills (Changed from: [Benztropine] (Cogentin) 1 MG TAB 1.5 Mg PO Q12HR Side effect management 15 Days TAB Ref 1) Continued Medications: Divalproex DR (Divalproex DR) 250 Mg Tabdr 500 MG PO Q12HR for Mental Health for 10 Days, TAB 2 Refills (This prescription has been renewed) Zolpidem (Ambien) 5 Mg Tab 5 MG PO HS PRN for INSOMNIA, #20 TAB 1 Refill May repeat dose x 1 in 60 minutes if needed. Discontinued Medications: [Lactulose Liq] () 30 ML SYRP 30 ML PO TID for Hyperammonemia for 15 Days, BOTTLE 1 Refill Discharge Time > 30 minutes Mental Status Examination Appearance: Appropriate Consciousness: Alert Orientation: Person, Place, Date/Time (approx), Situation Motor Activity: Normal gait, Other (no motor abnormalities appreciated) Speech: Unremarkable Language: Adequate Fund of Knowledge: Adequate Attention and Concentration: Other (fair) Memory: Unremarkable Mood: Other (calm) Affect: Blunt Thought Process & Associations: Intact, Linear Thought Content: Appropriate Hallucination Type: Other (denies AVH but appears somewhat internally stimulated) Delusion Type: None Suicidal Ideation: No Suicidal Plan: No Suicidal Intention: No Homicidal Ideation: No Homicidal Plan: No Homicidal Intention: No Insight: Poor (chronic condition) Judgment: Poor (chronic condition) Discharge/Advance Care Plan Health Problems: (1) Schizophrenia, paranoid type (2) Noncompliance with medication regimen Goals to promote your health * To prevent worsening of your condition and complications * To maintain your health at the optimal level Directions to meet your goals Take your medications as prescribed Follow your dietary instruction Follow activity as directed Keep your appointments as scheduled Take your immunizations and boosters as scheduled If your symptoms worsen call your PCP, if no PCP go to Urgent Care Center or Emergency Room For 06/01 questions related to your inpatient stay or results of tests pending at discharge, please contact Dr. Viktor Maria at Smoking is Dangerous to Your Health. Avoid second hand smoking Viktor Maria MD Jul 10, 2017 12:03
== END 2017-07-10 13:40 | disposition left against medical advice (07) | DRG 885 ==
LOC: NEPD 17:24 → NEDA 07-03 15:31 → H270 07-03 17:17 → H260 07-08 21:30
PROVIDERS: ADMIT Psychiatry & Neurology Psychiatry; ATTEND Psychiatry & Neurology Psychiatry
DX: F20.0 Paranoid schizophrenia (principal); E72.20 Disorder of urea cycle metabolism, unspecified; F17.210 Nicotine dependence, cigarettes, uncomplicated; F31.9 Bipolar disorder, unspecified; J45.909 Unspecified asthma, uncomplicated; F41.9 Anxiety disorder, unspecified; Z91.14 Patient's other noncompliance with medication regimen
CPT/HCPCS: 80048; 80053; 80061; 80164; 80307; 82140; 82306; 82607; 83036; 85025; 93005; 96372; J1200; J1630; J1631; J2060; Q0163

== ENCOUNTER 2017-10-04 01:00 | Inpatient (IN) | payer OTHER ==
[~2017-10-04] VITALS: Ht 167.6 cm; Wt 67.5 kg
[~2017-10-04 01:00] MED LIST changes: +VITA500012 PO
[2017-10-04 01:10] VITALS: BP 126/63; PULSE 108; RESP 18; TEMP 98.6; O2SAT 99
[2017-10-04 01:36] LABS: AUTOMATED NEUTROPHIL # 5.2 TH/MM3 (1.8-7.7); BASOPHIL # 0.1 TH/MM3 (0-0.2); BASOPHIL % 1.1 % (0.0-2.0); EOSINOPHIL # 0.4 TH/MM3 (0-0.4); EOSINOPHIL % 3.9 % (0.0-4.0); HEMATOCRIT 42.5 % (39.0-51.0); HEMOGLOBIN 14.4 GM/DL (13.0-17.0); LYMPH % 37.6 % (9.0-44.0); LYMPHOCYTE # 3.9 TH/MM3 (1.0-4.8); MEAN CELL VOLUME 81.5 FL (80.0-100.0); MEAN CORPUSCULAR HEMOGLOBIN 27.7 PG (27.0-34.0); MEAN PLATELET VOLUME 7.9 FL (7.0-11.0); MONO % 6.8 % (0.0-8.0); MONOCYTE # 0.7 TH/MM3 (0-0.9); NEUT % 50.6 % (16.0-70.0); PLATELET COUNT 286 TH/MM3 (150-450); RED BLOOD COUNT 5.22 MIL/MM3 (4.50-5.90); RED CELL DISTRIBUTION WIDTH 13.1 % (11.6-17.2); WHITE BLOOD COUNT 10.3 TH/MM3 (4.0-11.0)
[2017-10-04 01:47] LABS: ALBUMIN 3.9 GM/DL (3.4-5.0); AST (GOT) 12 U/L (15-37); BICARBONATE 24.2 MEQ/L (21.0-32.0); BLOOD UREA NITROGEN 11 MG/DL (7-18); CALCIUM 8.9 MG/DL (8.5-10.1); CHLORIDE 110 MEQ/L (98-107); CREATININE 0.92 MG/DL (0.60-1.30); GLOMERULAR FILTRATION RATE 124 ML/MIN (>89); GLUCOSE,RANDOM 84 MG/DL (74-106); SODIUM (NA) 142 MEQ/L (136-145)
[2017-10-04 01:58] LABS: ALKALINE PHOSPHATASE 80 U/L (45-117); ALT (GPT) 17 U/L (12-78); TOTAL BILIRUBIN ADULT 0.2 MG/DL (0.2-1.0); TOTAL PROTEIN 7.8 GM/DL (6.4-8.2)
[2017-10-04 02:00] LABS: ACETAMINOPHEN LESS THAN 2.0 MCG/ML (10.0-30.0)
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
[2017-10-04 06:21] VITALS: BP 124/56; PULSE 94; RESP 18; TEMP 98.4; O2SAT 97
[2017-10-04] MEDS ORDERED: BUSP5TAB PO (08:41)
[2017-10-04] MEDS ORDERED: BENZ0.5T PO (08:41)
[2017-10-04] MEDS ORDERED: HALO5TAB PO (08:41)
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
[2017-10-04] MEDS ORDERED: ALUMINUM/MAGNESIUM/SIMETH 30 ML CUP PO PRN (10:00)
[2017-10-04] MEDS ORDERED: ACETAMINOPHEN 325 MG TAB PO PRN (10:00)
[2017-10-04] MEDS ORDERED: LORazepam 2 MG/ML VIAL IM PRN (10:00)
[2017-10-04] MEDS ORDERED: BENZTROPINE MESYLATE 1 MG TAB PO PRN (10:00)
[2017-10-04] MEDS ORDERED: BENZTROPINE MESYLATE 2 MG/2 ML VIAL IM PRN (10:00)
[2017-10-04] MEDS ORDERED: MAGNESIUM HYDROXIDE SUSP 30 ML CUP PO PRN (10:00)
[2017-10-04] MEDS: REMOVE OLD PATCH T-DERMAL SCH (11:00)
[2017-10-04] MEDS ORDERED: NICOTINE 21 MG/24 HR PATCH T-DERMAL PRN (11:00)
[2017-10-04 12:33] VITALS: BP 130/65; PULSE 93; RESP 17; TEMP 97.4; O2SAT 98
[2017-10-04] MEDS: busPIRone HCL 5 MG TAB PO SCH ×2 (13:56→17:31)
[2017-10-04] MEDS: HALOPERIDOL 5 MG TAB PO SCH ×2 (13:56→17:31)
[2017-10-04] MEDS: BENZTROPINE MESYLATE 1 MG TAB PO SCH (20:23)
[2017-10-05 06:00] VITALS: BP 114/58; PULSE 70; RESP 16; TEMP 97.1; O2SAT 97
[2017-10-05] MEDS: REMOVE OLD PATCH T-DERMAL SCH (09:00)
[2017-10-05] MEDS: busPIRone HCL 5 MG TAB PO SCH ×3 (09:05→17:56)
[2017-10-05] MEDS: BENZTROPINE MESYLATE 1 MG TAB PO SCH ×2 (09:05→21:07)
[2017-10-05] MEDS: HALOPERIDOL 5 MG TAB PO SCH ×3 (09:05→17:56)
--- NOTE | 2017-10-05 13:21 | HHI.PYPN ---
Subjective Chief Complaint: Psychosis Remarks Patient was seen and case discussed with nursing. Patient continues to be agitated and internally preoccupied. He was noted by the tech to be talking to himself and angrily punched the air. He refused his lab work this morning. He is angry at the world does not understand why it "keeps offending him." He denies any access to guns or weapons. He remains very angry at his stepdad. He does admit to auditory hallucinations telling him nasty, mean things. Patient says he was compliant at home Mental Status Examination Appearance: Disheveled, Malodorous Consciousness: Alert Orientation: Person, Place (At least) Motor Activity: Other (No motor abnormalities noted) Speech: Slow Language: Adequate Fund of Knowledge: Adequate (Fair) Attention and Concentration: Easily Distracted Memory: Impaired (Psychosis interferes) Mood: Other ("Pretty good") Affect: Blunt Thought Process & Associations: Other (Somewhat slowed) Thought Content: Bizarre thinking, Thought blocking Hallucination Type: Auditory (Nasty, mean things), Other (AVH of demons. No reported CAH.) Delusion Type: Paranoid Suicidal Ideation: No Suicidal Plan: No Suicidal Intention: No Homicidal Ideation: No Homicidal Plan: No Homicidal Intention: No Results Vitals/IOs Vital Signs Date Time Temp Pulse Resp B/P (MAP) Pulse Ox O2 Delivery O2 Flow Rate FiO2 10/04/17 12:33 97.4 93 17 130/65 (86) 98 10/04/17 06:21 Room Air Assessment & Plan Problem List: (1) Schizophrenia, paranoid type ICD Codes: F20.0 - Paranoid schizophrenia Status: Acute Assessment & Plan Haldol does not appear to be helping the patient and he is already on a reasonable dose. Consider changing to another agent Justification for Cont. Inpt. Patient would decompensate in a less restrictive setting Request HC Surrog/Guard Advoc?: No Hema Pearl DO Oct 05, 2017 13:21
[2017-10-05 16:01] VITALS: BP 123/62; PULSE 82; RESP 17; TEMP 97.2; O2SAT 98
[2017-10-05] MEDS: LORazepam 1 MG TAB PO PRN (23:23)
[2017-10-05] MEDS: diphenhydrAMINE HCL 50 MG CAP PO PRN (23:23)
[2017-10-06 06:32] VITALS: BP 106/64; PULSE 80; RESP 17; TEMP 98; O2SAT 100
[2017-10-06] MEDS: HALOPERIDOL 5 MG TAB PO SCH (08:22)
[2017-10-06] MEDS: busPIRone HCL 5 MG TAB PO SCH ×3 (08:22→17:52)
[2017-10-06] MEDS: BENZTROPINE MESYLATE 1 MG TAB PO SCH ×2 (08:22→21:13)
[2017-10-06] MEDS: REMOVE OLD PATCH T-DERMAL SCH (09:00)
[2017-10-06 09:01] LABS: CHOLESTEROL 143 MG/DL (120-200); TRIGLYCERIDES 77 MG/DL (42-150)
[2017-10-06 09:05] LABS: CHOLESTEROL/ HDL RATIO 2.75 RATIO; LDL CHOLESTEROL 76 MG/DL (0-99)
--- NOTE | 2017-10-06 10:29 | HHI.PYPN ---
Subjective Chief Complaint: Psychosis Remarks Patient seen and examined with nurse. Chart reviewed. Case discussed with nursing staff. On my examination today, the patient exhibits thought blocking and poverty of thought. When I ask about his mood he gives me the thumbs up sign. He denies SI or HI. Denies AVH but remained somewhat internally preoccupied. Denies side effects from medications. No physical complaints. Review of Systems ROS Limitations: Psychotic, Poor Historian Except as stated in HPI: all other systems reviewed are Neg Mental Status Examination Appearance: Disheveled Consciousness: Alert Orientation: Person, Place (At least) Motor Activity: Other (No abnormal motor movements noted) Speech: Slow Language: Adequate Fund of Knowledge: Adequate (Fair) Attention and Concentration: Easily Distracted Memory: Impaired (Psychosis interferes) Mood: Other (thumbs up) Affect: Blunt Thought Process & Associations: Intact Thought Content: Thought blocking Hallucination Type: Other (Internally preoccupied) Delusion Type: None Suicidal Ideation: No Suicidal Plan: No Suicidal Intention: No Homicidal Ideation: No Homicidal Plan: No Homicidal Intention: No Mental Status Exam Remarks Insight and judgment are fair to poor at best Results Labs Test 10/06/17 07:20 Triglycerides Level 77 MG/DL Cholesterol Level 143 MG/DL LDL Cholesterol 76 MG/DL HDL Cholesterol 52.0 MG/DL Cholesterol/HDL Ratio 2.75 RATIO Labs reviewed Vitals/IOs Vital Signs Date Time Temp Pulse Resp B/P (MAP) Pulse Ox O2 Delivery O2 Flow Rate FiO2 10/06/17 06:32 98.0 80 17 106/64 (78) 100 10/04/17 06:21 Room Air Assessment & Plan Problem List: (1) Schizophrenia, paranoid type ICD Codes: F20.0 - Paranoid schizophrenia Status: Acute Assessment & Plan Titrate Haldol to 10 mg twice daily to target psychosis. Continue other psychotropics as ordered. Continue to monitor on the inpatient unit. Continue other medications and care as ordered. Justification for Cont. Inpt. Medication changes. Risk for decompensation in less restrictive environment. Discharge Planning Pending psychiatric stabilization Request HC Surrog/Guard Advoc?: No Viktor Maria MD Oct 06, 2017 10:29
[2017-10-06 17:06] LABS: HEMOGLOBIN A1C 5.1 % (4.3-6.0)
[2017-10-06] MEDS ORDERED: HALOPERIDOL 5 MG TAB PO SCH (21:00)
[2017-10-07 06:17] VITALS: BP 105/57; PULSE 71; RESP 18; TEMP 96.8; O2SAT 99
[2017-10-07] MEDS: REMOVE OLD PATCH T-DERMAL SCH (09:00)
--- NOTE | 2017-10-07 09:53 | HHI.PYPN ---
Subjective Chief Complaint: Psychosis Remarks Patient seen and examined with nurse. Chart reviewed. Case discussed with nursing staff who reports patient slept poorly overnight, almost as if he was trying to keep himself awake. Case discussed in treatment team. On my examination today, the patient seems quite sleepy. He has not yet received his morning medication per nursing. He does admit to poor sleep, and we discuss adjusting psychotropic to place the bulk of the dose at night. No SI/HI. Remains quite hypoverbal and flat. No side effects from medications. No physical complaints. Review of Systems ROS Limitations: Poor Historian Except as stated in HPI: all other systems reviewed are Neg Mental Status Examination Appearance: Disheveled Consciousness: Alert Orientation: Person, Place (At least) Motor Activity: Other (No motoric abnormalities noted) Speech: Hesitant, Slow Language: Adequate Fund of Knowledge: Adequate (Fair) Attention and Concentration: Adequate Memory: Unremarkable (Grossly intact) Mood: Other (Calm) Affect: Flat Thought Process & Associations: Intact Thought Content: Thought blocking Hallucination Type: None Delusion Type: None Suicidal Ideation: No Suicidal Plan: No Suicidal Intention: No Homicidal Ideation: No Homicidal Plan: No Homicidal Intention: No Mental Status Exam Remarks Insight and judgment unchanged Results Labs Labs reviewed Vitals/IOs Vital Signs Date Time Temp Pulse Resp B/P (MAP) Pulse Ox O2 Delivery O2 Flow Rate FiO2 10/07/17 06:17 96.8 71 18 105/57 (73) 99 10/04/17 06:21 Room Air Assessment & Plan Problem List: (1) Schizophrenia, paranoid type ICD Codes: F20.0 - Paranoid schizophrenia Status: Acute Assessment & Plan Adjust Haldol dosing to 5 mg in the morning and 15 mg at bedtime to try to improve sleep quality. Continue other psychotropics as ordered. Continue to monitor on the inpatient unit. Continue other medications and care as ordered. Justification for Cont. Inpt. Med changes. Risk for decompensation in less restrictive environment. Discharge Planning Pending psychiatric stabilization Request HC Surrog/Guard Advoc?: No Viktor Maria MD Oct 07, 2017 09:53
[2017-10-07] MEDS: busPIRone HCL 5 MG TAB PO SCH ×3 (10:10→20:17)
[2017-10-07] MEDS: BENZTROPINE MESYLATE 1 MG TAB PO SCH ×2 (10:11→20:16)
[2017-10-07] MEDS: HALOPERIDOL 5 MG TAB PO SCH (10:50)
[2017-10-07] MEDS: LORazepam 1 MG TAB PO PRN ×2 (13:45→20:20)
[2017-10-07 18:16] VITALS: BP 135/76; PULSE 68; RESP 18; TEMP 98.2; O2SAT 99
[2017-10-07] MEDS: diphenhydrAMINE HCL 50 MG CAP PO PRN (20:17)
[2017-10-07] MEDS ORDERED: HALOPERIDOL 5 MG TAB PO SCH (21:00)
[2017-10-08 05:41] VITALS: BP 115/65; PULSE 72; RESP 18; TEMP 98.4; O2SAT 98
[2017-10-08] MEDS: BENZTROPINE MESYLATE 1 MG TAB PO SCH (08:34)
[2017-10-08] MEDS: busPIRone HCL 5 MG TAB PO SCH ×2 (08:34→13:00)
[2017-10-08] MEDS: HALOPERIDOL 5 MG TAB PO SCH (08:34)
[2017-10-08] MEDS: REMOVE OLD PATCH T-DERMAL SCH (08:34)
[2017-10-08] MEDS ORDERED: BUSP5TAB PO (08:36)
[2017-10-08] MEDS ORDERED: Benztropine PO (08:36)
[2017-10-08] MEDS ORDERED: HALO5TAB PO ×2 (08:36)
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
== END 2017-10-08 14:45 | disposition home or self-care (01) | DRG 885 ==
LOC: NEPJ 01:00 → NEDA 09:21 → H270 11:38
PROVIDERS: ADMIT Psychiatry & Neurology Psychiatry; ATTEND Psychiatry & Neurology Psychiatry
DX: F20.0 Paranoid schizophrenia (principal); F17.210 Nicotine dependence, cigarettes, uncomplicated
CPT/HCPCS: 80053; 80061; 80307; 83036; 84443; 85025; 99285; Q0163

== ENCOUNTER 2017-11-21 17:38 | Inpatient (IN) | payer MEDICAID, OTHER ==
[~2017-11-21] VITALS: Ht 167.6 cm; Wt 65.8 kg
[~2017-11-21 17:38] MED LIST changes: -AMBI5TAB PO; +BUSP5TAB PO; -DIVA250T PO; -HALO100P IM; -Lactulose Liq PO; -VITA500012 PO
[2017-11-21 17:45] VITALS: BP 141/88; PULSE 97; RESP 16; TEMP 98; O2SAT 98
[2017-11-21 18:24] VITALS: BP 147/88; PULSE 102; RESP 18; TEMP 97.8; O2SAT 96
--- NOTE | 2017-11-21 18:52 | PD ---
HPI Chief Complaint: Psychiatric Symptoms Time Seen by Provider: 18:47 Travel History International Travel<30 days: No Contact w/Intl Traveler<30days: No Traveled to known affect area: No History of Present Illness HPI 22-year-old -[place] male with long history of schizophrenia, presents emergency department voluntarily with reports of auditory hallucinations and anxiety. Patient was apparently thrown out of his house today by his mother. She normally gives in his meds. It is reported that he has been hitting merida at home. Patient denies any acute medical issues currently. He is however a poor historian, and appears to be reacting to internal stimuli. PFSH Past Medical History ADHD: No Arthritis: No Asthma: Yes Autoimmune Disease: No Bipolar Disorder: Yes Anxiety: Yes Depression: Yes Heart Rhythm Problems: No Cancer: No Cardiovascular Problems: No High Cholesterol: No Chemotherapy: No Chest Pain: No Congestive Heart Failure: No COPD: No Cerebrovascular Accident: No Diabetes: No Diminished Hearing: No Endocrine: No Gastrointestinal Disorders: No GERD: No Genitourinary: No Headaches: No Hiatal Hernia: No Heparin Induced Thrombocytopen: No Hypertension: No Immune Disorder: No Implanted Vascular Access Dvce: No Kidney Stones: No Musculoskeletal: No Neurologic: No Psychiatric: Yes Reproductive: No Respiratory: Yes Immunizations Current: Yes Migraines: No Radiation Therapy: No Schizophrenia: Yes Seizures: No Sickle Cell Disease: No Sleep Apnea: No Thyroid Disease: No Ulcer: No PNEUMOCCOCAL Vaccine (Year): 1 Past Surgical History Abdominal Surgery: No AICD: No Arteriovenous Shunt: No Cardiac Surgery: No Ear Surgery: No Endocrine Surgery: No Eye Surgery: No Genitourinary Surgery: No Gynecologic Surgery: No Insulin Pump: No Joint Replacement: No Neurologic Surgery: No Oral Surgery: No Pacemaker: No Thoracic Surgery: No Other Surgery: No (ed admit-none known) Social History Alcohol Use: No (DENIES) Tobacco Use: Yes (4 CIGS A DAY) Substance Use: No (DENIES) Allergies-Medications (Allergen,Severity, Reaction): Coded Allergies: aspirin (Unverified Allergy, Severe, TACHYCARDIA, 01/28/17) Reported Meds & Prescriptions Reported Meds & Active Scripts Active [Benztropine] 1 MG Tab 1 Mg PO Q12HR 15 Days Buspirone (Buspirone HCl) 5 Mg Tab 5 Mg PO TID 15 Days Haloperidol 5 Mg Tab 5 Mg PO DAILY 15 Days Haloperidol 5 Mg Tab 15 Mg PO HS 15 Days Review of Systems ROS Limitations: Psychotic, Poor Historian Except as stated in HPI: all other systems reviewed are Neg General / Constitutional: No: Fever Eyes: No: Visual changes HENT: No: Headaches Cardiovascular: No: Chest Pain or Discomfort Respiratory: No: Shortness of Breath Gastrointestinal: No: Abdominal Pain Genitourinary: No: Dysuria Musculoskeletal: No: Pain Skin: No Rash Neurologic: No: Weakness Psychiatric: No: Depression Endocrine: No: Polydipsia Hematologic/Lymphatic: No: Easy Bruising Physical Exam Exam Limitations: Poor Historian, Psychotic Narrative GENERAL: Patient appears in no obvious distress. SKIN: Warm and dry. Normal color. Normal turgor. No signs of trauma. HEAD: Atraumatic. Normocephalic. EYES: Pupils equal and round. No scleral icterus. No injection or drainage. ENT: No nasal bleeding or discharge. Mucous membranes pink and moist. Pharynx is clear. Airway is patent. NECK: Trachea midline. Supple and nontender. CARDIOVASCULAR: Regular rate and rhythm. RESPIRATORY: No accessory muscle use. Clear to auscultation. Breath sounds equal bilaterally. MUSCULOSKELETAL: Extremities without clubbing, cyanosis, or edema. No obvious deformities. NEUROLOGICAL: Awake and alert. No obvious cranial nerve deficits. Motor grossly within normal limits. Five out of 5 muscle strength in the arms and legs. Normal speech. PSYCHIATRIC: Patient is slow in his responses, and appears to be reacting to internal stimuli. He is appropriate in his responses however. Data Data Last Documented VS Vital Signs Date Time Temp Pulse Resp B/P (MAP) Pulse Ox O2 Delivery O2 Flow Rate FiO2 11/21/17 18:24 97.8 102 18 147/88 (107) 96 Room Air Orders Orders Diet Regular Basic (11/21/17 Dinner) [facility] Medical Decision Making Medical Screen Exam Complete: Yes Emergency Medical Condition: Yes Medical Record Reviewed: Yes Differential Diagnosis Schizophrenia. Psychotic break. Hallucinations Narrative Course Patient appears medically stable at time of exam. Labs ordered per protocol Patient is given 15 mg Haldol p.o., as well as lorazepam 2 mg p.o. Patient is medically cleared for psychiatric evaluation. Psych screen is ordered. Disposition: 01 DISCHARGE HOME Condition: Stable Jose Becker Nov 21, 2017 18:52
[2017-11-21] MEDS ORDERED: HALOPERIDOL 5 MG TAB PO ONE (19:00)
[2017-11-21] MEDS ORDERED: LORazepam 2 MG TAB PO ONE (19:00)
[2017-11-21 19:37] LABS: AUTOMATED NEUTROPHIL # 4.5 TH/MM3 (1.8-7.7); BASOPHIL # 0.1 TH/MM3 (0-0.2); BASOPHIL % 0.8 % (0.0-2.0); EOSINOPHIL # 0.1 TH/MM3 (0-0.4); EOSINOPHIL % 1.3 % (0.0-4.0); HEMOGLOBIN 14.6 GM/DL (13.0-17.0); LYMPH % 22.5 % (9.0-44.0); LYMPHOCYTE # 1.5 TH/MM3 (1.0-4.8); MEAN CELL VOLUME 80.8 FL (80.0-100.0); MEAN CORPUSCULAR HEMOGLOBIN 27.4 PG (27.0-34.0); MEAN CORPUSCULAR HGB CONC 33.9 % (32.0-36.0); MEAN PLATELET VOLUME 8.7 FL (7.0-11.0); MONO % 9.4 % (0.0-8.0); MONOCYTE # 0.6 TH/MM3 (0-0.9); PLATELET COUNT 224 TH/MM3 (150-450); RED BLOOD COUNT 5.32 MIL/MM3 (4.50-5.90); RED CELL DISTRIBUTION WIDTH 12.6 % (11.6-17.2); WHITE BLOOD COUNT 6.9 TH/MM3 (4.0-11.0)
[2017-11-21 19:45] LABS: ALBUMIN 3.8 GM/DL (3.4-5.0); AST (GOT) 16 U/L (15-37); BICARBONATE 22.3 MEQ/L (21.0-32.0); BLOOD UREA NITROGEN 13 MG/DL (7-18); CALCIUM 8.8 MG/DL (8.5-10.1); CHLORIDE 109 MEQ/L (98-107); GLOMERULAR FILTRATION RATE 101 ML/MIN (>89); GLUCOSE,RANDOM 93 MG/DL (74-106); SODIUM (NA) 140 MEQ/L (136-145)
[2017-11-21 19:46] LABS: ALT (GPT) 17 U/L (12-78)
[2017-11-21 19:55] LABS: ALKALINE PHOSPHATASE 77 U/L (45-117); TOTAL BILIRUBIN ADULT 0.9 MG/DL (0.2-1.0); TOTAL PROTEIN 7.4 GM/DL (6.4-8.2)
[2017-11-21] MEDS ORDERED: REME30TA PO (20:22)
[2017-11-21 21:50] VITALS: BP 130/70; PULSE 95; RESP 16; TEMP 98.4; O2SAT 98
[2017-11-21] MEDS ORDERED: MAGNESIUM HYDROXIDE SUSP 30 ML CUP PO PRN (22:30)
[2017-11-21] MEDS ORDERED: LORazepam 2 MG/ML VIAL IM PRN (22:30)
[2017-11-21] MEDS ORDERED: ACETAMINOPHEN 325 MG TAB PO PRN (22:30)
[2017-11-21] MEDS ORDERED: ALUMINUM/MAGNESIUM/SIMETH 30 ML CUP PO PRN (22:30)
[2017-11-22 06:30] VITALS: BP 118/81; PULSE 90; RESP 16; TEMP 98.2; O2SAT 99
[2017-11-22] MEDS: NICOTINE 21 MG/24 HR PATCH T-DERMAL SCH (09:00)
[2017-11-22] MEDS: busPIRone HCL 5 MG TAB PO SCH ×3 (10:49→18:00)
[2017-11-22] MEDS: BENZTROPINE MESYLATE 1 MG TAB PO SCH ×2 (10:49→21:27)
[2017-11-22] MEDS: HALOPERIDOL 5 MG TAB PO SCH ×2 (10:49→21:26)
--- NOTE | 2017-11-22 14:13 | HHI.HP ---
Provisional Diagnosis Admission Date Nov 21, 2017 at 21:24 [place] I. 1. Schizophrenia, paranoid type 2. Depressive disorder Rule out schizoaffective disorder [place] II. Deferred Certification of Person's Competence To Provide Express and Informed Consent I have personally examined Divine Gay , a person being served at [facility] on, Nov 22, 2017 14:13. Express and informed consent means consent voluntarily given in writing, by a competent person, after sufficient explanation and disclosure of the subject matter involved to enable the person to make a knowing and willful decision without any element of force, fraud, deceit, duress, or other form of constraint or coercion. This person is 18 years of age or older, is not now known to be incompetent to consent to treatment with a guardian advocate, and does not have a health care surrogate or proxy currently making medical treatment decisions. I have found this person to be one of the following: [x] Competent to provide express and informed consent, as defined above, for voluntary admission to this facility and is competent to provide express and informed consent for treatment. He/she has the consistent capacity to make well reasoned, willful, and knowing decisions concerning his or her medical or mental health treatment. The person fully and consistently understands the purpose of the admission for examination/placement and is fully capable of personally exercising all rights assured [place] Incompetent to provide express and informed consent to voluntary admission, and this is incompetent to provide express and informed consent to treatment. The person must be transferred to involuntary status and a petition for a guardian advocate filed with the Circuit Court. [] Refusing to provide express and informed consent to voluntary admission but is competent to provide express and informed consent for treatment. The person must be discharged or transferred to involuntary status. Form shall be completed within 24 hours of a person's arrival at the receiving facility and filed in the clinical record of each person: 1. Admitted on a voluntary basis 2. Permitted to provide express and informed consent to his/her own treatment 3. Allowed to transfer from involuntary to voluntary status 4. Prior to permitting a person to consent to his or her own treatment after having been previously found incompetent to consent to treatment. History of Present Illness Capacity: Has Capacity Psych Chief Complaint: Depression HPI Mr. Gay is a 22-year-old male with a history of schizophrenia who presented to the emergency department voluntarily complaining of auditory hallucinations and anxiety. According to the ED provider note, the patient has been "thrown out" from his home and may have been engaging in some aggressive behavior there. Reviewing the electronic medical record, I note the patient was admitted most recently under my care in September of this year. Patient seen and examined with nurse. Chart reviewed. Case discussed with nursing staff. On my examination today, the patient presents as somewhat anhedonic and withdrawn. He is a little bit on engaged in interview. His affect is quite flat. Mood is reportedly depressed for several weeks. Sleep and appetite are poor. He denies any suicidal or homicidal ideation, intent or plan. He does complain of audiovisual hallucinations of "devils, demons, angels , gods." He denies any command auditory hallucinations. No delusional material. No hypomanic or manic symptoms. Remainder of the psychiatric ROS is negative. No acute physical complaints. Past psychiatric history: History of previous diagnoses as noted above. He follows with Dr. Ashby. He reports that he is compliant with his psychotropic medications. He denies any history of psychiatric admissions or suicide attempts. Family history: The patient denies a family history of mental illness. Chemical dependency history: Patient denies any abuse of drugs or alcohol. Social history: Patient had been living with his mother and is unsure if he is allowed to return to the home. Otherwise social history is unchanged from previous assessments. No reported access to guns or firearms. Review of Systems ROS Limitations: Psychotic Except as stated in HPI: all other systems reviewed are Neg Past Family Social History Coded Allergies: aspirin (Unverified Allergy, Severe, TACHYCARDIA, 01/28/17) Past Medical History See electronic medical record Active Scripts [Benztropine] 1 MG TAB No Conflict Check, 1 MG PO Q12HR for Mental Health for 15 Days, 1 Refill Prov:Viktor Maria MD 10/08/17 Buspirone (Buspirone) 5 Mg Tab, 5 MG PO TID for Mental Health for 15 Days, TAB 1 Refill Prov:Viktor Maria MD 10/08/17 Haloperidol (Haloperidol) 5 Mg Tab, 5 MG PO DAILY for Mental Health for 15 Days , #15 TAB 1 Refill Prov:Viktor Maria MD 10/08/17 Haloperidol (Haloperidol) 5 Mg Tab, 15 MG PO HS for Mental Health for 15 Days, TAB 1 Refill Prov:Viktor Maria MD 10/08/17 Reported Medications Mirtazapine (Remeron) 30 Mg Tab, 30 MG PO HS for Depression Control, #30 TAB 0 Refills 11/21/17 Current Medications Medications (Trade) Dose Ordered Sig/Harvey Route Start Time Stop Time Status Last Admin (Ativan) 1 mg Q6H PRN PO 11/21/17 22:30 (Ativan Inj) 1 mg Q6H PRN IM 11/21/17 22:30 (Tylenol) 650 mg Q4H PRN PO 11/21/17 22:30 (Milk Of Magnesia Liq) 30 ml DAILY PRN PO 11/21/17 22:30 (Mag-Al Plus Susp Liq) 30 ml Q6H PRN PO 11/21/17 22:30 (Habitrol 21 Mg Patch.24 Hr) 1 patch DAILY T-DERMAL 11/22/17 09:00 Miscellaneous Information 1 HS T-DERMAL 11/22/17 21:00 (Haldol) 15 mg HS PO 11/22/17 21:00 (Haldol) 5 mg DAILY PO 11/22/17 09:00 11/22/17 10:49 (Buspar) 5 mg TID PO 11/22/17 09:00 11/22/17 10:49 (Cogentin) 1 mg BID PO 11/22/17 09:00 11/22/17 10:49 (Remeron) 30 mg HS PO 11/22/17 21:00 Patient's Strengths (min. 2) In a monitored setting. Verbally fluent. Physical Exam Physical exam completed by ED provider. On my examination today, the patient appears to be in no acute physical distress. No motor abnormalities noted. Laboratories and vital signs reviewed: Vital Signs Vital Signs Date Time Temp Pulse Resp B/P (MAP) Pulse Ox O2 Delivery O2 Flow Rate FiO2 11/22/17 06:30 98.2 90 16 118/81 (93) 99 11/21/17 18:24 Room Air Lab Results Test 11/21/17 18:00 11/21/17 19:05 Urine Opiates Screen NEG Urine Barbiturates Screen NEG Urine Amphetamines Screen NEG Urine Benzodiazepines Screen POS Urine Cocaine Screen NEG Urine Cannabinoids Screen NEG White Blood Count 6.9 TH/MM3 Red Blood Count 5.32 MIL/MM3 Hemoglobin 14.6 GM/DL Hematocrit 43.0 % Mean Corpuscular Volume 80.8 FL Mean Corpuscular Hemoglobin 27.4 PG Mean Corpuscular Hemoglobin Concent 33.9 % Red Cell Distribution Width 12.6 % Platelet Count 224 TH/MM3 Mean Platelet Volume 8.7 FL Neutrophils (%) (Auto) 66.0 % Lymphocytes (%) (Auto) 22.5 % Monocytes (%) (Auto) 9.4 % Eosinophils (%) (Auto) 1.3 % Basophils (%) (Auto) 0.8 % Neutrophils # (Auto) 4.5 TH/MM3 Lymphocytes # (Auto) 1.5 TH/MM3 Monocytes # (Auto) 0.6 TH/MM3 Eosinophils # (Auto) 0.1 TH/MM3 Basophils # (Auto) 0.1 TH/MM3 CBC Comment DIFF FINAL Differential Comment Blood Urea Nitrogen 13 MG/DL Creatinine 1.10 MG/DL Random Glucose 93 MG/DL Total Protein 7.4 GM/DL Albumin 3.8 GM/DL Calcium Level 8.8 MG/DL Alkaline Phosphatase 77 U/L Aspartate Amino Transf (AST/SGOT) 16 U/L Alanine Aminotransferase (ALT/SGPT) 17 U/L Total Bilirubin 0.9 MG/DL Sodium Level 140 MEQ/L Potassium Level 3.9 MEQ/L Chloride Level 109 MEQ/L Carbon Dioxide Level 22.3 MEQ/L Anion Gap 9 MEQ/L Estimat Glomerular Filtration Rate 101 ML/MIN Thyroid Stimulating Hormone 3rd Gen 0.800 uIU/ML Ethyl Alcohol Level LESS THAN 3 MG/DL Mental Status Examination Appearance: Disheveled Consciousness: Alert Orientation: x4 Motor Activity: Other (Mildly psychomotor slowed) Speech: Slow Language: Adequate Fund of Knowledge: Adequate Attention and Concentration: Adequate Memory: Unremarkable (Grossly intact on clinical exam) Mood: Other (Depressed) Affect: Flat Thought Process & Associations: Intact Thought Content: Hallucinations Hallucination Type: Auditory, Visual Delusion Type: None Suicidal Ideation: No Suicidal Plan: No Suicidal Intention: No Homicidal Ideation: No Homicidal Plan: No Homicidal Intention: No Mental Status Exam Remarks Insight and judgment are fair Assessment & Plan Problem List: (1) Schizophrenia, paranoid type ICD Codes: F20.0 - Paranoid schizophrenia Status: Acute (2) Depressive disorder ICD Codes: F32.9 - Major depressive disorder, single episode, unspecified Assessment & Plan 22-year-old male with psychiatric history as detailed above who presents voluntarily for psychiatric evaluation. On my examination today, the patient complains chiefly of depressive symptoms. His psychotic symptoms are of long duration, and they may in fact be fixed and baseline. Patient may have been evicted from his home and so we may be without any safe discharge plan for this chronically mentally ill patient. Patient requires psychiatric hospitalization at this time for safety, observation, and stabilization. Admit inpatient. Voluntary status. Titrate Remeron to 45 mg at bedtime to target dysphoria. Continue Haldol 5 mg in the morning and 15 mg at bedtime for psychosis. Continue BuSpar as ordered. Ativan as needed for anxiety. Vitals every shift. Counselor to see. Collateral information. Disposition planning. Estimated length of stay: 5-7 days. Discharge Planning Pending psychiatric stabilization Request HC Surrog/Guard Advoc?: No Viktor Maria MD Nov 22, 2017 14:13
[2017-11-22] MEDS: LORazepam 1 MG TAB PO PRN ×2 (15:34→21:27)
[2017-11-22 17:45] VITALS: BP 146/74; PULSE 97; RESP 17; TEMP 98.5; O2SAT 98
[2017-11-22] MEDS: REMOVE OLD NICOTINE PATCH T-DERMAL SCH (21:00)
[2017-11-22] MEDS ORDERED: MIRTAZAPINE 15 MG TAB PO SCH (21:00)
[2017-11-22] MEDS: MIRTAZAPINE 15 MG TAB PO SCH (21:27)
[2017-11-23 06:43] VITALS: BP 112/66; PULSE 75; RESP 17; TEMP 97.6; O2SAT 98
[2017-11-23] MEDS: NICOTINE 21 MG/24 HR PATCH T-DERMAL SCH ×2 (09:00→13:07)
[2017-11-23] MEDS: BENZTROPINE MESYLATE 1 MG TAB PO SCH ×2 (10:24→20:38)
[2017-11-23] MEDS: HALOPERIDOL 5 MG TAB PO SCH ×2 (10:24→20:39)
[2017-11-23] MEDS: busPIRone HCL 5 MG TAB PO SCH ×3 (10:24→18:13)
--- NOTE | 2017-11-23 14:56 | HHI.PYPN ---
Subjective Chief Complaint: Depression Remarks Pt seen and discussed with staff. He was admitted due to exacerbation of schizophrenia (psychosis due to non compliance with medications) He has been taking medications and is tolerating them without side effects. He remains psychotic with AH (demons angels and gods) but has not been aggressive. Mental Status Examination Appearance: Disheveled Consciousness: Alert Orientation: x4 Motor Activity: Other (Mildly psychomotor slowed) Speech: Slow Language: Adequate Fund of Knowledge: Adequate Attention and Concentration: Adequate Memory: Unremarkable (Grossly intact on clinical exam) Mood: Other (Depressed) Affect: Flat Thought Process & Associations: Intact Thought Content: Hallucinations Hallucination Type: Auditory, Visual Delusion Type: None Suicidal Ideation: No Suicidal Plan: No Suicidal Intention: No Homicidal Ideation: No Homicidal Plan: No Homicidal Intention: No Results Vitals/IOs Vital Signs Date Time Temp Pulse Resp B/P (MAP) Pulse Ox O2 Delivery O2 Flow Rate FiO2 11/23/17 06:43 97.6 75 17 112/66 (81) 98 11/21/17 18:24 Room Air Assessment & Plan Problem List: (1) Schizophrenia, paranoid type ICD Codes: F20.0 - Paranoid schizophrenia Status: Acute (2) Depressive disorder ICD Codes: F32.9 - Major depressive disorder, single episode, unspecified Assessment & Plan Continue current tx plan. Estimated LOS: days Justification for Cont. Inpt. psychosis Request HC Surrog/Guard Advoc?: Delfina Ly MD Nov 23, 2017 14:56
[2017-11-23 17:47] VITALS: BP 161/80; PULSE 99; RESP 17; TEMP 97.8; O2SAT 99
[2017-11-23] MEDS: MIRTAZAPINE 15 MG TAB PO SCH (20:38)
[2017-11-23] MEDS: REMOVE OLD NICOTINE PATCH T-DERMAL SCH (21:00)
[2017-11-24 06:39] VITALS: BP 133/74; PULSE 87; RESP 18; TEMP 98.3; O2SAT 100
[2017-11-24] MEDS: busPIRone HCL 5 MG TAB PO SCH ×3 (08:54→18:00)
[2017-11-24] MEDS: BENZTROPINE MESYLATE 1 MG TAB PO SCH ×2 (08:54→20:24)
[2017-11-24] MEDS: HALOPERIDOL 5 MG TAB PO SCH ×2 (08:54→20:24)
[2017-11-24] MEDS: NICOTINE 21 MG/24 HR PATCH T-DERMAL SCH (08:57)
[2017-11-24 10:04] LABS: BICARBONATE 23.7 MEQ/L (21.0-32.0); BLOOD UREA NITROGEN 10 MG/DL (7-18); CALCIUM 8.8 MG/DL (8.5-10.1); CHLORIDE 106 MEQ/L (98-107); CHOLESTEROL 141 MG/DL (120-200); CREATININE 0.96 MG/DL (0.60-1.30); GLOMERULAR FILTRATION RATE 118 ML/MIN (>89); GLUCOSE,RANDOM 83 MG/DL (74-106); SODIUM (NA) 141 MEQ/L (136-145)
[2017-11-24 10:07] LABS: CHOLESTEROL/ HDL RATIO 2.95 RATIO; HDL CHOLESTEROL 47.7 MG/DL (40.0-60.0); LDL CHOLESTEROL 80 MG/DL (0-99); TRIGLYCERIDES 69 MG/DL (42-150)
--- NOTE | 2017-11-24 11:26 | HHI.PYPN ---
Subjective Chief Complaint: Depression Remarks Patient seen and examined with nurse. Chart reviewed. Case discussed with nursing staff. Patient reportedly sleeping quite poorly. On my examination today, the patient is hyperverbal with delayed responses. Prominent negative symptoms. He is observed mouthing words to himself and appears internally stimulated though he denies seeing or hearing any demons as before. No SI or HI. Denies side effects from medications. No physical complaints. Review of Systems ROS Limitations: Psychotic, Poor Historian Except as stated in HPI: all other systems reviewed are Neg Mental Status Examination Appearance: Disheveled Consciousness: Alert Orientation: x4 Motor Activity: Other (Remains a little psychomotor slowed) Speech: Slow Language: Adequate Fund of Knowledge: Adequate Attention and Concentration: Adequate Memory: Unremarkable (Grossly intact on clinical exam) Mood: Other (Mildly dysphoric) Affect: Flat Thought Process & Associations: Intact Thought Content: Hallucinations Hallucination Type: Other (Remains internally stimulated) Delusion Type: None Suicidal Ideation: No Suicidal Plan: No Suicidal Intention: No Homicidal Ideation: No Homicidal Plan: No Homicidal Intention: No Insight: Poor Judgment: Poor Results Labs Test 11/24/17 08:22 Blood Urea Nitrogen 10 MG/DL Creatinine 0.96 MG/DL Random Glucose 83 MG/DL Calcium Level 8.8 MG/DL Sodium Level 141 MEQ/L Potassium Level 3.6 MEQ/L Chloride Level 106 MEQ/L Carbon Dioxide Level 23.7 MEQ/L Anion Gap 11 MEQ/L Estimat Glomerular Filtration Rate 118 ML/MIN Triglycerides Level 69 MG/DL Cholesterol Level 141 MG/DL LDL Cholesterol 80 MG/DL HDL Cholesterol 47.7 MG/DL Cholesterol/HDL Ratio 2.95 RATIO Labs reviewed Vitals/IOs Vital Signs Date Time Temp Pulse Resp B/P (MAP) Pulse Ox O2 Delivery O2 Flow Rate FiO2 11/24/17 06:39 98.3 87 18 133/74 (93) 100 11/21/17 18:24 Room Air Assessment & Plan Problem List: (1) Schizophrenia, paranoid type ICD Codes: F20.0 - Paranoid schizophrenia Status: Acute (2) Depressive disorder ICD Codes: F32.9 - Major depressive disorder, single episode, unspecified Assessment & Plan Titrate Haldol to 10/15 mg to target psychosis. I will add Ambien as needed for insomnia. Continue other psychotropics as ordered. Continue to monitor on inpatient unit. Continue other medications and care as ordered. Justification for Cont. Inpt. Medication changes. Impairment in reality construction. Risk for decompensation in less restrictive setting. Discharge Planning Pending psychiatric stabilization Request HC Surrog/Guard Advoc?: No Viktor Maria MD Nov 24, 2017 11:26
[2017-11-24] MEDS ORDERED: ZOLPIDEM TARTRATE 5 MG TAB PO PRN (11:30)
[2017-11-24 17:05] LABS: HEMOGLOBIN A1C 5.2 % (4.3-6.0)
[2017-11-24] MEDS: MIRTAZAPINE 15 MG TAB PO SCH (20:24)
[2017-11-24] MEDS: REMOVE OLD NICOTINE PATCH T-DERMAL SCH (20:30)
[2017-11-25 06:21] VITALS: BP 113/52; PULSE 54; RESP 18; TEMP 97.3; O2SAT 96
[2017-11-25] MEDS: busPIRone HCL 5 MG TAB PO SCH ×3 (08:27→18:41)
[2017-11-25] MEDS: BENZTROPINE MESYLATE 1 MG TAB PO SCH ×2 (08:27→20:07)
[2017-11-25] MEDS: HALOPERIDOL 10 MG TAB PO SCH (08:27)
[2017-11-25] MEDS: NICOTINE 21 MG/24 HR PATCH T-DERMAL SCH (09:00)
--- NOTE | 2017-11-25 13:00 | HHI.PYPN ---
Subjective Chief Complaint: Depression Remarks Patient seen and examined with nurse. Chart reviewed. Case discussed with nursing staff. Per nursing, patient is guarded and quiet but reports that auditory hallucinations are decreasing. On my examination today, the patient presents as hypoverbal, apathetic and flat. He is not interested in extended interview today despite repeated invitations. He does tell me that the voices are "gone, almost." He tells me that they are "just talking" now. He denies any suicidal or homicidal ideation. No side effects from medications. No physical complaints. We did discuss the possibility of placement in some sort of structured living environment, but the patient does say that he wants to return home with mother. He is noncommittal when I ask if he feels that he is psychiatrically ready to return home. Review of Systems ROS Limitations: Psychotic, Poor Historian Except as stated in HPI: all other systems reviewed are Neg Mental Status Examination Appearance: Disheveled Consciousness: Alert Orientation: x4 Motor Activity: Other (Somewhat psychomotor slowed) Speech: Slow Language: Adequate Fund of Knowledge: Adequate Attention and Concentration: Adequate Memory: Unremarkable (Grossly intact on clinical exam) Mood: Other (Calm) Affect: Flat Thought Process & Associations: Intact Thought Content: Hallucinations Hallucination Type: Auditory (Decreasing) Delusion Type: None Suicidal Ideation: No Suicidal Plan: No Suicidal Intention: No Homicidal Ideation: No Homicidal Plan: No Homicidal Intention: No Insight: Poor Judgment: Poor Results Labs Labs reviewed Vitals/IOs Vital Signs Date Time Temp Pulse Resp B/P (MAP) Pulse Ox O2 Delivery O2 Flow Rate FiO2 11/25/17 06:21 97.3 54 18 113/52 (72) 96 11/21/17 18:24 Room Air Assessment & Plan Problem List: (1) Schizophrenia, paranoid type ICD Codes: F20.0 - Paranoid schizophrenia Status: Acute (2) Depressive disorder ICD Codes: F32.9 - Major depressive disorder, single episode, unspecified Assessment & Plan Patient has prominent negative symptoms but requires additional time with antipsychotic for adequate stabilization for discharge. Continue Haldol as ordered for now but consider further titration of this agent. Continue to monitor on the inpatient unit. Continue other medications and care as ordered. Justification for Cont. Inpt. High risk for decompensation in less restrictive environment Discharge Planning Pending psychiatric stabilization Request HC Surrog/Guard Advoc?: No Viktor Maria MD Nov 25, 2017 13:00
[2017-11-25] MEDS ORDERED: NICOTINE 21 MG/24 HR PATCH T-DERMAL PRN (16:00)
[2017-11-25 17:00] VITALS: BP 137/67; PULSE 75; RESP 18; TEMP 98.3; O2SAT 97
[2017-11-25] MEDS: MIRTAZAPINE 15 MG TAB PO SCH (20:07)
[2017-11-25] MEDS: HALOPERIDOL 5 MG TAB PO SCH (20:07)
[2017-11-25] MEDS: REMOVE OLD NICOTINE PATCH T-DERMAL SCH (21:00)
[2017-11-25] MEDS: LORazepam 1 MG TAB PO PRN (22:38)
[2017-11-26 05:54] VITALS: BP 116/56; PULSE 62; RESP 18; TEMP 98.1; O2SAT 100
[2017-11-26] MEDS: BENZTROPINE MESYLATE 1 MG TAB PO SCH (08:05)
[2017-11-26] MEDS: HALOPERIDOL 10 MG TAB PO SCH (08:05)
[2017-11-26] MEDS: busPIRone HCL 5 MG TAB PO SCH ×2 (08:05→13:00)
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
[2017-11-26] MEDS ORDERED: MIRTA15 PO (11:11)
[2017-11-26] MEDS ORDERED: Benztropine PO (11:11)
[2017-11-26] MEDS ORDERED: HALO10TA PO (11:11)
[2017-11-26] MEDS ORDERED: HALO5TAB PO (11:11)
== END 2017-11-26 15:30 | disposition left against medical advice (07) | DRG 885 ==
LOC: NEPJ 17:38 → NEDA 21:24 → H270 21:54
PROVIDERS: ADMIT Psychiatry & Neurology Psychiatry; ATTEND Psychiatry & Neurology Psychiatry
DX: F20.0 Paranoid schizophrenia (principal); Z91.14 Patient's other noncompliance with medication regimen; F32.9 Major depressive disorder, single episode, unspecified; F17.210 Nicotine dependence, cigarettes, uncomplicated; J45.909 Unspecified asthma, uncomplicated; Z88.6 Allergy status to analgesic agent
CPT/HCPCS: 80048; 80053; 80061; 80307; 83036; 84443; 85025; 99285

== ENCOUNTER 2017-11-29 19:33 | Inpatient (IN) | payer OTHER ==
[~2017-11-29] VITALS: Ht 167.6 cm; Wt 66.8 kg
[~2017-11-29 19:33] MED LIST changes: +HALO10TA PO; +MIRTA15 PO
[2017-11-29 19:52] VITALS: BP 120/65; PULSE 88; RESP 18; TEMP 98.8; O2SAT 100
--- NOTE | 2017-11-29 21:10 | PD ---
HPI Chief Complaint: Psychiatric Symptoms Time Seen by Provider: 21:05 Travel History International Travel<30 days: No Contact w/Intl Traveler<30days: No Traveled to known affect area: No History of Present Illness HPI 22-year-old male with history of schizophrenia presents voluntarily requesting psychiatric evaluation. He is complaining of auditory hallucinations. Symptom onset 6 years ago. Symptoms are moderate with no obvious aggravating factors. Partially relieved with his prescribed medications. He reports that he has been compliant with his medication regimen. He is also complaining of addiction to cigarettes and he would like to quit smoking cigarettes. He denies any homicidal ideation, suicidal ideation, drug or alcohol use, visual hallucinations. He has no other complaints at this time. [facility] Past Medical History ADHD: No Arthritis: No Asthma: Yes Autoimmune Disease: No Bipolar Disorder: Yes Anxiety: Yes Depression: Yes Heart Rhythm Problems: No Cancer: No Cardiovascular Problems: No High Cholesterol: No Chemotherapy: No Chest Pain: No Congestive Heart Failure: No COPD: No Cerebrovascular Accident: No Diabetes: No Diminished Hearing: No Endocrine: No Gastrointestinal Disorders: No GERD: No Genitourinary: No Headaches: No Hiatal Hernia: No Heparin Induced Thrombocytopen: No Hypertension: No Immune Disorder: No Implanted Vascular Access Dvce: No Kidney Stones: No Musculoskeletal: No Neurologic: No Psychiatric: Yes Reproductive: No Respiratory: Yes Immunizations Current: Yes Migraines: No Radiation Therapy: No Schizophrenia: Yes Seizures: No Sickle Cell Disease: No Sleep Apnea: No Thyroid Disease: No Ulcer: No PNEUMOCCOCAL Vaccine (Year): 1 Past Surgical History Surgical History: No Previous Surgery Abdominal Surgery: No AICD: No Arteriovenous Shunt: No Cardiac Surgery: No Ear Surgery: No Endocrine Surgery: No Eye Surgery: No Genitourinary Surgery: No Gynecologic Surgery: No Insulin Pump: No Joint Replacement: No Neurologic Surgery: No Oral Surgery: No Pacemaker: No Thoracic Surgery: No Other Surgery: No (ed admit-none known) Social History Alcohol Use: No Tobacco Use: Yes (1/2 ppd cigarettes) Substance Use: No Allergies-Medications (Allergen,Severity, Reaction): Coded Allergies: aspirin (Unverified Allergy, Severe, TACHYCARDIA, 01/28/17) Reported Meds & Prescriptions Reported Meds & Active Scripts Active [Benztropine] 1 MG Tab 1 Mg PO BID 10 Days Haloperidol 10 Mg Tab 10 Mg PO DAILY 10 Days Mirtazapine 15 Mg Tab 45 Mg PO HS 10 Days Haloperidol 5 Mg Tab 15 Mg PO HS 10 Days Buspirone (Buspirone HCl) 5 Mg Tab 5 Mg PO TID 15 Days Review of Systems Except as stated in HPI: all other systems reviewed are Neg Physical Exam Narrative GENERAL: Well-developed well-nourished male in no acute distress SKIN: Warm and dry. HEAD: Atraumatic. Normocephalic. EYES: Pupils equal and round. No scleral icterus. No injection or drainage. ENT: No nasal bleeding or discharge. Mucous membranes pink and moist. NECK: Trachea midline. No JVD. CARDIOVASCULAR: Regular rate and rhythm. No murmur appreciated. RESPIRATORY: No accessory muscle use. Clear to auscultation. Breath sounds equal bilaterally. GASTROINTESTINAL: Abdomen soft, non-tender, nondistended. Hepatic and splenic margins not palpable. MUSCULOSKELETAL: No obvious deformities. No clubbing. No cyanosis. No edema. NEUROLOGICAL: Awake and alert. No obvious cranial nerve deficits. Motor grossly within normal limits. Normal speech. PSYCHIATRIC: Appropriate mood, flat affect, insight and judgment appear reasonable Data Data Last Documented VS Vital Signs Date Time Temp Pulse Resp B/P (MAP) Pulse Ox O2 Delivery O2 Flow Rate FiO2 11/29/17 19:52 98.8 88 18 120/65 (83) 100 Orders Orders Psych Screen (11/29/17 21:08) Nicotine 14 Mg Patch.24 Hr (Habitrol 14 (11/29/17 21:15) MDM Medical Decision Making Medical Screen Exam Complete: Yes Emergency Medical Condition: Yes Medical Record Reviewed: Yes Differential Diagnosis Schizophrenia, acute psychosis, medication noncompliance, adjustment reaction Narrative Course 22-year-old male with history of schizophrenia presents voluntarily for evaluation of auditory hallucinations. I reviewed his lab work from 1 week ago. Mental health screening discussed with the patient. Psychiatric screen ordered. A nicotine patch was ordered. The patient is medically cleared. Diagnosis Primary Impression: Medical clearance for psychiatric admission Dash Romero Nov 29, 2017 21:10
[2017-11-29] MEDS ORDERED: NICOTINE 14 MG/24 HR PATCH T-DERMAL ONE (21:15)
[2017-11-29 21:54] VITALS: BP 118/72; PULSE 69; RESP 17; TEMP 97.8; O2SAT 99
[2017-11-30] MEDS ORDERED: LORazepam 2 MG/ML VIAL IM ONE
[2017-11-30 06:18] VITALS: BP 137/84; PULSE 60; RESP 18; TEMP 98.6; O2SAT 100
[2017-11-30 09:16] LABS: AUTOMATED NEUTROPHIL # 4.4 TH/MM3 (1.8-7.7); BASOPHIL # 0.1 TH/MM3 (0-0.2); BASOPHIL % 0.8 % (0.0-2.0); EOSINOPHIL # 0.3 TH/MM3 (0-0.4); EOSINOPHIL % 3.3 % (0.0-4.0); HEMATOCRIT 41.6 % (39.0-51.0); LYMPH % 33.4 % (9.0-44.0); LYMPHOCYTE # 2.7 TH/MM3 (1.0-4.8); MEAN CELL VOLUME 80.3 FL (80.0-100.0); MEAN CORPUSCULAR HGB CONC 33.6 % (32.0-36.0); MEAN PLATELET VOLUME 8.5 FL (7.0-11.0); MONO % 7.2 % (0.0-8.0); MONOCYTE # 0.6 TH/MM3 (0-0.9); NEUT % 55.3 % (16.0-70.0); PLATELET COUNT 253 TH/MM3 (150-450); RED BLOOD COUNT 5.18 MIL/MM3 (4.50-5.90); RED CELL DISTRIBUTION WIDTH 12.6 % (11.6-17.2)
[2017-11-30 09:43] LABS: BICARBONATE 24.9 MEQ/L (21.0-32.0); CALCIUM 8.7 MG/DL (8.5-10.1); CREATININE 0.88 MG/DL (0.60-1.30)
[2017-11-30] MEDS ORDERED: ACETAMINOPHEN 325 MG TAB PO PRN (13:45)
[2017-11-30] MEDS ORDERED: ALUMINUM/MAGNESIUM/SIMETH 30 ML CUP PO PRN (13:45)
[2017-11-30] MEDS ORDERED: BENZTROPINE 1 MG PO SCH (13:45)
[2017-11-30] MEDS ORDERED: MAGNESIUM HYDROXIDE SUSP 30 ML CUP PO PRN (13:45)
[2017-11-30] MEDS ORDERED: LORazepam 0.5 MG TAB PO PRN (13:45)
[2017-11-30] MEDS ORDERED: LORazepam 2 MG/ML VIAL IM PRN ×2 (13:45)
--- NOTE | 2017-11-30 13:52 | HHI.HP ---
Provisional Diagnosis Admission Date Nixon I. Schizophrenia Nixon II. deferred Nixon III. No medical problem Nixon IV. Multiple psychiatric admissions Certification of Person's Competence To Provide Express and Informed Consent I have personally examined Divine Gay , a person being served at [facility] on, Nov 30, 2017 13:38. Express and informed consent means consent voluntarily given in writing, by a competent person, after sufficient explanation and disclosure of the subject matter involved to enable the person to make a knowing and willful decision without any element of force, fraud, deceit, duress, or other form of constraint or coercion. This person is 18 years of age or older, is not now known to be incompetent to consent to treatment with a guardian advocate, and does not have a health care surrogate or proxy currently making medical treatment decisions. I have found this person to be one of the following: [] Competent to provide express and informed consent, as defined above, for voluntary admission to this facility and is competent to provide express and informed consent for treatment. He/she has the consistent capacity to make well reasoned, willful, and knowing decisions concerning his or her medical or mental health treatment. The person fully and consistently understands the purpose of the admission for examination/placement and is fully capable of personally exercising all rights [place] Incompetent to provide express and informed consent to voluntary admission, and this is incompetent to provide express and informed consent to treatment. The person must be transferred to involuntary status and a petition for a guardian advocate filed with the Circuit Court. [x] Refusing to provide express and informed consent to voluntary admission but is competent to provide express and informed consent for treatment. The person must be discharged or transferred to involuntary status. Form shall be completed within 24 hours of a person's arrival at the receiving facility and filed in the clinical record of each person: 1. Admitted on a voluntary basis 2. Permitted to provide express and informed consent to his/her own treatment 3. Allowed to transfer from involuntary to voluntary status 4. Prior to permitting a person to consent to his or her own treatment after having been previously found incompetent to consent to treatment. History of Present Illness Capacity: Has Capacity HPI The patient is a 22-year-old -[place] man, single, domiciled with his mother, unemployed, on SSI, with psychiatric history of schizophrenia, intellectual disability, multiple psychiatric hospitalizations, just discharge a week ago from [facility] where he was under the care of Dr. Maria, the recommendation reviewed, previous suicide attempts, no significant medical history, outpatient psychiatric care, he is on Remeron 45 mg, Haldol 10 mg in the morning, 15 mg at bedtime, benztropine 1 mg twice daily, BuSpar 5 mg daily, Who was brought to the ER voluntarily due to increased auditory hallucinations of voices telling her to kill himself. Patient was seen for psychiatric evaluation in the [facility]. Case discussed with ER staff. Collateral information from his mother obtained. On psychiatric evaluation the patient is very flat, seems to be internally preoccupied, guarded, suspicious, just superficially cooperative in the interview. He reports that he has been hearing increase in intensity and volume voices telling him to kill himself. He says that the voices are very loud "can you hear them??". He denies suicidal and homicidal ideation, he denies visual hallucinations. He is oriented 3 per Past psychiatric history: History of schizophrenia, multiple psychiatric admissions, 3 hospitalization this year in [place], he is on Haldol 10 mg in the morning, 15 mg at bedtime benztropine 1 mg twice daily, BuSpar 5 mg daily, Remeron 45 mg he follows with Dr. Ashby. He reports that he is compliant with his psychotropic medications. He denies any history of psychiatric admissions or suicide attempts. Family history: The patient denies a family history of mental illness. Chemical dependency history: Patient denies any abuse of drugs or alcohol. Social history: Patient had been living with his mother, single, unemployed. No reported access to guns or firearms. Review of Systems Constitutional: DENIES: Diaphoretic episodes, Fatigue, Fever, Weight gain, Weight loss, Chills, Dizziness, Change in appetite, Night Sweats Endocrine: DENIES: Heat/cold intolerance, Polydipsia, Polyuria, Polyphagia Eyes: DENIES: Blurred vision, Diplopia, Eye inflammation, Eye pain, Vision loss , Photosensitivity, Double Vision Ears, nose, mouth, throat: DENIES: Tinnitus, Hearing loss, Vertigo, Nasal discharge, Oral lesions, Throat pain, Hoarseness, Ear Pain, Running Nose, Epistaxis, Sinus Pain, Toothache, Odynophagia Respiratory: DENIES: Apneas, Cough, Snoring, Wheezing, Hemoptysis, Sputum production, Shortness of breath Cardiovascular: DENIES: Chest pain, Palpitations, Syncope, Dyspnea on Exertion , PND, Lower Extremity Edema, Orthopnea, Claudication Gastrointestinal: DENIES: Abdominal pain, Black stools, Bloody stools, Constipation, Diarrhea, Nausea, Vomiting, Difficulty Swallowing, Anorexia Genitourinary: DENIES: Sexual dysfunction, Urinary frequency, Urinary incontinence, Urgency, Hematuria, Dysuria, Nocturia, Penile Discharge, Testicular Pain, Testicular Swelling Musculoskeletal: DENIES: Joint pain, Muscle aches, Stiffness, Joint Swelling, Back pain, Neck pain Integumentary: DENIES: Abnormal pigmentation, Nail changes, Pruritus, Rash Hematologic/lymphatic: DENIES: Bruising, Lymphadenopathy Immunologic/allergic: DENIES: Eczema, Urticaria Neurologic: DENIES: Abnormal gait, Headache, Localized weakness, Paresthesias, Seizures, Speech Problems, Tremor, Poor Balance Psychiatric: COMPLAINS OF: Hallucinations, DENIES: Anxiety, Confusion, Mood changes, Depression, Agitation, Suicidal Ideation, Homicidal Ideation, Delusions Substance Abuse History Drugs/Alcohol past 12 months He denies the use of drugs and alcohol Past Family Social History Coded Allergies: aspirin (Unverified Allergy, Severe, TACHYCARDIA, 01/28/17) Active Scripts [Benztropine] 1 MG TAB No Conflict Check, 1 MG PO BID for Side effect management for 10 Days, 2 Refills Prov:Viktor Maria MD 11/26/17 Haloperidol (Haloperidol) 10 Mg Tab, 10 MG PO DAILY for Mental Health for 10 Days, #10 TAB 2 Refills Prov:Viktor Maria MD 11/26/17 Mirtazapine (Mirtazapine) 15 Mg Tab, 45 MG PO HS for Mental Health for 10 Days, TAB 2 Refills Prov:Viktor Maria MD 11/26/17 Haloperidol (Haloperidol) 5 Mg Tab, 15 MG PO HS for Mental Health for 10 Days, TAB 2 Refills Prov:Viktor Maria MD 11/26/17 Buspirone (Buspirone) 5 Mg Tab, 5 MG PO TID for Mental Health for 15 Days, TAB 1 Refill Prov:Viktor Maria MD 10/08/17 Discontinued Reported Medications Mirtazapine (Remeron) 30 Mg Tab, 30 MG PO HS for Depression Control, #30 TAB 0 Refills 11/21/17 Discontinued Scripts [Benztropine] 1 MG TAB No Conflict Check, 1 MG PO Q12HR for Mental Health for 15 Days, 1 Refill Prov:Viktor Maria MD 10/08/17 Haloperidol (Haloperidol) 5 Mg Tab, 5 MG PO DAILY for Mental Health for 15 Days , #15 TAB 1 Refill Prov:Viktor Maria MD 10/08/17 Current Medications Medications (Trade) Dose Ordered Sig/Harvey Route Start Time Stop Time Status Last Admin (Buspar) 5 mg TID PO 11/30/17 18:00 UNV (Haldol) 15 mg HS PO 11/30/17 21:00 UNV (Haldol) 10 mg DAILY PO 12/01/17 09:00 UNV (Remeron) 45 mg HS PO 11/30/17 21:00 UNV Non-Formulary Medication 1 mg BID PO 11/30/17 13:45 UNV (Ativan) 1 mg Q6H PRN PO 11/30/17 13:45 UNV (Ativan Inj) 1 mg Q6H PRN IM 11/30/17 13:45 UNV (Ativan) 0.5 mg Q12H PRN PO 11/30/17 13:45 UNV (Ativan Inj) 0.5 mg Q12H PRN IM 11/30/17 13:45 UNV (Tylenol) 650 mg Q4H PRN PO 11/30/17 13:45 UNV (Milk Of Magnesia Liq) 30 ml DAILY PRN PO 11/30/17 13:45 UNV (Mag-Al Plus Susp Liq) 30 ml Q6H PRN PO 11/30/17 13:45 UNV (Habitrol 21 Mg Patch.24 Hr) 1 patch DAILY T-DERMAL 11/30/17 13:45 UNV Family Psych History No family psychiatric history Patient's Strengths (min. 2) Outpatient psychiatric care Physical Exam No tremors, no EPS, no psychomotor agitation or retardation, no gait disturbance Vital Signs Vital Signs Date Time Temp Pulse Resp B/P (MAP) Pulse Ox O2 Delivery O2 Flow Rate FiO2 11/30/17 06:18 98.6 60 18 137/84 (101) 100 Room Air Lab Results Test 11/30/17 09:00 White Blood Count 8.0 TH/MM3 Red Blood Count 5.18 MIL/MM3 Hemoglobin 14.0 GM/DL Hematocrit 41.6 % Mean Corpuscular Volume 80.3 FL Mean Corpuscular Hemoglobin 27.0 PG Mean Corpuscular Hemoglobin Concent 33.6 % Red Cell Distribution Width 12.6 % Platelet Count 253 TH/MM3 Mean Platelet Volume 8.5 FL Neutrophils (%) (Auto) 55.3 % Lymphocytes (%) (Auto) 33.4 % Monocytes (%) (Auto) 7.2 % Eosinophils (%) (Auto) 3.3 % Basophils (%) (Auto) 0.8 % Neutrophils # (Auto) 4.4 TH/MM3 Lymphocytes # (Auto) 2.7 TH/MM3 Monocytes # (Auto) 0.6 TH/MM3 Eosinophils # (Auto) 0.3 TH/MM3 Basophils # (Auto) 0.1 TH/MM3 CBC Comment DIFF FINAL Differential Comment Blood Urea Nitrogen 13 MG/DL Creatinine 0.88 MG/DL Random Glucose 82 MG/DL Calcium Level 8.7 MG/DL Sodium Level 141 MEQ/L Potassium Level 3.9 MEQ/L Chloride Level 108 MEQ/L Carbon Dioxide Level 24.9 MEQ/L Anion Gap 8 MEQ/L Estimat Glomerular Filtration Rate 130 ML/MIN Mental Status Examination Appearance: Appropriate Consciousness: Alert Orientation: x4 Motor Activity: Normal gait Speech: Slow Language: Adequate Fund of Knowledge: Adequate Attention and Concentration: Adequate Memory: Unremarkable Mood: Appropriate Affect: Irritable Thought Process & Associations: Intact Thought Content: Appropriate Hallucination Type: Auditory Delusion Type: Paranoid Suicidal Ideation: No Suicidal Plan: No Suicidal Intention: No Homicidal Ideation: No Homicidal Plan: No Homicidal Intention: No Insight: Poor Judgment: Poor Assessment & Plan Problem List: (1) Paranoid schizophrenia with prominent negative symptoms ICD Codes: F20.0 - Paranoid schizophrenia Assessment & Plan: The patient presents with prominent flat affect, delay speech, blocking thought, he is calm, superficially cooperative, guarded, internally preoccupied, reported having increase in intensity and frequency and volume auditory hallucinations of voices telling him to kill himself. This is a patient with a extensive history of schizophrenia, multiple psychiatric hospitalizations, this will be his fourth hospitalization in [place] in 2018, was just discharge from [facility] a week ago. Given his psychiatric history and his active symptoms, the patient is in acute risk of danger to self and others, he needs psychiatric admission for stabilization. Will restart his psychotropics, Haldol 10 mg in the morning, 15 mg at at bedtime,, his troponin I milligram twice daily, Remeron 45 mg at bedtime, buspirone 5 mg daily. Transfer patient to [facility]. Consult psychiatry for second opinion. Assessment & Plan Estimated LOS: days Bear Lopez MD Nov 30, 2017 13:52
[2017-11-30] MEDS: NICOTINE 21 MG/24 HR PATCH T-DERMAL SCH (14:00)
[2017-11-30 16:00] VITALS: BP 112/73; PULSE 96; RESP 16; TEMP 98.1; O2SAT 98
[2017-11-30] MEDS: busPIRone HCL 5 MG TAB PO SCH (17:03)
[2017-11-30] MEDS: MIRTAZAPINE 15 MG TAB PO SCH (20:16)
[2017-11-30] MEDS: HALOPERIDOL 5 MG TAB PO SCH (20:16)
[2017-11-30] MEDS: BENZTROPINE MESYLATE 1 MG TAB PO SCH (20:16)
[2017-12-01 06:16] VITALS: BP 112/53; PULSE 60; RESP 16; TEMP 97.7; O2SAT 98
[2017-12-01] MEDS: busPIRone HCL 5 MG TAB PO SCH ×3 (08:18→18:10)
[2017-12-01] MEDS: REMOVE OLD NICODERM (NICOTINE) PATCH T-DERMAL SCH (08:18)
[2017-12-01] MEDS: BENZTROPINE MESYLATE 1 MG TAB PO SCH ×2 (08:18→20:40)
[2017-12-01] MEDS: HALOPERIDOL 10 MG TAB PO SCH (08:18)
[2017-12-01] MEDS: NICOTINE 21 MG/24 HR PATCH T-DERMAL SCH (08:19)
--- NOTE | 2017-12-01 10:35 | HHI.PYPN ---
Subjective Remarks Reviewed electronic medical record, labs, discuss case with staff. Labs are within normal limits. Follow-up was conducted in the exam room with Ceferino telephonic nurse case manager present. Patient was brought from his room where he was found sleeping. He reports that he is tired and relates this to "having nothing to do ". Explained that it is fresh air time however patient declined to participate. He endorses having auditory hallucinations intermittently. He states that they "just talk" fails to elaborate when asked. Reports the last time he heard them was "when I just woke up". States that he is eating and sleeping "okay". His mood appears to be depressed and his affect is somewhat flat. There was some indication of thought blocking. Mental Status Examination Appearance: Appropriate Consciousness: Alert Orientation: x4 Motor Activity: Normal gait Speech: Slow Language: Adequate Fund of Knowledge: Adequate Attention and Concentration: Adequate Memory: Unremarkable Mood: Appropriate Affect: Irritable Thought Process & Associations: Intact Thought Content: Appropriate Hallucination Type: Auditory Delusion Type: Paranoid Suicidal Ideation: No Suicidal Plan: No Suicidal Intention: No Homicidal Ideation: No Homicidal Plan: No Homicidal Intention: No Insight: Poor Judgment: Poor Results Vitals/IOs Vital Signs Date Time Temp Pulse Resp B/P (MAP) Pulse Ox O2 Delivery O2 Flow Rate FiO2 12/01/17 06:16 97.7 60 16 112/53 (72) 98 11/30/17 06:18 Room Air Assessment & Plan Problem List: (1) Paranoid schizophrenia with prominent negative symptoms ICD Codes: F20.0 - Paranoid schizophrenia Assessment & Plan Estimated LOS: Patient remains symptomatic. We will continue with current treatment plan. Days Justification for Cont. Inpt. Patient remains depressed with flat affect. Indications of thought blocking are present. Continues to be symptomatic. Moving him to a lower level of care would likely result in decompensation. Brenda Bae Dec 01, 2017 10:35
[2017-12-01 15:56] VITALS: BP 111/61; PULSE 77; RESP 18; TEMP 97.3; O2SAT 98
[2017-12-01] MEDS: MIRTAZAPINE 15 MG TAB PO SCH (20:39)
[2017-12-01] MEDS: HALOPERIDOL 5 MG TAB PO SCH (20:40)
[2017-12-02 05:49] VITALS: BP 104/51; PULSE 50; RESP 18; TEMP 97.5; O2SAT 99
[2017-12-02] MEDS: busPIRone HCL 5 MG TAB PO SCH ×3 (08:30→17:24)
[2017-12-02] MEDS: HALOPERIDOL 10 MG TAB PO SCH (08:30)
[2017-12-02] MEDS: BENZTROPINE MESYLATE 1 MG TAB PO SCH ×2 (08:30→20:41)
[2017-12-02] MEDS: NICOTINE 21 MG/24 HR PATCH T-DERMAL SCH (08:31)
[2017-12-02] MEDS: REMOVE OLD NICODERM (NICOTINE) PATCH T-DERMAL SCH (08:31)
--- NOTE | 2017-12-02 09:05 | PD.TTN ---
Patient Problems 1. Discharge planning 2. Medication compliance 3. Knowledge deficit 4. Lack of coping skills Progress Toward Goals Provider Present: Other (Brenda DUMONT) Provider Input: Provider met with the pt for the first time yesterday. Pt presents as depressed Psychiatric Counselors Present: Ceferino Zelaya Jr., [facility] Psych Therapist Input: Pt is in need of further stablization Group Spec/RT/OT/SERRANO Input: No attending groups Ceferino Zelaya Jr, [employer] Dec 02, 2017 09:05
[2017-12-02 17:30] VITALS: BP 115/56; PULSE 61; RESP 17; TEMP 97.2; O2SAT 98
--- NOTE | 2017-12-02 19:48 | HHI.PYPN ---
Subjective Remarks Reviewed electronic medical record discussed case with staff. Patient's nurse reports that in the afternoons he has been observed shadow boxing and kicking in the hallways. He appears internally stimulated at that time. She states that she spoke with mother who expresses concern that she is observing the same behavior in the afternoons. I have added a 12 PM 10 mg p.o. dose of Haldol. Follow-up was conducted in the hallway. Patient reports that he slept well and his appetite has been good. He denies any side effects from the medications. Mental Status Examination Appearance: Appropriate Consciousness: Alert Orientation: x4 Motor Activity: Normal gait Speech: Slow Language: Adequate Fund of Knowledge: Adequate Attention and Concentration: Adequate Memory: Unremarkable Mood: Appropriate Affect: Irritable Thought Process & Associations: Intact Thought Content: Appropriate Hallucination Type: Auditory Delusion Type: Paranoid Suicidal Ideation: No Suicidal Plan: No Suicidal Intention: No Homicidal Ideation: No Homicidal Plan: No Homicidal Intention: No Insight: Poor Judgment: Poor Results Vitals/IOs Vital Signs Date Time Temp Pulse Resp B/P (MAP) Pulse Ox O2 Delivery O2 Flow Rate FiO2 12/02/17 17:30 97.2 61 17 115/56 (75) 98 11/30/17 06:18 Room Air Assessment & Plan Problem List: (1) Paranoid schizophrenia with prominent negative symptoms ICD Codes: F20.0 - Paranoid schizophrenia Assessment & Plan Estimated LOS: Patient continues to be symptomatic. 10 mg afternoon dose of Haldol added. Continue with treatment plan and monitor for reduction of symptoms. Days Justification for Cont. Inpt. Moving this patient to a lower level of care would result in decompensation. Brenda Bae Dec 02, 2017 19:47
[2017-12-02] MEDS: MIRTAZAPINE 15 MG TAB PO SCH (20:41)
[2017-12-02] MEDS ORDERED: HALOPERIDOL 5 MG TAB PO SCH (21:00)
[2017-12-03 06:03] VITALS: BP 116/52; PULSE 86; RESP 18; TEMP 97; O2SAT 98
[2017-12-03] MEDS: NICOTINE 21 MG/24 HR PATCH T-DERMAL SCH (09:00)
[2017-12-03] MEDS: BENZTROPINE MESYLATE 1 MG TAB PO SCH ×2 (09:00→20:55)
[2017-12-03] MEDS: REMOVE OLD NICODERM (NICOTINE) PATCH T-DERMAL SCH (09:00)
[2017-12-03] MEDS: busPIRone HCL 5 MG TAB PO SCH ×3 (09:00→18:00)
[2017-12-03] MEDS: HALOPERIDOL 10 MG TAB PO SCH ×2 (09:00→20:56)
[2017-12-03] MEDS ORDERED: HALOPERIDOL 10 MG TAB PO SCH (12:00)
[2017-12-03 16:44] VITALS: BP 124/80; PULSE 84; RESP 18; TEMP 98.1; O2SAT 99
[2017-12-03] MEDS: LORazepam 1 MG TAB PO PRN (18:00)
[2017-12-03] MEDS: MIRTAZAPINE 15 MG TAB PO SCH (20:55)
[2017-12-04 06:05] VITALS: BP 96/55; PULSE 67; RESP 18; TEMP 97.5; O2SAT 97
[2017-12-04] MEDS: HALOPERIDOL 10 MG TAB PO SCH ×2 (08:19→20:45)
[2017-12-04] MEDS: BENZTROPINE MESYLATE 1 MG TAB PO SCH ×2 (08:19→20:44)
[2017-12-04] MEDS: busPIRone HCL 5 MG TAB PO SCH ×3 (08:19→18:01)
[2017-12-04] MEDS: NICOTINE 21 MG/24 HR PATCH T-DERMAL SCH (08:20)
[2017-12-04] MEDS: REMOVE OLD NICODERM (NICOTINE) PATCH T-DERMAL SCH (08:22)
--- NOTE | 2017-12-04 09:54 | HHI.PYPN ---
Subjective Remarks This note is for December 03, 2017. Reviewed electronic medical records and discussed case with staff. Follow-up was conducted in patient's room where he was found sleeping soundly. He eventually woke to verbal stimuli. He reports that he is sleeping well and feels tired. He reports having a good appetite. He denies side effects from his medications. Staff reports that he still intermittently appears internally stimulated. Mental Status Examination Appearance: Appropriate Consciousness: Alert Orientation: x4 Motor Activity: Normal gait Speech: Slow Language: Adequate Fund of Knowledge: Adequate Attention and Concentration: Adequate Memory: Unremarkable Mood: Appropriate Affect: Irritable Thought Process & Associations: Intact Thought Content: Appropriate Hallucination Type: Auditory Delusion Type: Paranoid Suicidal Ideation: No Suicidal Plan: No Suicidal Intention: No Homicidal Ideation: No Homicidal Plan: No Homicidal Intention: No Insight: Poor Judgment: Poor Results Vitals/IOs Vital Signs Date Time Temp Pulse Resp B/P (MAP) Pulse Ox O2 Delivery O2 Flow Rate FiO2 12/04/17 06:05 97.5 67 18 96/55 (98) 97 Assessment & Plan Problem List: (1) Paranoid schizophrenia with prominent negative symptoms ICD Codes: F20.0 - Paranoid schizophrenia Assessment & Plan Estimated LOS: Patient continues to be symptomatic although he seems to be showing some slight improvement. Days Justification for Cont. Inpt. Moving this patient will less restrictive level of care would likely result in decompensation. He continues to intermittently be internally stimulated Brenda Bae Dec 04, 2017 09:54
--- NOTE | 2017-12-04 17:55 | HHI.PYPN ---
Subjective Remarks Patient seen for follow, chart reviewed. Discussion nursing staff reported the patient noted to be talking to self, has been noted to be shadow boxing on the unit, denying any perceptional services. Patient was found ambulating it is noted to hav flat affect during interview as well as some thought blocking and appearing internally preoccupied. Patient states that he slept well, good appetite eating and drinking well, continues to endorse auditory hallucinations of voices "talking" but was not able to elaborate on content. Patient denies any auditory hallucinations command type to kill himself. Patient states he has spoken with his mother recently and that she believes he could come home. Patient reports tolerating medications well. Review of Systems Except as stated in HPI: all other systems reviewed are Neg Mental Status Examination Appearance: Appropriate Consciousness: Alert Orientation: x4 Motor Activity: Normal gait Speech: Slow Language: Adequate Fund of Knowledge: Adequate Attention and Concentration: Adequate Memory: Unremarkable Mood: Appropriate Affect: Flat Thought Process & Associations: Other ([place]) Thought Content: Thought blocking Hallucination Type: Auditory ("Talking") Delusion Type: Paranoid Suicidal Ideation: No Suicidal Plan: No Suicidal Intention: No Homicidal Ideation: No Homicidal Plan: No Homicidal Intention: No Insight: Poor Judgment: Poor Results Vitals/IOs Vital Signs Date Time Temp Pulse Resp B/P (MAP) Pulse Ox O2 Delivery O2 Flow Rate FiO2 12/04/17 06:05 97.5 67 18 96/55 (69) 97 Assessment & Plan Problem List: (1) Paranoid schizophrenia with prominent negative symptoms ICD Codes: F20.0 - Paranoid schizophrenia Assessment & Plan Patient this time continues to be noted to be internally preoccupied, some thought blocking noted as well and continued auditory hallucinations. We will continue to titrate Haldol to 10 mg a.m./50 mg at bedtime, continue rest of medications. Continue to monitor mood and behavior. Discharge planning in progress. Justification for Cont. Inpt. At risk of further decompensation a lower level of care. Discharge Planning Patient return back to his residence when psychiatrically stable. Paolo Malave MD Dec 04, 2017 17:55
[2017-12-04 18:05] VITALS: BP 127/67; PULSE 77; RESP 16; TEMP 97.5; O2SAT 100
[2017-12-04] MEDS: MIRTAZAPINE 15 MG TAB PO SCH (20:44)
[2017-12-05] MEDS: LORazepam 1 MG TAB PO PRN (02:41)
[2017-12-05 05:55] VITALS: BP 135/83; PULSE 70; RESP 18; TEMP 97.7; O2SAT 99
[2017-12-05] MEDS: REMOVE OLD NICODERM (NICOTINE) PATCH T-DERMAL SCH (09:00)
[2017-12-05] MEDS: NICOTINE 21 MG/24 HR PATCH T-DERMAL SCH (09:00)
[2017-12-05] MEDS: BENZTROPINE MESYLATE 1 MG TAB PO SCH ×2 (09:19→21:01)
[2017-12-05] MEDS: busPIRone HCL 5 MG TAB PO SCH ×3 (09:19→17:30)
[2017-12-05] MEDS: HALOPERIDOL 10 MG TAB PO SCH ×2 (09:19→21:01)
[2017-12-05 18:33] VITALS: BP 121/67; PULSE 84; RESP 18; TEMP 98.2; O2SAT 100
--- NOTE | 2017-12-05 19:26 | HHI.PYPN ---
Subjective Remarks Patient seen for follow, chart reviewed. Discussion nursing staff reported the patient has been attending groups, continues to be visible on the unit, with limited interactions with others. Patient was found in group noted B, cooperative. Patient states that he has been feeling "good" having difficulty sleeping last evening, denying any perceptional disturbances at this time stating "not hearing too many voices" which he states has been improving with medications. Patient reports having spoken with his mother but did not elaborate. Patient noted to have continued thought blocking but less today and more reactive and appropriate responses during interview. Review of Systems Except as stated in HPI: all other systems reviewed are Neg Mental Status Examination Appearance: Appropriate Consciousness: Alert Orientation: x4 Motor Activity: Normal gait Speech: Slow Language: Adequate Fund of Knowledge: Adequate Attention and Concentration: Adequate Memory: Unremarkable Mood: Appropriate Affect: Flat Thought Process & Associations: Other ([place]) Thought Content: Thought blocking (Less so today) Hallucination Type: Auditory ("Talking") Delusion Type: Paranoid (Less so today) Suicidal Ideation: No Suicidal Plan: No Suicidal Intention: No Homicidal Ideation: No Homicidal Plan: No Homicidal Intention: No Insight: Poor Judgment: Poor Results Vitals/IOs Vital Signs Date Time Temp Pulse Resp B/P (MAP) Pulse Ox O2 Delivery O2 Flow Rate FiO2 12/05/17 18:33 98.2 84 18 121/67 (85) 100 Assessment & Plan Problem List: (1) Paranoid schizophrenia with prominent negative symptoms ICD Codes: F20.0 - Paranoid schizophrenia Assessment & Plan Patient this time continues to have some auditory hallucinations but reports having decreased in intensity and frequency. Patient appears to be more reactive during interview less thought blocking. We will continue current treatment. Will continue monitor mood and behavior. Patient possible discharge on Friday if continues to improve. Justification for Cont. Inpt. At risk of further decompensation a lower level of care. Discharge Planning Patient return back to his residence was psychiatrically stable. Paolo Malave MD Dec 05, 2017 19:26
[2017-12-05] MEDS: MIRTAZAPINE 15 MG TAB PO SCH (21:01)
[2017-12-06 06:46] VITALS: BP 100/44; PULSE 62; RESP 16; TEMP 98; O2SAT 98
[2017-12-06] MEDS: NICOTINE 21 MG/24 HR PATCH T-DERMAL SCH (09:00)
[2017-12-06] MEDS: REMOVE OLD NICODERM (NICOTINE) PATCH T-DERMAL SCH (09:00)
[2017-12-06] MEDS: HALOPERIDOL 10 MG TAB PO SCH ×2 (09:19→20:00)
[2017-12-06] MEDS: BENZTROPINE MESYLATE 1 MG TAB PO SCH ×2 (09:19→20:00)
[2017-12-06] MEDS: busPIRone HCL 5 MG TAB PO SCH ×3 (09:19→18:03)
--- NOTE | 2017-12-06 17:24 | HHI.PYPN ---
Subjective Remarks Reviewed electronic medical record and discussed case with staff. Follow-up was conducted in the [facility]. Patient states that he slept well his appetite is been good he denies any side effects. His speech is clear, logical, and organized. There is no indication of internal stimulation nor thought blocking. He reports there is a tentative plan for discharge on Friday. Mental Status Examination Appearance: Appropriate Consciousness: Alert Orientation: x4 Motor Activity: Normal gait Speech: Slow Language: Adequate Fund of Knowledge: Adequate Attention and Concentration: Adequate Memory: Unremarkable Mood: Appropriate Affect: Flat Thought Process & Associations: Other ([place]) Thought Content: Thought blocking (Less so today) Hallucination Type: Auditory ("Talking") Delusion Type: Paranoid (Less so today) Suicidal Ideation: No Suicidal Plan: No Suicidal Intention: No Homicidal Ideation: No Homicidal Plan: No Homicidal Intention: No Insight: Poor Judgment: Poor Results Vitals/IOs Vital Signs Date Time Temp Pulse Resp B/P (MAP) Pulse Ox O2 Delivery O2 Flow Rate FiO2 12/06/17 06:46 98.0 62 16 100/44 (62) 98 Assessment & Plan Problem List: (1) Paranoid schizophrenia with prominent negative symptoms ICD Codes: F20.0 - Paranoid schizophrenia Assessment & Plan Estimated LOS: Patient reports of discharge plan for Friday. Continue with current treatment plan. Days Justification for Cont. Inpt. Moving this patient to a less restrictive environment would likely result in decompensation. Brenda Bae Dec 06, 2017 17:24
[2017-12-06 18:29] VITALS: BP 141/62; PULSE 75; RESP 16; TEMP 98; O2SAT 100
[2017-12-06] MEDS: LORazepam 1 MG TAB PO PRN (18:55)
[2017-12-06] MEDS: MIRTAZAPINE 15 MG TAB PO SCH (21:36)
[2017-12-07 06:29] VITALS: BP 112/55; PULSE 62; RESP 18; TEMP 97.8; O2SAT 97
--- NOTE | 2017-12-07 08:37 | HHI.PYPN ---
Subjective Remarks Reviewed electronic medical record discussed case with staff. Follow-up was conducted in patient's room patient found lying on the bed with blanket over his head. He refused to talk throughout the interview however he did nod his head. He nodded yes that he has been sleeping well and that his appetite is okay. He nodded no to side effects of the medication. Staff advised that after being moved to the 2600 unit yesterday he decompensated and had to be placed in the quiet room overnight. He is now back on the 2700 unit. Mental Status Examination Appearance: Appropriate Consciousness: Alert Orientation: x4 Motor Activity: Normal gait Speech: Slow Language: Adequate Fund of Knowledge: Adequate Attention and Concentration: Adequate Memory: Unremarkable Mood: Appropriate Affect: Flat Thought Process & Associations: Other ([place]) Thought Content: Thought blocking (Less so today) Hallucination Type: Auditory ("Talking") Delusion Type: Paranoid (Less so today) Suicidal Ideation: No Suicidal Plan: No Suicidal Intention: No Homicidal Ideation: No Homicidal Plan: No Homicidal Intention: No Insight: Poor Judgment: Poor Results Vitals/IOs Vital Signs Date Time Temp Pulse Resp B/P (MAP) Pulse Ox O2 Delivery O2 Flow Rate FiO2 12/07/17 06:29 97.8 62 18 112/55 (47) 97 Assessment & Plan Problem List: (1) Paranoid schizophrenia with prominent negative symptoms ICD Codes: F20.0 - Paranoid schizophrenia Assessment & Plan Estimated LOS: Patient had to be moved back to a more restrictive environment due to his behaviors. Continue with current treatment and he will be reevaluated by his attending psychiatrist tomorrow. Days Justification for Cont. Inpt. Moving this patient to a less restrictive environment resulted in decompensation. Brenda Bae Dec 07, 2017 08:37
[2017-12-07] MEDS: HALOPERIDOL 10 MG TAB PO SCH ×2 (08:54→21:26)
[2017-12-07] MEDS: busPIRone HCL 5 MG TAB PO SCH ×3 (08:54→17:21)
[2017-12-07] MEDS: BENZTROPINE MESYLATE 1 MG TAB PO SCH ×2 (08:55→21:25)
[2017-12-07] MEDS: NICOTINE 21 MG/24 HR PATCH T-DERMAL SCH (08:57)
[2017-12-07] MEDS: REMOVE OLD NICODERM (NICOTINE) PATCH T-DERMAL SCH (08:57)
[2017-12-07 17:05] VITALS: BP 115/60; PULSE 59; RESP 18; TEMP 98.2; O2SAT 99
[2017-12-07] MEDS: MIRTAZAPINE 15 MG TAB PO SCH (21:26)
[2017-12-08 06:29] VITALS: BP 135/64; PULSE 73; RESP 17; TEMP 98.2; O2SAT 97
[2017-12-08] MEDS: REMOVE OLD NICODERM (NICOTINE) PATCH T-DERMAL SCH (08:33)
[2017-12-08] MEDS: BENZTROPINE MESYLATE 1 MG TAB PO SCH ×2 (08:33→20:39)
[2017-12-08] MEDS: busPIRone HCL 5 MG TAB PO SCH ×3 (08:33→17:23)
[2017-12-08] MEDS: HALOPERIDOL 10 MG TAB PO SCH ×2 (08:33→20:39)
[2017-12-08] MEDS: NICOTINE 21 MG/24 HR PATCH T-DERMAL SCH ×2 (08:34→09:00)
[2017-12-08] MEDS ORDERED: HALOPERIDOL DECANOATE 50 MG/ML VIAL IM SCH (15:00)
--- NOTE | 2017-12-08 17:07 | HHI.PYPN ---
Subjective Remarks Patient seen for follow, chart reviewed. Discussion nursing staff reported the patient over the weekend had been transferred to a less acute unit which did not go well as patient was noted to be agitated verbally abusive and had to be returned back to the higher acuity unit. Patient since has been noted to be laughing at times and some thought blocking. Patient was found lying hospital bed able to wake up for interview. Patient states that everything went well over the weekend and when asked about incidents he stated that he was feeling somewhat angry that he was still here in the hospital but did not have any aggressive behavior toward anyone specific. Patient states that he continues to deny any auditory hallucinations that he primarily came in for the voices and to have assistance to stop smoking. Patient agreeable to long-acting injectable antipsychotic outpatient mental health follow-up upon discharge. Patient mentions you last mother to come and visit with him this evening prior to discharge. Review of Systems Except as stated in HPI: all other systems reviewed are Neg Mental Status Examination Appearance: Appropriate Consciousness: Alert Orientation: x4 Motor Activity: Normal gait Speech: Slow Language: Adequate Fund of Knowledge: Adequate Attention and Concentration: Adequate Memory: Unremarkable Mood: Appropriate Affect: Flat Thought Process & Associations: Other ([place]) Thought Content: Appropriate Hallucination Type: None Delusion Type: None Suicidal Ideation: No Suicidal Plan: No Suicidal Intention: No Homicidal Ideation: No Homicidal Plan: No Homicidal Intention: No Insight: Fair Judgment: Impulsive Results Vitals/IOs Vital Signs Date Time Temp Pulse Resp B/P (MAP) Pulse Ox O2 Delivery O2 Flow Rate FiO2 12/08/17 06:29 98.2 73 17 135/64 (87) 97 Assessment & Plan Problem List: (1) Paranoid schizophrenia with prominent negative symptoms ICD Codes: F20.0 - Paranoid schizophrenia Assessment & Plan Patient this time noted to be more reactive with interview to engaging appropriately. Patient denying all hallucinations at this time although noted to have some negative symptoms. Patient agreeable to Haldol Decanoate and we will administer first dose of 100 mg IM which patient will require outpatient follow-up for booster dose. We will continue current treatment. We will continue to monitor mood and behavior. Patient's mother will visit with patient this evening to assess baseline. Patient likely for discharge tomorrow. Discharge planning a progress. Justification for Cont. Inpt. At risk for further decompensation if at lower level of care Discharge Planning Patient return back to his mother's residence when psychiatrically stable. Paolo Malave MD Dec 08, 2017 17:07
[2017-12-08 17:55] VITALS: BP 145/65; PULSE 92; RESP 18; TEMP 98.4; O2SAT 100
[2017-12-08] MEDS: MIRTAZAPINE 15 MG TAB PO SCH (20:39)
[2017-12-09 05:38] VITALS: BP 100/58; PULSE 60; RESP 17; TEMP 97.6; O2SAT 98
[2017-12-09] MEDS: HALOPERIDOL 10 MG TAB PO SCH (08:43)
[2017-12-09] MEDS: busPIRone HCL 5 MG TAB PO SCH ×2 (08:43→12:38)
[2017-12-09] MEDS: BENZTROPINE MESYLATE 1 MG TAB PO SCH (08:44)
[2017-12-09] MEDS: REMOVE OLD NICODERM (NICOTINE) PATCH T-DERMAL SCH (08:46)
[2017-12-09] MEDS: NICOTINE 21 MG/24 HR PATCH T-DERMAL SCH (08:46)
[2017-12-09] MEDS ORDERED: BUSP5TAB PO (11:49)
[2017-12-09] MEDS ORDERED: Benztropine PO (11:49)
[2017-12-09] MEDS ORDERED: MIRT45TA PO (11:49)
[2017-12-09] MEDS ORDERED: HALO5TAB PO (11:49)
[2017-12-09] MEDS ORDERED: HALO10TA PO (11:49)
--- NOTE | 2017-12-09 11:50 | HHI.DS ---
Psychiatry Discharge Summary Inpatient Psychiatric care?: Yes Advance Directive: No Reason Not Provided: Due to Patient Condition Mental Health AdvanceDirective: No Health Care Proxy: No Admission Admission Date Nov 30, 2017 at 13:36 Admission Diagnosis: (1) Paranoid schizophrenia with prominent negative symptoms ICD Code: F20.0 - Paranoid schizophrenia Brief History The patient is a 22-year-old -Citizen Of [place] man, single, domiciled with his mother, unemployed, on SSI, with psychiatric history of schizophrenia, intellectual disability, multiple psychiatric hospitalizations, just discharge a week ago from 2700 where he was under the care of Dr. Maria, the recommendation reviewed, previous suicide attempts, no significant medical history, outpatient psychiatric care, he is on Remeron 45 mg, Haldol 10 mg in the morning, 15 mg at bedtime, benztropine 1 mg twice daily, BuSpar 5 mg daily, Who was brought to the ER voluntarily due to increased auditory hallucinations of voices telling her to kill himself. Patient was seen for psychiatric evaluation in the od. Case discussed with ER staff. Collateral information from his mother obtained. On psychiatric evaluation the patient is very flat, seems to be internally preoccupied, guarded, suspicious, just superficially cooperative in the interview. He reports that he has been hearing increase in intensity and volume voices telling him to kill himself. He says that the voices are very loud "can you hear them??". He denies suicidal and homicidal ideation, he denies visual hallucinations. He is oriented 3 per Past psychiatric history: History of schizophrenia, multiple psychiatric admissions, 3 hospitalization this year in [place], he is on Haldol 10 mg in the morning, 15 mg at bedtime benztropine 1 mg twice daily, BuSpar 5 mg daily, Remeron 45 mg he follows with Dr. Ashby. He reports that he is compliant with his psychotropic medications. He denies any history of psychiatric admissions or suicide attempts. Family history: The patient denies a family history of mental illness. Chemical dependency history: Patient denies any abuse of drugs or alcohol. Social history: Patient had been living with his mother, single, unemployed. No reported access to guns or firearms. Tobacco Use In Past 30 Days: 5 or More Cigarettes/Day Alcohol Use: Never Hospital Course The patient is a 22-year-old -Citizen Of [place] man, single, domiciled with his mother, unemployed, on SSI, with psychiatric history of schizophrenia, intellectual disability, multiple psychiatric hospitalizations, just discharge a week ago from inpatient unit, previous suicide attempts, no significant medical history, outpatient psychiatric care, who was brought to the ER voluntarily due to increased auditory hallucinations of voices telling her to kill himself which patient was admitted to the inpatient psychiatry for further evaluation and management. Patient was continued on haloperidol and titrated to 10mg/15mg, benztropine 1mg PO BID, mirtazapine 45mg PO HS, buspirone 5mg PO TID, and administered Haldol decanoate 100mg IM which patient tolerated well with no adverse drug reactions. Patient throughout admission was noted to calm and cooperative with staff, with some behavioral disturbances, disorganized with internal preoccupation initially which began to resolve with ongoing treatment, with evidence of continued negative symptoms but denying any positive symptoms prior to discharge. Patient through progression of treatment was noted to be more organized, participating in groups, and denying any perceptual disturbances. Upon discharge patient stated feeling good, stated feeling okay with returning back to mother; noted to be calm and cooperative and stated that he would be willing to continue treatment and follow-up. He agreed to continuing medical recommendations, treatment and cooperate for continuity of care. Patient denies SI, HI, AVH or delusions. Supportive psychotherapy provided. Collateral from patient's mother had no concerns with patient returning home and felt patient was ready to return back the home. Patient advised to call 911 or go nearest ED in case of emergency. Suicide and violence risk assessment on day of discharge both suggest low imminent risk, and the patient's level of function is adequate for planned level of outpatient care. Patient has maximized benefit from this inpatient psychiatric hospital stay and to return to psychiatric emergency room for any concerning psychiatric symptoms. Patient agrees with plan. Results Blood Pressure 100 / 58 Vital Signs Date Time Temp Pulse Resp B/P (MAP) Pulse Ox O2 Delivery O2 Flow Rate FiO2 12/09/17 05:38 97.6 60 17 100/58 (72) 98 WNL Summary of Procedures none Pending results at discharge: No Medications # of Antipsychotic meds at D/C: 1 Approp Antipsych med options 1 - Minimum of three failed multiple trials of monotherapy. 2 - Documented plan to taper to monotherapy due to previous use of multiple meds OR cross-taper in progress at D/C. 3 - Documentation of augmentation of Clozapine. 4 - Justification other than those listed in allowable values 1-3, document here : Discharge Discharge Date: Dec 09, 2017 Discharge Diagnosis: (1) Paranoid schizophrenia with prominent negative symptoms ICD Code: F20.0 - Paranoid schizophrenia Pt Condition on Discharge: Stable Discharge Disposition: Discharge Home Discharge Instructions Diet Instructions: As Tolerated, No Restrictions Activities you can perform: Regular-No Restrictions Scheduled Appointment: [facility] Discharge Time > 30 minutes Mental Status Examination Appearance: Appropriate Consciousness: Alert Orientation: x4 Motor Activity: Normal gait Speech: Slow Language: Adequate Fund of Knowledge: Adequate Attention and Concentration: Adequate Memory: Unremarkable Mood: Appropriate Affect: Flat Thought Process & Associations: Other ([place]) Thought Content: Appropriate Hallucination Type: None Delusion Type: None Suicidal Ideation: No Suicidal Plan: No Suicidal Intention: No Homicidal Ideation: No Homicidal Plan: No Homicidal Intention: No Insight: Fair Judgment: Impulsive Discharge/Advance Care Plan Health Problems: (1) Paranoid schizophrenia with prominent negative symptoms Goals to promote your health * To prevent worsening of your condition and complications * To maintain your health at the optimal level Directions to meet your goals Take your medications as prescribed Follow your dietary instruction Follow activity as directed Keep your appointments as scheduled Take your immunizations and boosters as scheduled If your symptoms worsen call your PCP, if no PCP go to Urgent Care Center or Emergency Room For 06/01 questions related to your inpatient stay or results of tests pending at discharge, please contact Dr. Paolo Malave at Smoking is Dangerous to Your Health. Avoid second hand smoking Paolo Malave MD Dec 09, 2017 11:50
== END 2017-12-09 14:55 | disposition home or self-care (01) | DRG 885 ==
LOC: NEPJ 19:33 → NEDA 11-30 13:36 → H270 11-30 15:47 → H260 12-06 14:45 → H270 12-07 08:00
PROVIDERS: ADMIT Student in an Organized Health Care Education/Training Program; ATTEND Student in an Organized Health Care Education/Training Program
DX: F20.0 Paranoid schizophrenia (principal); F79 Unspecified intellectual disabilities; F17.210 Nicotine dependence, cigarettes, uncomplicated; Z91.5 Personal history of self-harm
CPT/HCPCS: 80048; 85025; 96372; J1631; J2060

== ENCOUNTER 2018-03-22 17:40 | Inpatient (IN) ==
--- NOTE | 2018-03-22 18:54 | ED ---
HPI General Chief Complaint: Psychiatric Symptoms Stated Complaint: psych eval Time Seen by Provider: 03/22/18 18:37 Source: patient Mode of arrival: ambulatory Limitations: no limitations History of Present Illness HPI Narrative: 23-year-old male with a history of asthma, psychosis and questionable schizophrenia presents to the emergency department the request of his mother, Haylee. Received 2 histories but she states that she was concerned because patient developed chest pain. Patient said that he developed it as he came to the emergency department today. He states that his chest pain is midsternal, nonradiating, aching, constant and better with sleeping. Says his pain is 3-4/10 and is a "hard ache". He denies fever, chills, nausea, shortness of breath vomiting or diarrhea. Denies history of IV drug use. Denies illicit drug use. Denies any other medical issues except for the previously mentioned. [facility] which include Remeron, buspirone, benztropine. Denies suicidal or homicidal ideations. Mother states that his medication change about a week and a half ago. Says that he was taken off of Haldol and other medications were changed. Denies recent travel, PE/DVT, surgeries, immobilizations, fracture. Would like to speak with our psychiatry team. Onset (ago): minute(s) Relieving factors: other (Sleeping) Context: Reports new medication(s) Associated psychiatric symptoms: Reports auditory hallucinations and visual hallucinations (unable to confirm) Associated symptoms: Reports denies other symptoms Related Data Home Medications Medication Instructions Recorded Confirmed Unable to Obtain Home Meds 03/22/18 03/22/18 Allergies Allergy/AdvReac Type Severity Reaction Status Date / Time aspirin Allergy Severe TACHYCARDIA Unverified 03/22/18 22:11 Review of Systems ROS: all other systems reviewed are negative [facility] Medical History Medical History Asthma (Acute) Medical history unknown (Acute) Surgical history unknown (Acute) Surgical history unknown (Acute) Social History Social History Substance History: No History of Abuse Second Hand Smoke Exposure: Yes Smoking Status: Never smoker Tobacco Type: Cigarettes How Often Do You Have a Drink Containing Alcohol: Never Recent Travel in [facility] within the Last 8 Weeks: No Recent Out of Country Travel within the Last 8 Weeks: No Immunization History Tetanus Immunization: Unsure Exam Narrative Exam Narrative: GENERAL: WD, Wn in NAD SKIN: Focused skin assessment warm/dry. HEAD: Atraumatic. Normocephalic. EYES: Pupils equal and round. No scleral icterus. No injection or drainage. ENT: No nasal bleeding or discharge. Mucous membranes pink and moist. NECK: Trachea midline. No JVD. No anterior cervical lymphadenopathy CARDIOVASCULAR: Regular rate and rhythm. No murmur appreciated. RESPIRATORY: No accessory muscle use. Clear to auscultation. Breath sounds equal bilaterally. GASTROINTESTINAL: Abdomen soft, non-tender, nondistended. Hepatic and splenic margins not palpable. MUSCULOSKELETAL: No obvious deformities. No clubbing. No cyanosis. No edema. No tenderness palpation of the chest wall. No tenderness palpation of the calves NEUROLOGICAL: Awake and alert. No obvious cranial nerve deficits. Motor grossly within normal limits. Normal speech. PSYCHIATRIC: Appropriate mood and affect; insight and judgment normal. Course Initial Documented Vital Signs Temperature 97.9 F 03/22/18 17:43 Pulse Rate 105 H 03/22/18 17:43 Respiratory Rate 20 03/22/18 17:43 Blood Pressure 140/62 03/22/18 17:43 Pulse Oximetry 98 03/22/18 17:43 Last Documented Vital Signs Temperature 98.5 F 03/24/18 19:24 Pulse Rate 79 03/24/18 05:50 Respiratory Rate 16 03/24/18 05:50 Blood Pressure 134/65 03/24/18 05:50 Pulse Oximetry 100 03/24/18 05:50 Medical Decision Making [facility] Narrative Medical decision making narrative: 23-year-old male presents to the emergency department evaluation of chest pain and mother requested he come in for evaluation of his medications for his psych history. I have a very low suspicion of ACS based off of H&P however, will evaluate with troponin. 23-year-old male with complaint of chest pain and request for voluntary psychiatric evaluation signed out to me with labs pending. Chest x-ray, EKG, troponins without acute abnormalities. Basic lab work unremarkable. Patient's medically clear for psychiatric evaluation. Medical Screen Exam Complete: Yes Emergency Medical Condition: Yes Differential Diagnosis Differential Diagnosis: Atypical chest pain, malingering, schizophrenia, medication noncompliance Lab Data Result diagrams: 03/22/18 19:08 03/24/18 05:58 Lab Results 03/22/18 03/22/18 03/22/18 Range/Units 19:08 19:08 19:08 WBC 11.7 H (4.0-11.0) th/mm3 RBC 5.23 (4.50-5.90) mil/mm3 Hgb 13.7 (13.0-17.0) gm/dL Hct 41.8 (39.0-51.0) % MCV 80.0 (80.0-100.0) fL MCH 26.3 L (27.0-34.0) pg MCHC 32.9 (32.0-36.0) % RDW 12.8 (11.6-17.2) % Plt Count 321 (150-450) th/mm3 MPV 8.1 (7.0-11.0) fL Neut % (Auto) 63.8 (16.0-70.0) % Lymph % (Auto) 25.1 (9.0-44.0) % Lynn % (Auto) 8.7 H (0.0-8.0) % Eos % (Auto) 1.7 (0.0-4.0) % Baso % (Auto) 0.7 (0.0-2.0) % Neut # (Auto) 7.4 (1.8-7.7) th/mm3 Lymph # (Auto) 2.9 (1.0-4.8) th/mm3 Lynn # (Auto) 1.0 H (0.0-0.9) th/mm3 Eos # (Auto) 0.2 (0.0-0.4) th/mm3 Baso # (Auto) 0.1 (0.0-0.2) th/mm3 WBC Differential . Differential Comment Auto diff final PT 11.4 (9.8-11.6) sec INR 1.1 Ratio APTT 27.2 (24.3-30.1) sec Sodium 141 (136-145) meq/L Potassium 4.0 (3.5-5.1) meq/L Chloride 107 (98-107) meq/L Carbon Dioxide 28.0 (21.0-32.0) meq/L Anion Gap 6 (5-15) meq/L BUN 10 (7-18) mg/dL Creatinine 0.99 (0.60-1.30) mg/dL Estimated GFR Greater than 89 (>89) mL/min Random Glucose 82 (74-106) mg/dL Calcium 9.2 (8.5-10.1) mg/dL Total Bilirubin 0.4 (0.2-1.0) mg/dL AST 13 L (15-37) U/L ALT 14 (12-78) U/L Alkaline Phosphatase 80 (45-117) U/L Troponin I Less than 0.02 L (0.02-0.05) ng/mL Total Protein 7.9 (6.4-8.2) g/dL Albumin 3.6 (3.4-5.0) g/dL Triglycerides (42-150) mg/dL Cholesterol (120-200) mg/dL LDL Cholesterol, Calc (0-99) mg/dL HDL Cholesterol (40.0-60.0) mg/dL Cholesterol/HDL Ratio Ratio TSH 0.529 (0.358-3.740) uIU/mL Urine Opiates Screen (Neg) Ur Barbiturates Screen (Neg) Ur Amphetamines Screen (Neg) U Benzodiazepines Scrn (Neg) Urine Cocaine Screen (Neg) U Cannabinoids Screen (Neg) Serum Alcohol Less than 3 (0-5) mg/dL 03/23/18 03/24/18 Range/Units 06:47 05:58 WBC (4.0-11.0) th/mm3 RBC (4.50-5.90) mil/mm3 Hgb (13.0-17.0) gm/dL Hct (39.0-51.0) % MCV (80.0-100.0) fL MCH (27.0-34.0) pg MCHC (32.0-36.0) % RDW (11.6-17.2) % Plt Count (150-450) th/mm3 MPV (7.0-11.0) fL Neut % (Auto) (16.0-70.0) % Lymph % (Auto) (9.0-44.0) % Lynn % (Auto) (0.0-8.0) % Eos % (Auto) (0.0-4.0) % Baso % (Auto) (0.0-2.0) % Neut # (Auto) (1.8-7.7) th/mm3 Lymph # (Auto) (1.0-4.8) th/mm3 Lynn # (Auto) (0.0-0.9) th/mm3 Eos # (Auto) (0.0-0.4) th/mm3 Baso # (Auto) (0.0-0.2) th/mm3 WBC Differential Differential Comment PT (9.8-11.6) sec INR Ratio APTT (24.3-30.1) sec Sodium 143 (136-145) meq/L Potassium 3.6 (3.5-5.1) meq/L Chloride 108 H (98-107) meq/L Carbon Dioxide 26.4 (21.0-32.0) meq/L Anion Gap 9 (5-15) meq/L BUN 9 (7-18) mg/dL Creatinine 0.81 (0.60-1.30) mg/dL Estimated GFR Greater than 89 (>89) mL/min Random Glucose 89 (74-106) mg/dL Calcium 8.3 L D (8.5-10.1) mg/dL Total Bilirubin (0.2-1.0) mg/dL AST (15-37) U/L ALT (12-78) U/L Alkaline Phosphatase (45-117) U/L Troponin I (0.02-0.05) ng/mL Total Protein (6.4-8.2) g/dL Albumin (3.4-5.0) g/dL Triglycerides 74 (42-150) mg/dL Cholesterol 125 (120-200) mg/dL LDL Cholesterol, Calc 76 (0-99) mg/dL HDL Cholesterol 34.7 L (40.0-60.0) mg/dL Cholesterol/HDL Ratio 3.60 Ratio TSH (0.358-3.740) uIU/mL Urine Opiates Screen Neg (Neg) Ur Barbiturates Screen Neg (Neg) Ur Amphetamines Screen Neg (Neg) U Benzodiazepines Scrn Neg (Neg) Urine Cocaine Screen Neg (Neg) U Cannabinoids Screen Neg (Neg) Serum Alcohol (0-5) mg/dL Imaging Data Radiologist's impression: Chest X-Ray 03/22/18 18:46 CONCLUSION: No acute intrathoracic disease. Stable exam. Discharge Plan Discharge Disposition Patient Disposition: Discharge Home Discharge Condition Condition: Stable Discharge Details Diagnosis: Atypical chest pain Physicians Team ED Provider: Yves Sams ED Midlevel Provider: Aurelia Cramer Primary Care Provider: Yaquelin Ashby Attending Provider: Roland Durant Status ED Status: Left Department Discharge Information Discharge Date/Time: 03/23/18 14:25
--- NOTE | 2018-03-22 19:02 | XR ---
EXAM DATE: 03/22/2018 6:46 PM EDT AGE/SEX: 23 years / Male INDICATIONS: Chest pain CLINICAL DATA: This is the patient's initial encounter. Patient reports that signs and symptoms have been present for 1 day and indicates a pain score of 0/10. MEDICAL/SURGICAL HISTORY: None. None. [place]PAR[place] [facility] [place]. . FINDINGS: A single AP view of the chest demonstrates the lungs to be symmetrically aerated without evidence of mass, infiltrate or effusion. The cardiomediastinal contours are unremarkable. Osseous structures a re intact. CONCLUSION: No acute intrathoracic disease. Stable exam. Electronically signed by: Marino Colvin MD 03/22/2018 7:01 PM EDT
[2018-03-22 19:23] LABS: Baso # (Auto) 0.1 th/mm3 (0.0-0.2); Baso % (Auto) 0.7 % (0.0-2.0); Eos # (Auto) 0.2 th/mm3 (0.0-0.4); Eos % (Auto) 1.7 % (0.0-4.0); Hematocrit 41.8 % (39.0-51.0); Hemoglobin 13.7 gm/dL (13.0-17.0); Lymph # (Auto) 2.9 th/mm3 (1.0-4.8); Lymph % (Auto) 25.1 % (9.0-44.0); Mean Corpuscular HGB Conc 32.9 % (32.0-36.0); Mean Corpuscular Hemoglobin 26.3 pg (27.0-34.0); Mean Platelet Volume 8.1 fL (7.0-11.0); Mono % (Auto) 8.7 % (0.0-8.0); Neut # (Auto) 7.4 th/mm3 (1.8-7.7); Neut % (Auto) 63.8 % (16.0-70.0); Platelet Count 321 th/mm3 (150-450); Red Blood Count 5.23 mil/mm3 (4.50-5.90); Red Cell Distribution Width 12.8 % (11.6-17.2); White Blood Count 11.7 th/mm3 (4.0-11.0)
[2018-03-22 19:39] LABS: Activated Partial Thrombo Time 27.2 sec (24.3-30.1); INR 1.1 Ratio; Prothrombin Time 11.4 sec (9.8-11.6)
[2018-03-22 19:41] LABS: Albumin 3.6 g/dL (3.4-5.0); Anion Gap 6 meq/L (5-15); Aspartate Aminotransferase 13 U/L (15-37); Blood Urea Nitrogen 10 mg/dL (7-18); Calcium 9.2 mg/dL (8.5-10.1); Chloride 107 meq/L (98-107); Glomerular Filtration Rate Greater Than 89 mL/min (>89); Glucose,Random 82 mg/dL (74-106); Sodium 141 meq/L (136-145)
[2018-03-22 19:42] LABS: Alanine Aminotransferase 14 U/L (12-78)
[2018-03-22 19:51] LABS: Alkaline Phosphatase 80 U/L (45-117); Thyroid Stimulating Hormone 0.529 uIU/mL (0.358-3.740); Total Protein 7.9 g/dL (6.4-8.2)
[2018-03-23 07:11] LABS: Amphetamine Screen,Urine Neg (Neg); Barbiturate Screen,Urine Neg (Neg); Cannabinoid Screen,Urine Neg (Neg); Cocaine Screen,Urine Neg (Neg)
[2018-03-23 07:15] LABS: Opiate Screen,Urine Neg (Neg)
--- NOTE | 2018-03-23 10:27 | ECG ---
Date Performed: 03/22/2018 Time Performed: 19:05:42 PTAGE: 23 years EKG: Sinus rhythm NORMAL ECG Since the PREVIOUS TRACING , no significant change noted PREVIOUS TRACIN07/04/2017 09.02 DOCTOR: Elif Lee Interpretating Date/Time 03/23/2018 10:23:41
[2018-03-23] MEDS ORDERED: Aluminum/Magnesium/Simethacone Susp 30 ML UDC PO PRN (12:25)
[2018-03-23] MEDS ORDERED: Acetaminophen 325 MG Tablet PO PRN (12:25)
--- NOTE | 2018-03-23 17:25 | P.CONPSY ---
Provisional Diagnosis Admission Date: March 23, 2018 12:34 [place] I.: Schizophrenia History of Present Illness Consult date: 03/23/18 Primary Care Provider: Yaquelin Ashby MD History of Present Illness: This is a 23-year-old single, -Ind[place]ian male who presents voluntarily to this facility reporting increasing positive schizophrenic symptoms. He is well- known to the psychiatric department at this facility and his last inpatient admission was from November 30- of this year. Reviewed electronic medical record, labs, and discussed case with staff. Patient's toxicology screen is negative. He was evaluated in his room and delta pod. He was found pacing around in the room talking to himself. He is alert and oriented times place and self at least. His speech is clear, mostly logical, organized, and of normal volume. However, there is obvious thought blocking occurring as well as internal stimulation. He admits to intermittent auditory hallucinations but is unable to elaborate on what they are saying. Review of Systems All other systems reviewed negative except as stated in HPI PMFSH - History History Provided By: Patient - Medical History Medical History: Medical History (Last Reviewed 03/23/18 @ 17:17 by JULIA Noguera) Asthma Medical history unknown Surgical history unknown - Tobacco History Second Hand Smoke Exposure: Yes Tobacco Use In Past 30 Days: Yes Smoking Status: Never smoker Tobacco Type: Cigarettes - Alcohol History How Often Do You Have a Drink Containing Alcohol: Never - Substance Use History Substance History: No History of Abuse - Travel History Recent Travel in the USA Within the Last 8 Weeks: No Recent Travel Out of the Country Within the Last 8 Weeks: No - Immunization History Tetanus Immunization: Unsure Hx Influenza Vaccine This Season: Unable to Assess Medications and Allergies Active Medications: Active Medications Acetaminophen (Tylenol) 650 mg PO Q4H PRN PRN Reason: Pain 1-5 or Temp >101F Al Hydrox/Mg Hydrox/Simethicone (Mag-Al Plus Susp Liq) 30 ml PO Q6H PRN PRN Reason: DYSPEPSIA Al Hydroxide/Mg Hydroxide (Milk Of Magnesia Liq) 30 ml PO Q12H PRN PRN Reason: Mild Constipation Diphenhydramine HCl (Benadryl) 50 mg PO HS PRN PRN Reason: INSOMNIA Hydroxyzine HCl (Atarax) 50 mg PO Q6H PRN PRN Reason: ANXIETY Sodium Chloride (Ns Flush) 2 ml IV.FLUSH UNSCH PRN PRN Reason: FLUSH AFTER USING IV ACCESS Allergies Allergy/AdvReac Type Severity Reaction Status Date / Time aspirin Allergy Severe TACHYCARDIA Unverified 03/22/18 22:11 Home Medications Medication Instructions Recorded Confirmed Type Unable to Obtain Home Meds 03/22/18 03/22/18 History Exam Vital signs: Vital Signs 03/22/18 17:43 03/23/18 07:35 03/23/18 10:43 Temperature 97.9 F Pulse Rate 105 H 68 Respiratory Rate 20 17 Blood Pressure 140/62 123/63 Pulse Oximetry 98 98 100 03/23/18 13:58 Temperature 98.1 F Pulse Rate 81 Respiratory Rate 18 Blood Pressure 121/60 Pulse Oximetry Intake & Output 03/22/18 03/23/18 03/23/18 18:59 06:59 18:59 Weight 148 lb 139 lb 12.369 oz Other: Weight On Admission 139 lb 12.369 oz - Constitutional mild distress, thin, disheveled - Routine Neurological Exam Present: alert - Routine Psychiatric Exam Present: auditory hallucinations, cooperative - Detailed Psychiatric Exam Mood and affect: Present: flat Thought process: Present: impoverished Mental Status Examination Appearance: Disheveled Consciousness: Alert Orientation: Person, Place Motor Activity: Normal gait Speech: Hesitant Language: Adequate Fund of Knowledge: Inadequate Attention and Concentration: Easily distracted Memory: Impaired Mood: Anxious Affect: Anxious Thought Process & Associations: Goal directed (Ongoing to J pod) Thought Content: Hallucinations, Thought blocking, Other (Impoverished) Hallucination Type: Auditory (Intermittent, unable to elaborate on content) Delusion Type: None Suicidal Ideation: No Suicidal Plan: No Suicidal Intention: No Homicidal Ideation: No Homicidal Plan: No Homicidal Intention: No Insight: Poor Judgment: Poor Assessment and Plan - Assessment (1) Schizophrenia Code(s): F20.9 - Schizophrenia, unspecified Status: Acute - Plan Plan: Due to the obvious internal stimulation and thought blocking as well as patient' s extensive previous mental health history I am admitting this patient to a locked inpatient psychiatric unit for further evaluation and treatment as deemed necessary. He has signed voluntary paperwork and consents for PRN medications. Justification for Continued Inpatient Stay: Moving this patient to a lower level of care would likely result in decompensation. He will require psychiatric evaluation and stabilization as he may be a harm to himself or others.
[2018-03-24 07:23] LABS: Anion Gap 9 meq/L (5-15); Blood Urea Nitrogen 9 mg/dL (7-18); Calcium 8.3 mg/dL (8.5-10.1); Carbon Dioxide 26.4 meq/L (21.0-32.0); Chloride 108 meq/L (98-107); Cholesterol 125 mg/dL (120-200); Glomerular Filtration Rate Greater Than 89 mL/min (>89); Glucose,Random 89 mg/dL (74-106); HDL Cholesterol 34.7 mg/dL (40.0-60.0); LDL Cholesterol,Calculated 76 mg/dL (0-99); Potassium 3.6 meq/L (3.5-5.1); Sodium 143 meq/L (136-145); Triglycerides 74 mg/dL (42-150)
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
[2018-03-24 18:00] LABS: Hemoglobin A1c 5.5 % (4.3-6.0)
--- NOTE | 2018-03-25 16:02 | P.PNPSY ---
Subjective Remarks: Patient seen in his room with nurse Daja, chart reviewed, it appears there is been documentation of the ER chart that patient's Haldol was discontinued by his outpatient clinician that has been reported by patient's mother. Thus staff last night discontinued the Haldol. Upon further review of his medical records I find that he has been on Resporal in the past. We will start Resporal 2 mg twice daily on this patient. Patient seen in his room he continues markedly distracted with thought blocking continues to look over his right shoulder. He also acknowledged auditory hallucinations of multiple voices that are quite disturbing to him Review of Systems All other systems reviewed negative except as stated in HPI Mental Status Examination Appearance: Disheveled Consciousness: Alert Orientation: Person, Place Motor Activity: Normal gait Speech: Hesitant Language: Adequate Fund of Knowledge: Inadequate Attention and Concentration: Easily distracted Memory: Impaired Mood: Irritable, Other (Restricted) Affect: Other (Slight increased range and intensity) Thought Process & Associations: Disorganized (Mildly) Thought Content: Hallucinations, Thought blocking, Other (Impoverished) Hallucination Type: Auditory (Intermittent, unable to elaborate on content) Delusion Type: None Suicidal Ideation: No Suicidal Plan: No Suicidal Intention: No Homicidal Ideation: No Homicidal Plan: No Homicidal Intention: No Insight: Poor Judgment: Poor Assessment and Plan - Assessment (1) Schizophrenia Code(s): F20.9 - Schizophrenia, unspecified Status: Acute - Plan Plan: Patient continues psychotic delusional paranoid see medication adjustments above Justification for Continued Inpatient Stay: At this time patient would decompensate a place to a lower level of care Discharge Planning: To be determined Request Healthcare Surrogate/Guardian Advocate?: No (1) Schizophrenia Qualifiers: Schizophrenia type: paranoid schizophrenia Qualified Code(s): F20.0 - Paranoid schizophrenia
--- NOTE | 2018-03-26 14:50 | P.PNPSY ---
Subjective Remarks: Patient seen in his room with nurse Catrachito. Patient laying in bed with covers to his children. Patient arousable to alert he is vague about voices today he is compliant with medications. He does state he would be going back to live with his mother when he is discharged. He also makes a gesture at agreeing to be compliant with medications and mental health follow-up in the community for now continue treatment. Patient has been no behavior problems though he does isolate somewhat Review of Systems All other systems reviewed negative except as stated in HPI Mental Status Examination Appearance: Disheveled Consciousness: Alert Orientation: Person, Place Motor Activity: Normal gait Speech: Hesitant Language: Adequate Fund of Knowledge: Inadequate Attention and Concentration: Easily distracted Memory: Impaired Mood: Irritable, Other (Restricted) Affect: Other (Slight increased range and intensity) Thought Process & Associations: Disorganized (Mildly) Thought Content: Hallucinations, Thought blocking, Other (Impoverished) Hallucination Type: Auditory (Intermittent, unable to elaborate on content) Delusion Type: None Suicidal Ideation: No Suicidal Plan: No Suicidal Intention: No Homicidal Ideation: No Homicidal Plan: No Homicidal Intention: No Insight: Poor Judgment: Poor Assessment and Plan - Assessment (1) Schizophrenia Code(s): F20.9 - Schizophrenia, unspecified Status: Acute - Plan Plan: Patient remains isolated but calm low behavioral problems, compliant with medication. States the voices are diminishing now he denies suicidality homicidality for now continue treatment Justification for Continued Inpatient Stay: At this time patient would decompensate a place to a lower level of care Discharge Planning: Probable return home with family Request Healthcare Surrogate/Guardian Advocate?: No (1) Schizophrenia Qualifiers: Schizophrenia type: paranoid schizophrenia Qualified Code(s): F20.0 - Paranoid schizophrenia
[2018-03-27 06:20] VITALS: BP 121/74; PULSE 79; RESP 18; TEMP 97.1; O2SAT 100
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
== END 2018-03-27 16:10 | disposition home or self-care (01) ==
LOC: NEPD 17:40 → NEDA 03-23 12:34 → H270 03-23 13:36
PROVIDERS: ADMIT Psychiatry & Neurology Psychiatry; ATTEND Psychiatry & Neurology Psychiatry